=== PATIENT | male | born 1995 | race Caucasian/White ===

== ENCOUNTER 2018-02-04 01:46 | Inpatient (IN) | payer BC ==
[2018-02-04 03:18] LABS: BASO # 0.1 10^3/uL (0.0-0.2); BASO % 0.5 % (0.0-1.0); EOS # 0.2 10^3/uL (0.0-0.50); EOS % 2.5 % (0.0-3.0); HEMATOCRIT 47.1 % (42.0-52.0); HEMOGLOBIN 16.3 g/dl (13.5-17.5); IMMATURE GRANULOCYTE % 0.3 % (0-3.0); LYMPH # 1.8 10^3/uL (1.5-6.5); LYMPH % 18.4 % (24.0-44.0); MEAN CORPUSCULAR HGB CONC 34.6 g/dl (32.0-36.5); MEAN CORPUSCULAR VOLUME 86.6 fl (80.0-96.0); MONO # 0.8 10^3/uL (0.0-0.8); MONO % 8.6 % (0.0-5.0); NEUTROPHILS # 6.6 10^3/uL (1.8-7.7); NEUTROPHILS % 69.7 % (36.0-66.0); PLATELET COUNT, AUTOMATED 188 10^3/uL (150-450); RED BLOOD COUNT 5.44 10^6/uL (4.30-6.10); RED CELL DISTRIBUTION WIDTH 12.4 % (11.5-14.5); WHITE BLOOD COUNT 9.5 10^3/uL (4.0-10.0)
[2018-02-04 03:39] LABS: ALBUMIN 4.9 GM/DL (3.2-5.2); ALBUMIN/GLOBULIN RATIO 1.58 (1.00-1.93); ALKALINE PHOSPHATASE 72 U/L (45-117); ALT/SGPT 45 U/L (12-78); ANION GAP 9 MEQ/L (8-16); AST/SGOT 26 U/L (7-37); BILIRUBIN,DIRECT 0.2 MG/DL (0.0-0.2); BILIRUBIN,TOTAL 0.7 MG/DL (0.2-1.0); BLOOD UREA NITROGEN 37 MG/DL (7-18); CALCIUM LEVEL 9.9 MG/DL (8.5-10.1); CARBON DIOXIDE LEVEL 29 MEQ/L (21-32); CHLORIDE LEVEL 103 MEQ/L (98-107); CREATININE FOR GFR 1.18 MG/DL (0.70-1.30); GLOMERULAR FILTRATION RATE > 60.0 (>60); GLUCOSE, FASTING 109 MG/DL (70-100); LIPASE 76 U/L (73-393); POTASSIUM SERUM 3.7 MEQ/L (3.5-5.1); SODIUM LEVEL 141 MEQ/L (136-145)
[2018-02-04] MEDS: NS 1,000 ML IV ×2 (04:27→08:03)
[2018-02-04] MEDS: GASTROGRAFIN SOLUTION 30ML PO ×2 (05:13→06:16)
[2018-02-04] MEDS ORDERED: ISOVUE-370 76% 100ML VIAL (Q9967) As Ordered (06:15)
[2018-02-04] MEDS: LR 1,000 ML IV ×3 (08:40→23:59)
[2018-02-04] MEDS: MORPHINE 4 MG/ML 1ML VIAL/SYRINGE (J2270) IV ×2 (08:43→10:53)
[2018-02-04] MEDS ORDERED: ONDANSETRON 4MG/2ML VIAL (J2405) IV (08:45)
[2018-02-04] MEDS ORDERED: ACETAMINOPHEN TAB 650MG DOSE (2X325MG) PO (08:45)
[2018-02-04] MEDS: KETOROLAC 30 MG/ML VIAL (J1885) IV (14:12)
[2018-02-04] MEDS: FLEET ENEMA PR (14:12)
== END 2018-02-05 01:16 | disposition left against medical advice (07) | DRG 247 ==
LOC: M ED 01:46 → M ED INP 08:31 → M MS5PR 13:00
DX: K56.600 Partial intestinal obstruction, unspecified as to cause (principal); K59.00 Constipation, unspecified; Z88.8 Allergy status to other drugs, medicaments and biological substances; Z88.5 Allergy status to narcotic agent

== ENCOUNTER → 2018-09-17 | Outpatient (CLI) | payer BC ==
[~2018-09-17] MED LIST: ACET500T2 OR; CONC18TA OR; SERAQUEL; Seroquel; no home meds
== END ==
LOC: M OUTALCOH 09:21
PROVIDERS: ATTEND Psychiatry & Neurology Psychiatry
DX: Z13.89 Encounter for screening for other disorder (principal); F15.20 Other stimulant dependence, uncomplicated

== ENCOUNTER → 2018-10-03 | Outpatient (RCR) | payer BC | LOC: M OUTALCOH 09-25 08:33 | PROVIDERS: ATTEND Psychiatry & Neurology Psychiatry | DX: F15.20 Other stimulant dependence, uncomplicated (principal); F12.10 Cannabis abuse, uncomplicated; F17.200 Nicotine dependence, unspecified, uncomplicated ==

== ENCOUNTER 2018-10-29 08:49 | Outpatient (RCR) | payer BC | END 2018-11-03 | LOC: M OUTALCOH 08:49 | PROVIDERS: ATTEND Psychiatry & Neurology Psychiatry | DX: F15.20 Other stimulant dependence, uncomplicated (principal); F12.10 Cannabis abuse, uncomplicated; F17.200 Nicotine dependence, unspecified, uncomplicated ==

== ENCOUNTER 2019-01-02 10:00 | Outpatient (RCR) | payer BC | END 2019-01-03 | LOC: M OUTALCOH 10:00 | PROVIDERS: ATTEND Psychiatry & Neurology Psychiatry | DX: F15.20 Other stimulant dependence, uncomplicated (principal); F12.10 Cannabis abuse, uncomplicated; F17.200 Nicotine dependence, unspecified, uncomplicated ==

== ENCOUNTER 2019-01-31 08:45 | Outpatient (RCR) | payer BC | END 2019-02-02 | LOC: M OUTALCOH 08:45 | PROVIDERS: ATTEND Psychiatry & Neurology Psychiatry | DX: F15.20 Other stimulant dependence, uncomplicated (principal); F12.10 Cannabis abuse, uncomplicated; F17.200 Nicotine dependence, unspecified, uncomplicated ==

== ENCOUNTER 2019-02-21 08:45 | Outpatient (RCR) | payer BC | END 2019-03-05 | LOC: M OUTALCOH 08:45 | PROVIDERS: ATTEND Psychiatry & Neurology Psychiatry | DX: F15.20 Other stimulant dependence, uncomplicated (principal); F12.10 Cannabis abuse, uncomplicated; F17.200 Nicotine dependence, unspecified, uncomplicated ==

== ENCOUNTER → 2020-02-09 | Outpatient (CLI) | payer OTHER | LOC: M OUTALCOH 09:42 | PROVIDERS: ATTEND Psychiatry & Neurology Addiction Medicine | DX: F15.20 Other stimulant dependence, uncomplicated (principal) ==

== ENCOUNTER 2020-03-03 16:00 | Outpatient (RCR) | payer OTHER | END 2020-03-05 | LOC: M OUTALCOH 16:00 | PROVIDERS: ATTEND Psychiatry & Neurology Addiction Medicine | DX: F15.20 Other stimulant dependence, uncomplicated (principal); F17.200 Nicotine dependence, unspecified, uncomplicated ==

== ENCOUNTER 2020-03-31 15:53 | Outpatient (RCR) | payer OTHER | END 2020-04-05 | LOC: M OUTALCOH 15:53 | PROVIDERS: ATTEND Psychiatry & Neurology Addiction Medicine | DX: F15.20 Other stimulant dependence, uncomplicated (principal); F17.200 Nicotine dependence, unspecified, uncomplicated ==

== ENCOUNTER 2020-05-03 14:21 | Outpatient (RCR) | payer OTHER | END 2020-05-05 | LOC: M OUTALCOH 14:21 | PROVIDERS: ATTEND Psychiatry & Neurology Addiction Medicine | DX: F15.20 Other stimulant dependence, uncomplicated (principal); F17.200 Nicotine dependence, unspecified, uncomplicated ==

== ENCOUNTER 2020-06-01 13:00 | Outpatient (RCR) | payer OTHER | END 2020-06-05 | LOC: M OUTALCOH 13:00 | PROVIDERS: ATTEND Psychiatry & Neurology Addiction Medicine | DX: F15.20 Other stimulant dependence, uncomplicated (principal); F17.200 Nicotine dependence, unspecified, uncomplicated ==

== ENCOUNTER 2020-06-30 13:00 | Outpatient (RCR) | payer OTHER | END 2020-07-05 | LOC: M OUTALCOH 13:00 | PROVIDERS: ATTEND Psychiatry & Neurology Addiction Medicine | DX: F15.20 Other stimulant dependence, uncomplicated (principal); F17.200 Nicotine dependence, unspecified, uncomplicated ==

== ENCOUNTER 2020-08-03 14:54 | Outpatient (RCR) | payer OTHER | END 2020-08-05 | LOC: M OUTALCOH 14:54 | PROVIDERS: ATTEND Psychiatry & Neurology Addiction Medicine | DX: F15.20 Other stimulant dependence, uncomplicated (principal); F17.200 Nicotine dependence, unspecified, uncomplicated ==

== ENCOUNTER 2020-09-09 13:09 | Outpatient (RCR) | payer OTHER | END 2020-10-03 | LOC: M OUTALCOH 13:09 | PROVIDERS: ATTEND Psychiatry & Neurology Addiction Medicine | DX: F15.21 Other stimulant dependence, in remission (principal); F17.200 Nicotine dependence, unspecified, uncomplicated ==

== ENCOUNTER 2020-10-14 08:00 | Outpatient (RCR) | payer OTHER ==
[2020-10-30] MEDS ORDERED: QUET200T2 PO (16:57)
[2020-10-30] MEDS ORDERED: ACET-908 PO (16:57)
[2020-10-30] MEDS ORDERED: [UNRECOGNIZED DRUG - CODE] MT (16:57)
[2020-10-30] MEDS ORDERED: IBUP200T45 PO (16:57)
== END 2020-11-03 ==
LOC: M OUTALCOH 08:00
PROVIDERS: ATTEND Psychiatry & Neurology Psychiatry
DX: F15.20 Other stimulant dependence, uncomplicated (principal); F17.200 Nicotine dependence, unspecified, uncomplicated

== ENCOUNTER 2020-10-30 16:27 | Emergency (ER) | payer OTHER ==
[~2020-10-30] VITALS: Ht 172.7 cm; Wt 81.5 kg
[2020-10-30 16:27] VITALS: BP 134/70
[2020-10-30] MEDS ORDERED: QUET200T2 PO (16:57)
[2020-10-30] MEDS ORDERED: IBUP200T45 PO (16:57)
[2020-10-30] MEDS ORDERED: ACET-908 PO (16:57)
[2020-10-30] MEDS ORDERED: [UNRECOGNIZED DRUG - CODE] MT (16:57)
[2020-10-30] MEDS ORDERED: KETOROLAC 60MG 2ML VIAL IM ONE (17:35)
== END 2020-10-30 18:49 | disposition home or self-care (01) ==
LOC: M ED 16:27
DX: K02.9 Dental caries, unspecified (principal); F41.9 Anxiety disorder, unspecified; F32.9 Major depressive disorder, single episode, unspecified; F17.200 Nicotine dependence, unspecified, uncomplicated; Z88.5 Allergy status to narcotic agent; Z88.8 Allergy status to other drugs, medicaments and biological substances; Z88.6 Allergy status to analgesic agent
CPT/HCPCS: 96372; 99282; J1885

== ENCOUNTER 2020-11-25 10:19 | Outpatient (RCR) | payer OTHER ==
[~2020-11-25 10:19] MED LIST changes: +ACET-910 PO; +IBUP200T45 PO; +QUET200T2 PO; +[UNRECOGNIZED DRUG - CODE] MT
== END 2020-12-03 ==
LOC: M OUTALCOH 10:19
PROVIDERS: ATTEND Psychiatry & Neurology Psychiatry
DX: F15.20 Other stimulant dependence, uncomplicated (principal); F17.200 Nicotine dependence, unspecified, uncomplicated

== ENCOUNTER 2021-01-11 08:00 | Outpatient (RCR) | payer OTHER | END 2021-02-02 | LOC: M OUTALCOH 08:00 | PROVIDERS: ATTEND Psychiatry & Neurology Psychiatry | DX: F15.20 Other stimulant dependence, uncomplicated (principal); F17.200 Nicotine dependence, unspecified, uncomplicated ==

== ENCOUNTER 2021-02-22 08:00 | Outpatient (RCR) | payer OTHER | END 2021-03-05 | LOC: M OUTALCOH 08:00 | PROVIDERS: ATTEND Psychiatry & Neurology Psychiatry | DX: F15.20 Other stimulant dependence, uncomplicated (principal); F17.200 Nicotine dependence, unspecified, uncomplicated ==

== ENCOUNTER 2021-05-30 13:17 | Emergency (ER) | payer OTHER ==
[~2021-05-30] VITALS: Ht 177.8 cm; Wt 90.9 kg
[2021-05-30 13:17] VITALS: BP 132/72
[~2021-05-30 13:17] MED LIST changes: -IBUP200T45 PO; +IBUP200T46 PO
--- OUTSIDE RECORDS SUMMARY | 2021-05-30 13:25 | CCD ---
Author Organization Unknown Address [address] [place] [address] Phone [phone] Care Team Providers Care Sql Application Developer Name Role Phone WillMark Unavailable Unavailable Allergies Code Code System Name Reaction Severity Status Onset 72 RxNorm Naloxone Other Moderate Active NKDA Medications Name Status Start Date Stop Date buprenorphine HCl 8 mg sublingual tablet One once daily. 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 Completed 11/29/2020 quetiapine 100 mg tablet TAKE ONE TABLET BY MOUTH EVERY DAY Active Not available quetiapine 200 mg tablet TAKE ONE TABLET BY MOUTH AT BEDTIME Completed 05/2021 sertraline 100 mg tablet TAKE ONE TABLET BY MOUTH EVERY DAY Active Not available Suboxone 8 mg-[address] 1 film every day by sublingual route. Active Not available Notes: Pt reports these are former meds, but has not taken them due to lack of PCP Problems Name Status Onset Date Source Opioid Dependence Active 11/22/2020 Anxiety Active 12/13/2020 Procedures Date Name Performed by 08/06/2013 Bowel Surgery Procedure Information not available Results Lab Results Date Name Specimen Result Interpretation Description Value Range Status Address 03/14/2021 Drug of Abuse Panel, Urine No observation recorded. [facility] (Lab): [address], [place] 02/14/2021 Drug of Abuse Panel, Urine No observation recorded. [facility] (Lab): [address], [place] 01/22/2021 Drug of Abuse Panel, Urine No observation recorded. [facility] (Lab): [address], [place] 01/05/2021 Drug Screen, Urine No observation recorde d. [facility] (Lab): [address], [place] 12/13/2020 Drug of Abuse Panel, Urine Urine No observation recorded. [facility] (Lab): [address], [place] 12/06/2020 Drug of Abuse Panel, Urine Urine No observation recorded. [facility] (Lab): [address], [place] 11/29/2020 Drug of Abuse Panel, Urine Urine No observation recorded. [facility] (Lab): [address], [facility] 11/22/2020 Drug of Abuse Panel, Urine Urine No observation recorded. [facility] (Lab): [address], [facility] Past Encounters 04/12/2021 Opioid Dependence Mark Will MD: [address] [place] [address], Ph. 03/14/2021 Anxiety; Opioid Dependence; Opioid Dependence in Remission Mark Will MD: [address] [place] [address], Ph. 02/14/2021 Opioid Dependence in Remission Mark Will MD: [address] [place] [address], Ph. 01/18/2021 Opioid Dependence in Remission Mark Will MD: [address] [place] [phone], Ph. 01/05/2021 Opioid Dependence Mark Will MD: [address] [place] [address], Ph. 12/20/2020 Opioid Dependence Mark Will MD: [address] [place] [address], Ph. 12/13/2020 Opioid Dependence; Anxiety Mark Will MD: [address] [place] [phone], Ph. 12/06/2020 Opioid Dependence; Allergy to Drug Mark Will MD: [address] [place] [address], Ph. 11/29/2020 Opioid Dependence Mark Will MD: [address] [place] [address], Ph. 11/22/2020 Opioid Dependence Mark Will MD: [address] [place] [phone], Ph. 10/20/2020 Mark Will MD: [address] [place] [address], Ph. Social History Tobacco Smoking Status Heavy Tobacco Smoker (1/2 pack per a day) Vaccine List None recorded. Plan of Care Reminders Provider Appointments None recorded. Lab None recorded. Referral None recorded. Procedures None recorded. Surgeries None recorded. Imaging None recorded. Vitals 04/12/2021 02:20PM MAT Height Weight BMI Blood Pressure 69 in 198 lbs 29.2 kg/m2 115/73 mm[Hg] 03/14/2021 02:00PM MAT Height Weight BMI Blood Pressure 69 in 191 lbs 8 oz 28.3 kg/m2 117/74 mm[Hg] 02/14/2021 02:40PM MAT Height Weight BMI Blood Pressure 69 in 184 lbs 4 oz 27.2 kg/m2 101/63 mm[Hg] 01/18/2021 04:20PM MAT Height Weight BMI Blood Pressure 69 in 184 lbs 27.2 kg/m2 115/69 mm[Hg] 01/05/2021 03:20PM MAT Height Weight BMI Blood Pressure 69 in 184 lbs 27.2 kg/m2 107/63 mm[Hg] 12/20/2020 03:40PM TELEHEALTH 20 Height 69 in 12/13/2020 09:00AM MAT Height Weight BMI Blood Pressure 69 in 184 lbs 27.2 kg/m2 125/79 mm[Hg] 12/06/2020 09:20AM MAT Height Weight BMI Blood Pressure 69 in 183 lbs 6 oz 27.1 kg/m2 129/81 mm[Hg] 11/29/2020 09:20AM MAT Height Weight BMI Blood Pressure 69 in 181 lbs 8 oz 26.8 kg/m2 133/83 mm[Hg] 11/22/2020 10:20AM MAT Height Weight BMI Blood Pressure 69 in 151 lbs 22.3 kg/m2 107/65 mm[Hg]
--- OUTSIDE RECORDS SUMMARY | 2021-05-30 13:25 | CCD ---
Author Organization Unknown Address [address] [place] [address] Phone [phone] Care Team Providers Care Clinical Manager Home Care Name Role Phone WillMark Unavailable Unavailable Allergies Code Code System Name Reaction Severity Status Onset 72 RxNorm Naloxone Other Moderate Active NKDA Medications Name Status Start Date Stop Date buprenorphine 8 mg-naloxone 2 mg subling ual film PLACE ONE FILM UNDER THE TONGUE EVERY DAY MAXIMUM DAILY DOSE 1 Active Not available buprenorphine HCl 8 mg sublingual tablet One once daily. 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 Completed 11/29/2020 ibuprofen 800 mg tablet TAKE ONE TABLET BY MOUTH THREE TIMES A DAY NEEDED Active Not available penicillin V potassium 500 mg tablet TAKE ONE TABLET BY MOUTH EVERY 8 HOURS Active Not available quetiapine 100 mg tablet TAKE ONE TABLET BY MOUTH EVERY DAY Active Not available quetiapine 200 mg tablet TAKE ONE TABLET BY MOUTH AT BEDTIME Completed 05/2021 sertraline 100 mg tablet TAKE ONE TABLET BY MOUTH EVERY DAY Active Not available Notes: Pt reports these are former meds, but has not taken them due to lack of PCP Problems Name Status Onset Date Source Opioid Dependence Active 11/22/2020 Anxiety Active 12/13/2020 Dental Abscess Active 04/14/2021 Procedures Date Name Performed by 08/06/2013 Bowel Surgery Procedure Information not available Results Lab Results Date Name Specimen Result Interpretation Description Value Range Status Address 03/14/2021 Drug of Abuse Panel, Urine No observation recorded. [facility] (Lab): [address], [place] 02/14/2021 Drug of Abuse Panel, Urine No observation recorded. [facility] (Lab): [address], [place] 01/22/2021 Drug of Abuse Panel, Urine No observation recorded. [facility] (Lab): [address], [place] 01/05/2021 Drug Screen, Urine No observation recorde d. [facility] (Lab): [address], [place] 12/13/2020 Drug of Abuse Panel, Urine Urine No observation recorded. [facility] (Lab): [address], [place] 12/06/2020 Drug of Abuse Panel, Urine Urine No observation recorded. [facility] (Lab): [address], [facility] 11/29/2020 Drug of Abuse Panel, Urine Urine No observation recorded. [facility] (Lab): [address], [place] 11/22/2020 Drug of Abuse Panel, Urine Urine No observation recorded. [facility] (Lab): [address], [place] Drug of Abuse Panel, Urine Urine No observation rec orded. [facility] (Lab): [address], [facility] Past Encounters 05/13/2021 Mark Will MD: [address] [place] [address], Ph. 04/12/2021 Opioid Dependence Mark Will MD: [address] [place] [phone], Ph. 03/14/2021 Anxiety; Opioid Dependence; Opioid Dependence in Remission Mark Will MD: [address] [place] [address], Ph. 02/14/2021 Opioid Dependence in Remission Mark Will MD: [address] [place] [address], Ph. 01/18/2021 Opioid Dependence in Remission Mark Will MD: [address] [place] [address], Ph. 01/05/2021 Opioid Dependence Mark Will MD: [address] [place] [address], Ph. 12/20/2020 Opioid Dependence Mark Will MD: [address] [place] [address], Ph. 12/13/2020 Opioid Dependence; Anxiety Mark Will MD: [address] [place] [phone], Ph. 12/06/2020 Opioid Dependence; Allergy to Drug Mark Will MD: [address] [place] [address], Ph. 11/29/2020 Opioid Dependence Mark Will MD: [address] [place] [address], Ph. 11/22/2020 Opioid Dependence Mark Will MD: [address] [place] [address], Ph. 10/20/2020 Mark Will MD: [address] [place] [address], Ph. Social History Tobacco Smoking Status Heavy [...]
--- OUTSIDE RECORDS SUMMARY | 2021-05-30 13:25 | CCD ---
Author Organization Unknown Address [address] [place] [address] Phone [phone] Care Team Providers Care Talent Partner Name Role Phone WillMark Unavailable Unavailable Allergies Code Code System Name Reaction Severity Status Onset 72 RxNorm Naloxone Other Moderate Active NKDA Medications Name Status Start Date Stop Date buprenorphine 8 mg-naloxone 2 mg subling ual film PLACE ONE FILM UNDER THE TONGUE EVERY DAY MAXIMUM DAILY DOSE 1 FILM Active Not available buprenorphine HCl 8 mg [...] Result Interpretation Description Value Range Status Address 02/14/2021 Drug of Abuse Panel, Urine No observation recorded. [facility] (Lab): [address], [place] 01/22/2021 Drug of Abuse Panel, Urine No observation recorded. [facility] (Lab): [address], [place] 01/05/2021 Drug Screen, Urine No observation recorde d. [facility] (Lab): [address], [place] 12/13/2020 Drug of Abuse Panel, Urine Urine No observation recorded. [facility] (Lab): [address], [place] 12/06/2020 Drug of Abuse Panel, Urine Urine No observation recorded. [facility] (Lab): [address], [place] 11/29/2020 Drug of Abuse Panel, Urine Urine No observation recorded. [facility] (Lab): [address], [facility] 11/22/2020 Drug of Abuse Panel, Urine Urine No observation recorded. [facility] (Lab): [address], [place] Past Encounters 03/14/2021 Anxiety; Opioid Dependence; Opioid Dependence in Remission Mark Will MD: [address] [place] [phone], Ph. 02/14/2021 Opioid Dependence in Remission Mark Will MD: [address] [place] [phone], Ph. 01/18/2021 Opioid Dependence in Remission Mark Will MD: [address] [place] [phone], Ph. 01/05/2021 Opioid Dependence Mark Will MD: [address] [place] [phone], Ph. 12/20/2020 Opioid Dependence Mark Will MD: [address] [place] [phone], Ph. 12/13/2020 Opioid Dependence; Anxiety Mark Will MD: [address] [place] [phone], Ph. 12/06/2020 Opioid Dependence; Allergy to Drug Mark Will MD: [address] [place] [phone], Ph. 11/29/2020 Opioid Dependence Mark Will MD: [address] [place] [phone], Ph. 11/22/2020 Opioid Dependence Mark Will MD: [address] [place] [phone], Ph. 10/20/2020 Mark Will MD: [address] [place] [phone], Ph. Social History Tobacco Smoking Status Heavy Tobacco Smoker (1/2 pack per a day) Vaccine List None recorded. Plan of Care Reminders Provider Appointments None recorded. Lab None recorded. Referral None recorded. Procedures None recorded. Surgeries None recorded. Imaging None recorded. Vitals 03/14/2021 02:00PM MAT Height Weight BMI Blood [...]
--- OUTSIDE RECORDS SUMMARY | 2021-05-30 13:26 | CCD ---
Author Author [facility] Organization [facility] Address Unknown Phone Unavailable Care Team Providers Care Legal Paraprofessional Name Role Phone Nicki Will MD Unavailable Unavailable Nicki Will MD Unavailable Unavailable Nicki Will MD Unavailable Unavailable Nicki Will MD Unavailable Unavailable Nicki Will MD Unavailable Unavailable Nicki Will MD Unavailable Unavailable Nicki Will MD Unavailable Unavailable Nicki Will MD Unavailable Unavailable Nicki Will MD Unavailable Unavailable Nicki Will MD Unavailable Unavailable Nicki Will MD Unavailable Unavailable Nicki Will MD Unavailable Unavailable Nicki Will MD Unavailable Unavailable Nicki Will MD Unavailable Unavailable Nicki Will MD Unavailable Unavailable Nicki Will MD Unavailable Unavailable Nicki Will MD Unavailable Unavailable Nicki Will MD Unavailable Unavailable Nicki Will MD Unavailable Unavailable Nicki Will MD Unavailable Unavailable Nicki Will MD Unavailable Unavailable Nicki Will MD Unavailable Unavailable Nicki Will MD Unavailable Unavailable Nicki Will MD Unavailable Unavailable Nicki Will MD Unavailable Unavailable Nicki Will MD Unavailable Unavailable Nicki Will MD Unavailable Unavailable Nicki Will MD Unavailable Unavailable Nicki Will MD Unavailable Unavailable Nicki Will MD Unavailable Unavailable Nicki Will MD Unavailable Unavailable Nicki Will MD Unavailable Unavailable Nicki Will MD Unavailable Unavailable Nicki Will MD Unavailable Unavailable Nicki Will MD Unavailable Unavailable Nicki Will MD Unavailable Unavailable Nicki Will MD Unavailable Unavailable Nicki Will MD Unavailable Unavailable Nicki Will MD Unavailable Unavailable Nicki Will MD Unavailable Unavailable Nicki Will MD Unavailable Unavailable Nicki Will MD Unavailable Unavailable Nicki Will MD Unavailable Unavailable Nicki Will MD Unavailable Unavailable Nicki Will MD Unavailable Unavailable Nicki Will MD Unavailable Unavailable Nicki Will MD Unavailable Unavailable Nicki Will MD Unavailable Unavailable Nicki Will MD Unavailable Unavailable Nicki Will MD Unavailable Unavailable Nicki Will MD Unavailable Unavailable Nicki Will MD Unavailable Unavailable Nicki Will MD Unavailable Unavailable Nicki Will MD Unavailable Unavailable Nicki Will MD Unavailable Unavailable Nicki Will MD Unavailable Unavailable Nicki Will MD Unavailable Unavailable Nicki Will MD Unavailable Unavailable Nicki Will MD Unavailable Unavailable Nicki Will MD Unavailable Unavailable Nicki Will MD Unavailable Unavailable Nicki Will MD Unavailable Unavailable Nicki Will MD Unavailable Unavailable Nicki Will MD Unavailable Unavailable Nicki Will MD Unavailable Unavailable Nicki Will MD Unavailable Unavailable Nicki Will MD Unavailable Unavailable Nicki Will MD Unavailable Unavailable Nicki Will MD Unavailable Unavailable Nicki Will MD Unavailable Unavailable Nicki Will MD Unavailable Unavailable Nicki Will MD Unavailable Unavailable Nicki Will MD Unavailable Unavailable Nicki Will MD Unavailable Unavailable Nicki Will MD Unavailable Unavailable Nicki Will MD Unavailable Unavailable Nicki Will MD Unavailable Unavailable Nicki Will MD Unavailable Unavailable Nicki Will MD Unavailable Unavailable Nicki Will MD Unavailable Unavailable Nicki Will MD Unavailable Unavailable Nicki Will MD Unavailable Unavailable Nicki Will MD Unavailable Unavailable Nicki Will MD Unavailable Unavailable Nicki Will MD Unavailable Unavailable Nicki Will MD Unavailable Unavailable Nicki Will MD Unavailable Unavailable Nicki Will MD Unavailable Unavailable Nicki Will MD Unavailable Unavailable Nicki Will MD Unavailable Unavailable Nicki Will MD Unavailable Unavailable Nicki Will MD Unavailable Unavailable Nicki Will MD Unavailable Unavailable NO, PCP Unavailable Unavailable Cristi Ashford MD Unavailable Unavailable Cristi Ashford MD Unavailable Unavailable Cristi Ashford MD Unavailable Unavailable Cristi Ashford MD Unavailable Unavailable Cristi Ashford MD Unavailable Unavailable Cristi Ashford MD Unavailable Unavailable Swatsworth, A Hadley PA Unavailable Unavailable Swatsworth, A Hadley PA Unavailable Unavailable Swatsworth, A Hadley PA Unavailable Unavailable Swatsworth, A Hadley PA Unavailable Unavailable Swatsworth, A Hadley PA Unavailable Unavailable Swatsworth, A Hadley PA Unavailable Unavailable Swatsworth, A Hadley PA Unavailable Unavailable Swatsworth, A Hadley PA Unavailable Unavailable Swatsworth, A Hadley PA Unavailable Unavailable Swatsworth, A Hadley PA Unavailable Unavailable Swatsworth, A Hadley PA Unavailable Unavailable Swatsworth, A Hadley PA Unavailable Unavailable Swatsworth, A Hadley PA Unavailable Unavailable Swatsworth, A Hadley PA Unavailable Unavailable Swatsworth, A Hadley PA Unavailable Unavailable Re-disclosure Warning The records that you are about to access may contain information from federally-assisted alcohol or drug abuse programs. If such information is present, then the following federally mandated warning applies: This information has been disclosed to you from records protected by federal confidentiality rules (42 CFR part 2). The federal rules prohibit you from making any further disclosure of this information unless further disclosure is expressly permitted by the written consent of the person to whom it pertains or as otherwise permitted by 42 CFR part 2. A general authorization for the release of medical or other information is NOT sufficient for this purpose. The Federal rules restrict any use of the information to criminally investigate or prosecute any alcohol or drug abuse patient.The records that you are about to access may contain highly sensitive health information, the redisclosure of which is protected by Article 27-F of the [facility] Public Health law. If you continue you may have access to information: Regarding HIV / AIDS; Provided by facilities licensed or operated by the [facility] Office of Mental Health; or Provided by the [facility] Office for People With Developmental Disabilities. If such information is present, then the following [facility] mandated warning applies: This information has been disclosed to you from confidential records which are protected by state law. State law prohibits you from making any further disclosure of this information without the specific written consent of the person to whom it pertains, or as otherwise permitted by law. Any unauthorized further disclosure in violation of state law may result in a fine or nursing home sentence or both. A general authorization for the release of medical or other information is NOT sufficient authorization for further disc losure. Allergies and Adverse Reactions Type Description Substance Reaction Status Data Source(s ) Propensity to adverse reactions BENADRYL BENADRYL [facility] Propensity to adverse reactions VICODIN VICODIN [facility] Allergy to substance Allergy to substance Allergy to substance TRAM ([facility]) Encounters Encounter Providers Location Date Indications Data Source(s ) Mark Will MD: [address] [place] [address], Ph. Attender: Mark Will MD [facility] Medical 05/13/2021 12:00:00 AM EDT TRAM ([facility]) Mark Will MD: [address] [place] [address], Ph. Attender: Mark Will MD [facility] Medical 04/12/2021 12:00:00 AM EDT TRAM ([facility]) Mark Will MD: [address] [place] [address]1 504, Ph. Attender: Mark Will MD [facility] Medical 04/12/2021 12:00:00 AM EDT TRAM ([facility]) Mark Will MD: [address] [place] [address]4 504, Ph. Attender: Mark Will MD [facility] Medical 03/14/2021 12:00:00 AM EDT TRAM ([facility]) Mark Will MD: [address] [place] [address]7 504, Ph. Attender: Mark Will MD [facility] Medical 03/14/2021 12:00:00 AM EDT TRAM ([facility]) Mark Will MD: [address] [place] [address]5 504, Ph. Attender: Mark Will MD [facility] Medical 03/14/2021 12:00:00 AM EDT TRAM ([facility]) Mark Will MD: [address] [place] [address]5 [address], Ph. Attender: Mark Will MD [facility] Medical 02/14/2021 12:00:00 AM EDT TRAM ([facility]) Mark Will MD: [address] [place] [address]5 504, Ph. Attender: Mark Will MD [facility] Medical 02/14/2021 12:00:00 AM EDT TRAM ([facility]) Mark Will MD: [address] [place] [address], Ph. Attender: Mark Will MD [facility] Medical 02/14/2021 12:00:00 AM EDT TRAM ([facility]) Mark Will MD: [address] [place] [address], Ph. Attender: Mark Will MD [facility] Medical 02/14/2021 12:00:00 AM EDT TRAM ([facility]) Mark Will MD: [address] [place] [address], Ph. Attender: Mark Will MD [facility] Medical 01/18/2021 12:00:00 AM EDT TRAM ([facility]) Mark Will MD: [address] [place] [address]4 [address], Ph. Attender: Mark Will MD [facility] Medical 01/18/2021 12:00:00 AM EDT TRAM ([facility]) Mark Will MD: [address] [place] [address], Ph. Attender: Mark Will MD [facility] Medical 01/18/2021 12:00:00 AM EDT TRAM ([facility]) Mark Will MD: [address] [place] [address]1 504, Ph. Attender: Mark Will MD [facility] Medical 01/18/2021 12:00:00 AM EDT TRAM ([facility]) Mark Will MD: [address] [place] [address], Ph. Attender: Mark Will MD [facility] Medical 01/18/2021 12:00:00 AM EDT TRAM ([facility]) Mark Will MD: [address] [place] [address], Ph. Attender: Mark Will MD [facility] Medical 01/05/2021 12:00:00 AM EDT TRAM ([facility]) Mark Will MD: [address] [place] [address]4 504, Ph. Attender: Mark Will MD [facility] Medical 01/05/2021 12:00:00 AM EDT TRAM ([facility]) Mark Will MD: [address] [place] [address], Ph. Attender: Mark Will MD [facility] Medical 01/05/2021 12:00:00 AM EDT TRAM ([facility]) Mark Will MD: [address] [place] [address], Ph. Attender: Mark Will MD [facility] Medical 01/05/2021 12:00:00 AM EDT TRAM ([facility]) Mark Will MD: [address] [place] [address]1 504, Ph. Attender: Mark Will MD [facility] Medical 01/05/2021 12:00:00 AM EDT TRAM ([facility]) Mark Will MD: [address] [place] [address], Ph. Attender: Mark Will MD [facility] Medical 01/05/2021 12:00:00 AM EDT TRAM ([facility]) Mark Will MD: [address] [place] [address] 504, Ph. Attender: Mark Will MD [facility] Medical 12/20/2020 12:00:00 AM EDT TRAM ([facility]) Mark Will MD: [address] [place] [address], Ph. Attender: Mark Will MD [facility] Medical 12/20/2020 12:00:00 AM EDT TRAM ([facility]) Mark Will MD: [address] [place] [address]3 504, Ph. Attender: Mark Will MD [facility] Medical 12/20/2020 12:00:00 AM EDT TRAM ([facility]) Mark Will MD: [address] [place] [address], Ph. Attender: Mark Will MD [facility] Medical 12/20/2020 12:00:00 AM EDT TRAM ([facility]) Mark Will MD: [address] [place] [address], Ph. Attender: Mark Will MD [facility] Medical 12/20/2020 12:00:00 AM EDT TRAM ([facility]) Mark Will MD: [address] [place] [address], Ph. Attender: Mark Will MD [facility] Medical 12/20/2020 12:00:00 AM EDT TRAM ([facility]) Mark Will MD: [address] [place] [address], Ph. Attender: Mark Will MD [facility] Medical 12/20/2020 12:00:00 AM EDT TRAM ([facility]) Mark Will MD: [address] [place] [address] 504, Ph. Attender: Mark Will MD [facility] Medical 12/13/2020 12:00:00 AM EDT TRAM ([facility]) Mark Will MD: [address] [place] [address], Ph. Attender: Mark Will MD [facility] Medical 12/13/2020 12:00:00 AM EDT TRAM ([facility]) Mark Will MD: [address] [place] [address], Ph. Attender: Mark Will MD [facility] Medical 12/13/2020 12:00:00 AM EDT TRAM ([facility]) Mark Will MD: [address] [place] [address], Ph. Attender: Mark Will MD [facility] Medical 12/13/2020 12:00:00 AM EDT TRAM ([facility]) Mark Will MD: [address] [place] [address], Ph. Attender: Mark Will MD [facility] Medical 12/13/2020 12:00:00 AM EDT TRAM ([facility]) Mark Will MD: [address] [place] [address], Ph. Attender: Mark Will MD [facility] Medical 12/13/2020 12:00:00 AM EDT TRAM ([facility]) Mark Will MD: [address] [place] [address], Ph. Attender: Mark Will MD [facility] Medical 12/13/2020 12:00:00 AM EDT TRAM ([facility]) Mark Will MD: [address] [place] [address], Ph. Attender: Mark Will MD [facility] Medical 12/13/2020 12:00:00 AM EDT TRAM ([facility]) Mark Will MD: [address] [place] [address], Ph. Attender: Mark Will MD [facility] Medical 12/06/2020 12:00:00 AM EDT TRAM ([facility]) Mark Will MD: [address] [place] [address], Ph. Attender: Mark Will MD [facility] Medical 12/06/2020 12:00:00 AM EDT TRAM ([facility]) Mark Will MD: [address] [place] [address]5 504, Ph. Attender: Mark Will MD [facility] Medical 12/06/2020 12:00:00 AM EDT TRAM ([facility]) Mark Will MD: [address] [place] [address], Ph. Attender: Makr Will MD [facility] Medical 12/06/2020 12:00:00 AM EDT TRAM ([facility]) Mark Will MD: [address] [place] [address], Ph. Attender: Mark Will MD [facility] Medical 12/06/2020 12:00:00 AM EDT TRAM ([facility]) Mark Will MD: [address] [place] [address], Ph. Attender: Mark Will MD [facility] Medical 12/06/2020 12:00:00 AM EDT TRAM ([facility]) Mark Will MD: [address] [place] [address] 504, Ph. Attender: Mark Will MD [facility] Medical 12/06/2020 12:00:00 AM EDT ADOL[facility]US ([facility]) Mark Will MD: [address] [place] [address] 504, Ph. Attender: Mark Will MD [facility] Medical 12/06/2020 12:00:00 AM EDT TRAM ([facility]) Mark Will MD: [address] [place] [address] 504, Ph. Attender: Mark Will MD [facility] Medical 12/06/2020 12:00:00 AM EDT ADOL[facility]US ([facility]) Emergency Attender: Cristi Ashford MDConsultant: PCP NO 11/30/2020 06:15:00 PM EDT - 11/30/2020 06:58:00 PM EDT [facility] Patient discharged. Mark Will MD: [address] [place] [address] 504, Ph. Attender: Mark Will MD [facility] Medical 11/29/2020 12:00:00 AM EDT TRAM ([facility]) Mark Will MD: [address] [place] [address] 504, Ph. Attender: Mark Will MD [facility] Medical 11/29/2020 12:00:00 AM EDT TRAM ([facility]) Mark Will MD: [address] [place] [address]1 504, Ph. Attender: Mark Will MD [facility] Medical 11/29/2020 12:00:00 AM EDT TRAM ([facility]) Mark Will MD: [address] [place] [address] 504, Ph. Attender: Mark Will MD [facility] Medical 11/29/2020 12:00:00 AM EDT TRAM ([facility]) Mark Will MD: [address] [place] [address]4 504, Ph. Attender: Mark Will MD [facility] Medical 11/29/2020 12:00:00 AM EDT TRAM ([facility]) Mark Will MD: [address] [place] [address]8 504, Ph. Attender: Mark Will MD [facility] Medical 11/29/2020 12:00:00 AM EDT TRAM ([facility]) Mark Will MD: [address] [place] [address] 504, Ph. Attender: Mark Will MD [facility] Medical 11/29/2020 12:00:00 AM EDT TRAM ([facility]) Mark Will MD: [address] [place] [address]1 504, Ph. Attender: Mark Will MD [facility] Medical 11/29/2020 12:00:00 AM EDT TRAM ([facility]) Mark Will MD: [address] [place] [address]5 504, Ph. Attender: Mark Will MD [facility] Medical 11/29/2020 12:00:00 AM EDT TRAM ([facility]) Mark Will MD: [address] [place] [address]3 504, Ph. Attender: Mark Will MD [facility] Medical 11/29/2020 12:00:00 AM EDT TRAM ([facility]) Mark Will MD: [address] [place] [address]3 504, Ph. Attender: Mark Will MD [facility] Medical 11/22/2020 12:00:00 AM EDT TRAM ([facility]) Mark Will MD: [address] [place] [address]2 504, Ph. Attender: Mark Will MD [facility] Medical 11/22/2020 12:00:00 AM EDT TRAM ([facility]) Mark Will MD: [address] [place] [address] 504, Ph. Attender: Mark Will MD [facility] Medical 11/22/2020 12:00:00 AM EDT TRAM ([facility]) Mark Will MD: [address] [place] [address]2 504, Ph. Attender: Mark Will MD [facility] Medical 11/22/2020 12:00:00 AM EDT TRAM ([facility]) Mark Will MD: [address] [place] [address]3 504, Ph. Attender: Mark Will MD [facility] Medical 11/22/2020 12:00:00 AM EDT TRAM ([facility]) Mark Will MD: [address] [place] [address] 504, Ph. Attender: Mark Will MD [facility] Medical 11/22/2020 12:00:00 AM EDT TRAM ([facility]) Mark Will MD: [address] [place] [address] 504, Ph. Attender: Mark Will MD [facility] Medical 11/22/2020 12:00:00 AM EDT TRAM ([facility]) Mark Will MD: [address] [place] [address]2 504, Ph. Attender: Mark Will MD [facility] Medical 11/22/2020 12:00:00 AM EDT TRAM ([facility]) Mark Will MD: [address] [place] [address]3 504, Ph. Attender: Mark Will MD [facility] Medical 11/22/2020 12:00:00 AM EDT TRAM ([facility]) Mark Will MD: [address] [place] [address]5 504, Ph. Attender: Mark Will MD [facility] Medical 11/22/2020 12:00:00 AM EDT TRAM ([facility]) Mark Will MD: [address] [place] [address]0 504, Ph. Attender: Mark Will MD [facility] Medical 11/22/2020 12:00:00 AM EDT TRAM ([facility]) Mark Will MD: [address] [place] [address]5 504, Ph. Attender: Mark Will MD [facility] Medical 10/20/2020 12:00:00 AM EDT TRAM ([facility]) Mark Will MD: [address] [place] [address]1 504, Ph. Attender: Mark Will MD [facility] Medical 10/20/2020 12:00:00 AM EDT TRAM ([facility]) Mark Will MD: [address] [place] [address]2 504, Ph. Attender: Mark Will MD [facility] Medical 10/20/2020 12:00:00 AM EDT TRAM ([facility]) Mark Will MD: [address] [place] [address]4 504, Ph. Attender: Mark Will MD [facility] Medical 10/20/2020 12:00:00 AM EDT TRAM ([facility]) Mark Will MD: [address] [place] [address] 504, Ph. Attender: Mark Will MD [facility] Medical 10/20/2020 12:00:00 AM EDT TRAM ([facility]) Mark Will MD: [address] [place] [address]5 504, Ph. Attender: Mark Will MD [facility] Medical 10/20/2020 12:00:00 AM EDT TRAM ([facility]) Mark Will MD: [address] [place] [address] 504, Ph. Attender: Mark Will MD [facility] Medical 10/20/2020 12:00:00 AM EDT TRAM ([facility]) Mark Will MD: [address] [place] [address]3 504, Ph. Attender: Mark Will MD [facility] Medical 10/20/2020 12:00:00 AM EDT TRAM ([facility]) Mark Will MD: [address] [place] [address] 504, Ph. Attender: Mark Will MD [facility] Medical 10/20/2020 12:00:00 AM EDT [facility] ([facility]) Mark Will MD: [address] [place] [address]-6 504, Ph. Attender: Mark Will MD [facility] Medical 10/20/2020 12:00:00 AM EDT [facility] ([facility]) Mark Will MD: [address] [place] [address]0 504, Ph. Attender: Mark Will MD [facility] Medical 10/20/2020 12:00:00 AM EDT [facility] ([facility]) Mark Will MD: [address] [place] [address]2 504, Ph. Attender: Mark Will MD [facility] Medical 10/20/2020 12:00:00 AM EDT [facility] ([facility]) Emergency Attender: Cristi Ashford MDConsultant: PCP NO 08/19/2020 05:11:00 PM EST - 08/19/2020 06:05:00 PM EST [facility] Patient discharged. Unknown [id number] [facility] [address] 08/09/2020 12:00:00 AM EST [email or web address] ([facility]) Emergency Attender: Hadley Hayward PAConsultant: PCP NO 04/06/2020 10:12:00 PM EDT - 04/06/2020 10:48:00 PM EDT [facility] Patient discharged. Medications Medication Brand Name Start Date Product Form Dose Route Admi nistrative Instructions Pharmacy Instructions Status Indications Reaction Description Data Source(s) 8-2 mg 05/18/2021 12:00:00 AM EDT film [address] ONE FILM UNDER THE TONGUE EVERY DAY MAXIMUM DAILY DOSE = 1 PLACE ONE FILM UNDER THE TONGUE EVERY DA Y MAXIMUM DAILY DOSE = 1 SOLD: 05/18/2021 [facility] 8-2 mg 04/19/2021 12:00:00 AM EDT film 30 PLACE ONE FILM UNDER THE TONGUE EVERY DAY MAXIMUM DAILY DOSE = 1 PLACE ONE FILM UNDER THE TONGUE EVERY DA Y MAXIMUM DAILY DOSE = 1 SOLD: 04/19/2021 [facility] 500 mg 04/14/2021 12:00:00 AM EDT tablet 42 TAKE ONE TABLET BY MOUTH EVERY 8 HOURS TAKE ONE TABLET BY MOUTH EVERY 8 HOURS SOLD: 04/18/2021 [facility] 800 mg 04/14/2021 12:00:00 AM EDT tablet 90 TAKE ONE TABLET BY MOUTH THREE TIMES A DAY NEEDED TAKE ONE TABLET BY MOUTH THREE TIMES A DAY NEEDED S OLD: 04/18/2021 [facility] 8-2 mg 03/20/2021 12:00:00 AM EDT film 30 PLACE ONE FILM UNDER THE TONGUE EVERY DAY MAXIMUM DAILY DOSE = 1 PLACE ONE FILM UNDER THE TONGUE EVERY DA Y MAXIMUM DAILY DOSE = 1 SOLD: 03/21/2021 [facility] quetiapine 100 MG Oral Tablet QUETIAPINE FUMARATE 03/15/2021 12: 00:00 AM EDT tablet 30 TAKE ONE TABLET BY MOUTH EVERY D AY TAKE ONE TABLET BY MOUTH EVERY DAY SOLD: 05/16/2021 [facility] quetiapine 100 MG Oral Tablet QUETIAPINE FUMARATE 03/15/2021 12: 00:00 AM EDT tablet 30 TAKE ONE TABLET BY MOUTH EVERY D AY TAKE ONE TABLET BY MOUTH EVERY DAY SOLD: 03/15/2021 [facility] 100 mg 03/15/2021 12:00:00 AM EDT tablet 30 TAKE ONE TABLET BY MOUTH EVERY DAY TAKE ONE TABLET BY MOUTH EVERY DAY SOLD: 05/16/2021 [facility] quetiapine 100 MG Oral Tablet QUETIAPINE FUMARATE 03/15/2021 12: 00:00 AM EDT tablet 30 TAKE ONE TABLET BY MOUTH EVERY D AY TAKE ONE TABLET BY MOUTH EVERY DAY SOLD: 04/18/2021 [facility] 100 mg 03/15/2021 12:00:00 AM EDT tablet 30 TAKE ONE TABLET BY MOUTH EVERY DAY TAKE ONE TABLET BY MOUTH EVERY DAY SOLD: 03/15/2021 [facility] 100 mg 03/15/2021 12:00:00 AM EDT tablet 30 TAKE ONE TABLET BY MOUTH EVERY DAY TAKE ONE TABLET BY MOUTH EVERY DAY SOLD: 04/18/2021 [facility] 8-2 mg 02/18/2021 12:00:00 AM EDT film 30 PLACE ONE FILM UNDER THE TONGUE EVERY DAY MAXIMUM DAILY DOSE = 1 PLACE ONE FILM UNDER THE TONGUE EVERY DA Y MAXIMUM DAILY DOSE = 1 SOLD: 02/19/2021 [facility] 100 mg 02/14/2021 12:00:00 AM EDT tablet 30 TAKE ONE TABLET BY MOUTH EVERY DAY TAKE ONE TABLET BY MOUTH EVERY DAY SOLD: 02/14/2021 [facility] quetiapine 100 MG Oral Tablet QUETIAPINE FUMARATE 02/14/2021 12: 00:00 AM EDT tablet 30 TAKE ONE TABLET BY MOUTH EVERY D AY TAKE ONE TABLET BY MOUTH EVERY DAY SOLD: 02/14/2021 [facility] 8-2 mg 01/20/2021 12:00:00 AM EDT film 30 PLACE ONE FILM UNDER THE TONGUE EVERY DAY MAXIMUM DAILY DOSE = 1 PLACE ONE FILM UNDER THE TONGUE EVERY DA Y MAXIMUM DAILY DOSE = 1 SOLD: 01/20/2021 [facility] 8-2 mg 11/29/2020 12:00:00 AM EDT film 8 DISSOLVE ONE FILM UNDER THE TONGUE EVERY DAY MAXIMUM DAILY DOSE = 1 FILM DISSOLVE ONE FILM UNDER THE TONGUE EVERY DAY MAXIMUM DAILY DOSE = 1 FILM SOLD: 11/29/2020 [facility] 8-2 mg 11/22/2020 12:00:00 AM EDT film 8 DISSOLVE 1 FILM STRIP UNDER THE TONGUE ONCE DAILY , MAXIMUM DAILY DOSE = 1 FILM STRIP DISSOLVE 1 FILM STRIP UNDER THE TONGUE ONCE DAILY , MAXIMUM DAILY DOSE = 1 FILM STRIP SOLD: 11/22/2020 [facility] quetiapine 200 MG Oral Tablet QUETIAPINE FUMARATE 09/02/2020 12: 00:00 AM EST tablet 30 TAKE ONE TABLET BY MOUTH AT BEDT RAJEEV TAKE ONE TABLET BY MOUTH AT BEDTIME SOLD: 09/02/2020 [facility] 100 mg 09/02/2020 12:00:00 AM EST tablet 30 TAKE ONE TABLET BY MOUTH EVERY DAY TAKE ONE TABLET BY MOUTH EVERY DAY SOLD: 09/02/2020 [facility] 500 mg 08/16/2020 12:00:00 AM EST capsule 21 TAKE ONE CAPSULE BY MOUTH EVERY 8 HOURS TAKE ONE CAPSULE BY MOUTH EVERY 8 HOURS SOLD: 08/16/2020 [facility] 2 % 04/07/2020 12:00:00 AM EDT solution 100 APPLY 1ML BY MOUTH 5 TIMES A DAY APPLY 1ML BY MOUTH 5 TIMES A DAY SOLD: 04/07/2020 [facility] 875-125 mg 04/07/2020 12:00:00 AM EDT tablet 20 TAKE ONE TABLET BY MOUTH TWICE A DAY DIRECTED TAKE ONE TABLET BY MOUTH TWICE A DAY DIRECTED SOLD: 04/07/2020 [facility] Buprenorphine 8 MG Sublingual Tablet bup renorphine HCl 8 mg sublingual tablet One once daily. 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 buprenorphine HCl 8 mg sublingual tablet One once daily. 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 completed buprenorphine 8 MG Sublin gual Tablet [facility] ([facility]) quetiapine 200 MG Oral Tablet quetiapine 200 mg tablet TAKE ONE TABLET BY MOUTH AT BEDTIME quetiapine 200 mg tablet TAKE ONE TABLET BY MOUTH AT BEDTIME completed quetiapine 200 MG Oral Ta blet TRAM ([facility]) Buprenorphine 8 MG Sublingual Tablet bup renorphine HCl 8 mg sublingual tablet One once daily. 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 buprenorphine HCl 8 mg sublingual tablet One once daily. 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 completed buprenorphine 8 MG Sublin gual Tablet [facility] ([facility]) Buprenorphine 8 MG Sublingual Tablet bup renorphine HCl 8 mg sublingual tablet One once daily. 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 buprenorphine HCl 8 mg sublingual tablet One once daily. 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 completed buprenorphine 8 MG Sublin gual Tablet [facility] ([facility]) quetiapine 200 MG Oral Tablet quetiapine 200 mg tablet TAKE ONE TABLET BY MOUTH AT BEDTIME quetiapine 200 mg tablet TAKE ONE TABLET BY MOUTH AT BEDTIME completed quetiapine 200 MG Oral Ta blet TRAM ([facility]) Buprenorphine 8 MG Sublingual Tablet bup renorphine HCl 8 mg sublingual tablet One once daily. 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 buprenorphine HCl 8 mg sublingual tablet One once daily. 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 completed buprenorphine 8 MG Sublin gual Tablet TRAM ([facility]) Buprenorphine 8 MG Sublingual Tablet bup renorphine HCl 8 mg sublingual tablet One once daily. 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 buprenorphine HCl 8 mg sublingual tablet One once daily. 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 completed buprenorphine 8 MG Sublin gual Tablet TRAM ([facility]) Buprenorphine 8 MG Sublingual Tablet bup renorphine HCl 8 mg sublingual tablet One once daily. 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 buprenorphine HCl 8 mg sublingual tablet One once daily. 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 completed buprenorphine 8 MG Sublin gual Tablet TRAM ([facility]) quetiapine 200 MG Oral Tablet quetiapine 200 mg tablet TAKE ONE TABLET BY MOUTH AT BEDTIME quetiapine 200 mg tablet TAKE ONE TABLET BY MOUTH AT BEDTIME completed quetiapine 200 MG Oral Ta blet TRAM ([facility]) Buprenorphine 8 MG Sublingual Tablet bup renorphine HCl 8 mg sublingual tablet One once daily. 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 buprenorphine HCl 8 mg sublingual tablet One once daily. 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 completed buprenorphine 8 MG Sublin gual Tablet [facility] ([facility]) quetiapine 200 MG Oral Tablet quetiapine 200 mg tablet TAKE ONE TABLET BY MOUTH AT BEDTIME quetiapine 200 mg tablet TAKE ONE TABLET BY MOUTH AT BEDTIME completed quetiapine 200 MG Oral Ta blet TRAM ([facility]) quetiapine 200 MG Oral Tablet quetiapine 200 mg tablet TAKE ONE TABLET BY MOUTH AT BEDTIME quetiapine 200 mg tablet TAKE ONE TABLET BY MOUTH AT BEDTIME completed quetiapine 200 MG Oral Ta blet TRAM ([facility]) Buprenorphine 8 MG Sublingual Tablet bup renorphine HCl 8 mg sublingual tablet One once daily. 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 buprenorphine HCl 8 mg sublingual tablet One once daily. 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 completed buprenorphine 8 MG Sublin gual Tablet TRAM ([facility]) quetiapine 200 MG Oral Tablet quetiapine 200 mg tablet TAKE ONE TABLET BY MOUTH AT BEDTIME quetiapine 200 mg tablet TAKE ONE TABLET BY MOUTH AT BEDTIME completed quetiapine 200 MG Oral Ta blet TRAM ([facility]) quetiapine 200 MG Oral Tablet quetiapine 200 mg tablet TAKE ONE TABLET BY MOUTH AT BEDTIME quetiapine 200 mg tablet TAKE ONE TABLET BY MOUTH AT BEDTIME completed quetiapine 200 MG Oral Ta blet TRAM ([facility]) Buprenorphine 8 MG Sublingual Tablet bup renorphine HCl 8 mg sublingual tablet One once daily. 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 buprenorphine HCl 8 mg sublingual tablet One once daily. 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 completed buprenorphine 8 MG Sublin gual Tablet TRAM ([facility]) Buprenorphine 8 MG Sublingual Tablet bup renorphine HCl 8 mg sublingual tablet One once daily. 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 buprenorphine HCl 8 mg sublingual tablet One once daily. 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 completed buprenorphine 8 MG Sublin gual Tablet [facility] ([facility]) quetiapine 200 MG Oral Tablet quetiapine 200 mg tablet TAKE ONE TABLET BY MOUTH AT BEDTIME quetiapine 200 mg tablet TAKE ONE TABLET BY MOUTH AT BEDTIME completed quetiapine 200 MG Oral Ta blet TRAM ([facility]) Insurance Providers Payer name Policy type / Coverage type Policy ID Covered green party ID Covered green party's relationship to wilson Policy Wilson Plan Information BCBS [facility] 302/307 [id number] MEDICAID M [id number] Self [id number] BLUE CROSS BLUE SHIELD -O/P [id number] 19 [id number] BCBS [facility] 301/801 [id number] SP [id number] BLUE CROSS BLUE SHIELD -O/P [id number] 19 [id number] BLUE CROSS BLUE SHIELD -O/P [id number] 19 [id number] SELF-PAY UNAVAILABLE S UNAVAILA BLE ANSI-Not a Secondary Insurance [id number] BLUE CROSS BLUE SHIELD -O/P [id number] 19 [id number] J LUIS [id number] SP [id number] [facility] 301/801 [id number] SP [id number] [facility] 301/801 [id number] MO2 [id number] EXCELLUS BCBS B [id number] S [id number] BLUE CROSS BLUE SHIELD -CLINIC [id number] 9 [id number] BLUE CROSS BLUE SHIELD -I/P [id number] 19 [id number] BLUE CROSS BLUE SHIELD -O/P [id number] 19 [id number] [facility]BS [facility] 301/801 [id number] MO2 [id number] SELF PAY UNAVAILABLE UNAVAILA BLE EXCELLUS BCBS B [id number] S Y [id number] [facility] [id number] 18 [id number] Problems, Conditions, and Diagnoses Code Display Name Description Problem Type Effective Dates Data Source(s) Z5320 Procedure and treatment not carried out because of patient's decision for unspecified reasons Procedure and treatment not carried out because of patient's decision for unspecified reasons Diagnosis 11/30/2020 06:15:00 PM EDT [facility] [id number] Nicotine dependence, cigarettes, uncompl icated Nicotine dependence, cigarettes, uncomplicated Diagnosis 11/30/2020 06:15:00 PM EDT [facility] R519 Headache, unspecified Headache, unspecified Diagnosis [facility] Procedure and treatment not carried out due to patient leaving prior to being seen by health care provider Procedure and treatment not carried out due to patient leaving prior to being seen by health care provider Diagnosis 08/19/2020 05:11:00 PM [facility] K029 Dental caries, unspecified Dental caries, unspecified Diagnosis 04/06/2020 10:12:00 PM EDT [facility] K0889 Other specified disorders of teeth and s upporting structures Other specified disorders of teeth and supporting structures Diagnosis 04/06/2020 10:12:00 PM EDT [facility] [id number] Dental abscess Dental Abscess Problem 04/14/2021 12:00: 00 AM EDT TRAM ([facility]) [id number] Anxiety Anxiety Problem 12/13/2020 12:00:00 AM ED T [facility] ([facility]) [id number] Anxiety Anxiety Problem 12/13/2020 12:00:00 AM ED T [facility] ([facility]) [id number] Anxiety Anxiety Problem 12/13/2020 12:00:00 AM ED T [facility] ([facility]) [id number] Anxiety Anxiety Problem 12/13/2020 12:00:00 AM ED T [facility] ([facility]) [id number] Anxiety Anxiety Problem 12/13/2020 12:00:00 AM ED T [facility] ([facility]) 18348788 Anxiety Anxiety Problem 12/13/2020 12:00:00 AM ED T [facility] ([facility]) 38154369 Anxiety Anxiety Problem 12/13/2020 12:00:00 AM ED T [facility] ([facility]) 17411492 Anxiety Anxiety Problem 12/13/2020 12:00:00 AM ED T [facility] ([facility]) 45260941 Opioid dependence Opioid Dependence Problem 11/22/2020 12:00:00 AM EDT [facility] ([facility]) 13398216 Opioid dependence Opioid Dependence Problem 11/22/2020 12:00:00 AM EDT [facility] ([facility]) 43172571 Opioid dependence Opioid Dependence Problem 11/22/2020 12:00:00 AM EDT [facility] ([facility]) 87583792 Opioid dependence Opioid Dependence Problem 11/22/2020 12:00:00 AM EDT [facility] ([facility]) 74883969 Opioid dependence Opioid Dependence Problem 11/22/2020 12:00:00 AM EDT [facility] ([facility]) 46383760 Opioid dependence Opioid Dependence Problem 11/22/2020 12:00:00 AM EDT [facility] ([facility]) 93897975 Opioid dependence Opioid Dependence Problem 11/22/2020 12:[facility] [id number] Opioid dependence Opioid Dependence Problem 11/22/2020 12:00:00 AM EDT [facility] ([facility]) 30434149 Opioid dependence Opioid Dependence Problem 11/22/2020 12:00:00 AM EDT [facility] ([facility]) 75096766 Opioid dependence Opioid Dependence Problem 11/22/2020 12:00:00 AM EDT [facility] ([facility]) 68286289 Opioid dependence Opioid Dependence Problem 11/22/2020 12:00:00 AM EDT [facility]) Surgeries/Procedures No Information Results ID Date Data Source [id number] 03/14/2021 12:00:00 AM EDT [facility]) Name Value Range Interpretation Code Description Data Opal rce(s) Supporting Document(s) ID Date Data Source [id number] 03/14/2021 12:00:00 AM EDT [facility]) Name Value Range Interpretation Code Description Data Opal rce(s) Supporting Document(s) ID Date Data Source [id number] 02/14/2021 12:00:00 AM EDT [facility]) Name Value Range Interpretation Code Description Data Opal rce(s) Supporting Document(s) ID Date Data Source [id number] 02/14/2021 12:00:00 AM EDT [facility]) Name Value Range Interpretation Code Description Data Opal rce(s) Supporting Document(s) ID Date Data Source [id number] 02/14/2021 12:00:00 AM EDT [facility]) Name Value Range Interpretation Code Description Data Opal rce(s) Supporting Document(s) ID Date Data Source [id number] 01/22/2021 12:00:00 AM EDT [facility]) Name Value Range Interpretation Code Description Data Opal rce(s) Supporting Document(s) ID Date Data Source [id number] 01/22/2021 12:00:00 AM EDT [facility]) Name Value Range Interpretation Code Description Data Opal rce(s) Supporting Document(s) ID Date Data Source [id number] 01/22/2021 12:00:00 AM [facility] Name Value Range Interpretation Code Description Data Opal rce(s) Supporting Document(s) ID Date Data Source [id number] 01/22/2021 12:00:00 AM EDT [facility]) Name Value Range Interpretation Code Description Data Opal rce(s) Supporting Document(s) ID Date Data Source [id number] 01/05/2021 12:00:00 AM EDT [facility]) Name Value Range Interpretation Code Description Data Opal rce(s) Supporting Document(s) ID Date Data Source [id number] 01/05/2021 12:00:00 AM EDT [facility]) Name Value Range Interpretation Code Description Data Opal rce(s) Supporting Document(s) ID Date Data Source [id number] 01/05/2021 12:00:00 AM EDT [facility]) Name Value Range Interpretation Code Description Data Opal rce(s) Supporting Document(s) ID Date Data Source [id number] 01/05/2021 12:00:00 AM EDT [facility]) Name Value Range Interpretation Code Description Data Opal rce(s) Supporting Document(s) ID Date Data Source [id number] 01/05/2021 12:00:00 AM [facility] Name Value Range Interpretation Code Description Data Opal rce(s) Supporting Document(s) ID Date Data Source [id number] 12/22/2020 12:00:00 AM EDT [facility] Name Value Range Interpretation Code Description Data Opal rce(s) Supporting Document(s) SARS-CoV2 Rapid Antigen Negative [facility] This lab was ordered by [facility] and reported by Nathanael Estrada MD. ID Date Data Source [id number] 12/16/2020 12:00:00 AM EDT [facility] Name Value Range Interpretation Code Description Data Opal rce(s) Supporting Document(s) SARS-CoV2 Rapid Antigen Negative [facility] This lab was ordered by [facility] and reported by Nathanael Estrada MD. ID Date Data Source [id number] 12/13/2020 12:00:00 AM [facility] Name Value Range Interpretation Code Description Data Opal rce(s) Supporting Document(s) ID Date Data Source [id number] 12/13/2020 12:00:00 AM EDT [facility] Name Value Range Interpretation Code Description Data Opal rce(s) Supporting Document(s) ID Date Data Source [id number] 12/13/2020 12:00:00 AM [facility]T [facility] Name Value Range Interpretation Code Description Data Opal rce(s) Supporting Document(s) ID Date Data Source [id number] 12/13/2020 12:00:00 AM EDT [facility] Name Value Range Interpretation Code Description Data Opal rce(s) Supporting Document(s) ID Date Data Source [id number] 12/13/2020 12:00:00 AM EDT [facility]) Name Value Range Interpretation Code Description Data Opal rce(s) Supporting Document(s) ID Date Data Source [id number] 12/13/2020 12:00:00 AM EDT [facility]) Name Value Range Interpretation Code Description Data Opal rce(s) Supporting Document(s) ID Date Data Source [id number] 12/13/2020 12:00:00 AM EDT [facility]) Name Value Range Interpretation Code Description Data Opal rce(s) Supporting Document(s) ID Date Data Source [id number] 12/06/2020 12:00:00 AM EDT [facility]) Name Value Range Interpretation Code Description Data Opal rce(s) Supporting Document(s) ID Date Data Source [id number] 12/06/2020 12:00:00 AM EDT [facility]) Name Value Range Interpretation Code Description Data Opal rce(s) Supporting Document(s) ID Date Data Source [id number] 12/06/2020 12:00:00 AM EDT [facility]) Name Value Range Interpretation Code Description Data Opal rce(s) Supporting Document(s) ID Date Data Source [id number] 12/06/2020 12:00:00 AM EDT [facility]) Name Value Range Interpretation Code Description Data Opal rce(s) Supporting Document(s) ID Date Data Source [id number] 12/06/2020 12:00:00 AM EDT TRAM ([facility]) Name Value Range Interpretation Code Description Data Opal rce(s) Supporting Document(s) ID Date Data Source [id number] 12/06/2020 12:00:00 AM EDT [facility]) Name Value Range Interpretation Code Description Data Opal rce(s) Supporting Document(s) ID Date Data Source [id number] 12/06/2020 12:00:00 AM [facility] Name Value Range Interpretation Code Description Data Opal rce(s) Supporting Document(s) ID Date Data Source [id number] 12/06/2020 12:00:00 AM EDT [facility] Name Value Range Interpretation Code Description Data Opal rce(s) Supporting Document(s) ID Date Data Source [id number] 11/30/2020 06:15:00 PM EDT [facility] 1 OrderSheet [facility] Department [address] [place] [address] Phone #: ext- [phone] 11/30/2020 18:01 Patient: STEVEN MACEDO Sex: M : 1995 Age: 25yWEIGHT:81.6 kg (S) HEIGHT:68 inches (S) BMI:27.4ALLERGIES: No Known Drug AllergyCHIEF COMPLAINT: headacheDIAGNOSIS: HeadacheLAB ORDERSOrder Description Priority Entered Acknowledged InitialedCBC w Diff STAT 18:32 11/30/2020 18:33 Deyvi NETTLES; Sammie RNCMP STAT 18:32 11/30/2020 18:33 Deyvi NETTLES; Sammie ZHENGUrinalysis (Clean STAT 18:32 11/30/2020 Cancelled: Patient Refusal 19:00 TerryCatch) Javon NETTLES; Sammie ZHENGUrine Drug Screen STAT 18:32 11/30/2020 Cancelled: Patient Refusal 19:00 Deyvi NETTLES; Sammie ZHENGDIAGNOSTIC STUDY ORDERSOrder Description Priority Entered Acknowledged InitialedChest Portable 1 STAT 18:32 11/30/2020 Initialed: 18:33 Deyvi Cochran RNView Javon NETTLES; Cancelled: Other 19:50 Javon Knowles(Oxygen?(No)) THO Reason for Study: headache, dizzinessCT Head W/O Cont STAT 18:32 11/30/2020 Initialed: 18:33 Deyvi Cochran RN(Oxygen?(No)) Javon NETTLES; Cancelled: Other 19:50 Javon NETTLES Reason for Study: headache, dizzinessMEDICATION/IV/DRIP/FLUID ORDERSOrder Description Priority Entered Acknowledged InitialedAcetaminophen 1 g 18:33 11/30/2020 Cancelled: Patient Refusal 19:00 TerryPO X1 dose: 1000 Javon Cochran RNmg (NOW x1)Phenergan IVP 18:33 11/30/2020 Cancelled: Patient Refusal 19:00 Terry12.5mg X1 dose: Javon Cochran RN12.5 mg (NOW x1,HIGH ALERTMEDICATION)NS IV : Bolus 1000 18:33 11/30/2020 Cancelled: Patient Refusal 19:00 Deyvi 2 OrderSheet [facility] [address] [place] [address] Phone #: ext- [phone] 11/30/2020 18:01 Patient: STEVEN MACEDO Sex: M : 1995 Age: 25ymL, then 75 mL/hr Javon NETTLES; Sammie RN(NOW x1)GENERAL ORDERSOrder Description Priority Entered Acknowledged InitialedCardiac Monitor 18:32 11/30/2020 18:33 Deyvi(continuous) Javon NETTLES; Sammie RNBlood Pressure 18:32 11/30/2020 18:33 AnkityMonitor Javon NETTLES; Sammie RNEKG 18:32 11/30/2020 18:33 Deyvi NETTLES; Sammie RNPulse Oximetry 18:32 11/30/2020 18:33 AnkityContinuous Javon NETTLES; Sammie RN[Electronically signed by Deyvi Cochran RN (19:00 11/30/2020)][Electronically signed by Javon Knowles (19:53 11/30/2020) ][Electronically locked by Deyvi Cochran RN (19:00 11/30/2020)] Name Value Range Interpretation Code Description Data Opal rce(s) Supporting Document(s) ID Date Data Source [id number] 11/30/2020 06:15:00 PM EDT [place] [address] Medication Reconciliation Report [facility] [address] [place] [address] Phone #: ext- [phone] 11/30/2020 18:01 Patient: STEVEN MACEDO Sex: M : 1995 Age: 25yWeight: 81.6 kgHeight/Length: 68 in.BMI: 27.4ALLERGIES: No Known Drug AllergyThe patient's Home Medications are listed below:THE FOLLOWING MEDICATIONS NEED TO BE RECONCILED: Suboxone Sublingual (8-2 mg), dailyThe source(s) of the original Home Medication information:Not obtained.The following Medications were given to the patient in the Emergency Department:None.The following Medications were prescribed to the patient:None. Name Value Range Interpretation Code Description Data Opal rce(s) Supporting Document(s) ID Date Data Source [id number] 11/30/2020 06:15:00 PM EDT [facility] 1 Medication Administration Record [facility] [address] [place] [address] Phone #: ext- [phone] 18:01 Patient: STEVEN MACEDO Sex: M : 1995 Age: 25yWeight: 81.6 kgHeight/Length: 68 inBMI: 27.4ALLERGIES: No Known Drug AllergyDate/Time Medication Administered Medication Ordered Name Value Range Interpretation Code Description Data Opal rce(s) Supporting Document(s) ID Date Data Source [id number] 11/30/2020 06:15:00 PM EDT [facility] 1 General Instructions [facility] [address] [place] [address] Phone #: ext- [phone] 11/30/2020 18:01 Patient: STEVEN MACEDO Sex: M : 1995 Age: 25yHeadache (acute, non specific).INSTRUCTIONSNo strenuous activity until better. Do not work for one day.Do not smoke. No alcohol.Warnings: Further evaluation is necessary. It is very important to follow up with a healthcare provider.GENERAL WARNINGS: Return or contact your ph ysician immediately if your condition worsens orchanges unexpectedly, if not improving as expected, or if other problems arise. SPECIFICALLY, return ifyou develop fever, vomiting, numbness, weakness, difficulty thinking, visual disturbances, fainting orextreme fatigue.Follow-up:Follow up with your healthcare provider in one day even if well. Call for the next available appointment.Reason for referral: evaluation. Summary of care provided to patient via paper.AMA warnings: Time of assessment: 18:40 11/30/2020. Oriented to person, place, and time. Givesappropriate answers and rational explanation of r efusal of care. No indication for involuntary commitmentis present, signs of psychosis, auditory hallucinations, delusional thinking or suicidal ideations. No slurredspeech, tangential thinking, visual hallucinations or homicidal ideations. Speaks coherently. Abstractthinking intact.Clinical Impression: the patient has the capacity to make decisions regarding the medical care offered.Relevant issues reviewed and discussed with the patient. Aware of suspected diagnosis suggested byscreening exam (headache, dizziness, unclear etiology). The suspected diagnosis, based upon theinitiated medical screening exam, is as above and has been discussed with the patient. Acknowledgesunderstanding of the reasons for recommendations regarding medical treatment and medical tests. Therecommended medical care being refused is CT head, lab work, meds for symptoms and has beendiscussed with the patient. The risks of refusing recommended care that were disclosed are ; therisks of refusing recommended care include quadriplegia, paraplegia, permanent mental impairment, lossof limb, loss of sexual function and loss of current lifestyle. Discharge instructions were provided to thepatient.REFUSAL OF CARE STATEMENT (patient to review and sign in discharge instructions):I have read this paragraph. I understand that a doctor at this hospital wants to give me certain medicalcare. The doctor explained that care to me, and I understand what that care is. The doctor also explainedto me what could happen to me if I leave here without having that care, and I understand what he said. Iknow that I am welcome to return to this hospital at any time to receive the recommended care or any othercare that I may need at any time, regardless of my ability to pay for such care. 2 General Instructions [facility] Emergency Department [address] [place] [address] Phone #: ext- [phone] 11/30/2020 18:01 Patient: DAVINA MACEDORoxy Gupta Sex: M : 1995 Age: 25yNo strenuous activity until better. Do not work for one day.(Electronically signed by THO Be 11/30/2020 19:53) Name Value Range Interpretation Code Description Data Opal rce(s) Supporting Document(s) ID Date Data Source [id number] 11/30/2020 06:15:00 PM EDT [facility] 1 Clinical Report - Nurses [facility] Emergency Department [address] [place] [address] Phone #: ext- [phone] 11/30/2020 18:01 Patient: STEVEN MACEDO Sex: M : 1995 Age: 25yTRIAGEArrived by private vehicle. Historian: patient.Acuity: LEVEL 3.Chief Complaint: HEADACHE and DIZZINESS.This started yesterday. ( Pt states he began taking suboxone last week and stopped because he felt hewas having an allergic, he started taking it again today so he wouldn't have withdrawals and now he voicesa headache along with dizziness,).SEPSIS SCREEN: SIRS SCREEN NEGATIVE. SEPSIS SCREEN NEGATIVE. No suspected or confirmedsigns of infection present.GABBI COMA SCORE: 15- eyes open- spontaneous (4); best verbal response- oriented (5); bestmotor response- obeys commands (6). --18:09 11/30/20 Per Reid RN18:02 11/30/20. BP: 128/72. MAP: 90. HR: 74. RR: 16. O2 saturation: 96%. Temp: 98.9 F (oral). Painlevel now: 01/13. --18:09 11/30/20 Per Reid RN.Weight: 81.6 kg stated. Height/Length: 68 inches Per Patient. BMI: 27.4. --18:02 11/30/20 Per Reid RN.MedicationsSuboxone Sublingual (Film 8-2 mg), daily. --18:05 11/30/20 Per Reid RN.AllergiesNo Known Drug Allergy. --18:05 11/30/20 Per Reid RN.PROBLEMS:Narcotic Dependence. --18:06 11/30/20 Per Reid RN.ADDITIONAL SURGERIES:Bowel obstruction. --18:06 11/30/20 Per Reid RN.HistoryPAST MEDICAL HX: Immunizations: up-to-date.SOCIAL HX: Light tobacco smoker (cigarette)- less than 1/2 a pack per day. Drug use. (quit 2.5 monthsago). No alcohol use. No recent travel. No known contact with a sick individual. He was offered HIVtesting but declined and hepatitis C testing but declined. He has not traveled outside the [place]Infectious disease exposure: No infectious disease exposure. The patient was not exposed to Coronavirus. 2 Clinical Report - Nurses [facility] Emergency Department [address] [place] [address] Phone #: ext- [phone] 11/30/2020 18:01 Patient: STEVEN MACEDO Sex: M : 1995 Age: 25y SELF HARM ASSESSMENT: Self harm assessment was performed. The patient answered "no" to the question(s) "Have you recently felt down, depressed, or hopeless?", "Do you have thoughts of harming or killing yourself?", "Do you have a plan for harming or killing yourself?", "Have you recently had thoughts about harming or killing others?", "Do you have any dangerous items in your possession?", "Have you noticed less interest or pleasure in doing things?", "Are you here because you tried to hurt yourself?" and "Have you ever tried to hurt yourself before today?". ABUSE ASSESSMENT: No report of abuse. NUTRITIONAL RISK ASSESSMENT: The nutritional risk assessment revealed no deficiencies. FUNCTIONAL ASSESSMENT: Functional assessment: no impairments noted. LEARNING NEEDS ASSESSMENT: The learning needs assessment revealed no barriers. FALL RISK ASSESSMENT: Fall risk assessment completed. No risk factors identified. SKIN INTEGRITY ASSESSMENT: Skin integrity risk assessment completed. No skin integrity risk identified. --18:09 11/30/20 Per Reid RN. Interventions To treatment room. --18:09 11/30/20 Per Reid RN.PHYSICAL BIODTBNDAX53:18 11/30/20. Ambulatory to room.GENERAL / NEURO / PSYCH: Alert. Oriented X 4. Appears anxious. Speech within normal limits.HEENT: No facial asymmetry noted. Pupils equal, round and reactive to light.RESPIRATORY: Respirations not labored. Breath sounds within normal limits.CVS: Capillary refill less than 2 seconds.GI / : Abdomen soft and nontender.SKIN: Skin is warm and dry. ( neck and arms red from itching). --18:18 11/30/20 Deyvi Cochran RN.NURSING PROGRESS NOTESPatient gowned. Head of bed elevated. Reassurance given. Call light placed in reach. Bed placed inlowest position. Brakes of bed on. Patient ready for evaluation- ED physician and PA notified. --18:164 Per Reid RN.DISPOSITION / DISCHARGE ( 1830 pt refusing all testing and wants to leave P A Dimitry notified and P A in to see pt). --18:40 11/30/20 Deyvi Cochran RN 18:35 11/30/20. BP: 139/80. MAP: 99. HR: 96. RR: 16. O2 saturation: 99% on room air. Temp: 97.5 F (oral). Pain level now: 0/10. --18:40 11/30/20 Deyvi Cochran, NORM 3 Clinical Report - Nurses [facility] Emergency Department [address] [place] [address] Phone #: ext- [phone] 11/30/2020 18:01 Patient: STEVEN MACEDO Sex: M : 1995 Age: 25y 18:58 11/30/20. Departure time: 18:58 11/30/2020. The patient left the Emergency Department without completion of treatment. The patient appears to be alert, oriented x4, coherent and in no acute distress. He stated is leaving (did not want any testing done). Notified the physician of patient departure. Prior to leaving, he was advised to stay for completion of treatment and return if needed. He was informed of the risks of leaving and verbalized understanding of these risks. Patient signed form prior to leaving. He left the Emergency Department ambulatory and via private vehicle. --18:58 11/30/20 Deyvi Cochran RN.Locked/Released at 11/30/2020 19:00 by Deyvi Cochran RN Name Value Range Interpretation Code Description Data Opal rce(s) Supporting Document(s) ID Date Data Source [id number] 11/30/2020 06:15:00 PM EDT [facility] 1 Clinical Report - Physicians/Mid Levels [facility] Emergency Department [address] [place] [address] Phone #: ext- [phone] 11/30/2020 18:01 Patient: STEVEN MACEDO Sex: M : 1995 Age: 25y Time Seen: 18:11 11/30/2020. Arrived- By private vehicle. Historian- patient. Disposition decision: 18:38 11/30/2020.HISTORY OF PRESENT ILLNESS Chief Complaint: HEADACHE. dizziness. This started today. It is described as throbbing and sharp. Located in the region of the left eye and left temporal region. At its maximum, severity described as 7 / 10. When seen in the E.D., severity described as 7 / 10. Modifying factors: worsened by bright light; relieved by nothing. No preceding symptoms, blurred vision, photophobia, associated nausea or numbness. No weakness or vomiting. (Pt sates he developed headache and dizziness today after taking his prescription suboxone (quit [id number] ago), Headache described as L sided and behind L eye, increases with bright light. States he wants to make sure its not an allergic reaction, denies fever, weakness, chest pain, SOB, NV.). Similar symptoms previously. Patient has had similar symptoms once (similar episode 2 mos ago). Recent medical care: The patient was seen recently by a health care provider (sees PCM for suboxone).REVIEW OF SYSTEMSNo fever, muscle aches, sinus pressure, ear pain or sore throat. No carbon monoxide exposure, tick bite,head injury, chest pain or difficulty breathing. No cough, abdominal pain, diarrhea, pain with urination orskin rash. No enlarged lymph nodes or back pain.PAST HISTORYSee nurses notes. Problems: Narcotic Dependence. Additional Surgeries: Bowel obstruction. Medicat ions: Suboxone Sublingual (Film 8-2 mg), daily. Allergies: No Known Drug Allergy.SOCIAL HISTORYSmoker- current status unknown. Drug use: quit 2 mos ago: heroin. No alcohol use. 2 Clinical Report - Physicians/Mid Levels [facility] Emergency Department [address] [place] [address] Phone #: ext- [phone] 11/30/2020 18:01 Patient: STEVEN MACEDO Sex: M : 1995 Age: 25yADDITIONAL NOTESThe nursing notes have been reviewed with agreement regarding the chief complaint, HPI, ROS, PMH andpatient medications and allergies.PHYSICAL EXAMVital Signs: 11/30/2020 18:02 BP: 128/72. MAP: 90. HR: 74. RR: 16. O2 saturation: 96%. Temp: 98.9 F.Pain level now: 6/10. Have been reviewed as normal and appear to be correct. Blood pressure normal.Mean arterial pressure- normal. Heart rate normal. Respiratory rate normal. Temperature normal.Oxygen saturation normal.Appearance: Alert. No acute distress.Eyes: Pupils equal, round and reactive to light. Eyes normal inspection.ENT: Ears normal. Nose normal. Pharynx normal.Neck: Normal inspection. Neck supple.CVS: Normal heart rate and rhythm. Heart sounds normal. Pulses normal.Respiratory: No respiratory distress. Painless inspiration. Breath sounds normal.Abdomen: Soft and nontender. No organomegaly.Back: Normal inspection.Skin: Skin warm and dry. Normal skin color. No rash. Normal skin turgor.Extremities: Extremities exhibit normal ROM. No lower extremity edema.Neuro: Oriented X 3. Alert. Mood/affect normal. Speech no rmal. Cranial nerves normal (as tested).No cerebellar findings. No motor deficit. No sensory deficit. Reflexes normal.PROGRESS AND PROCEDURESCourse of Care: 18:38 Nov 30 2020. Pt has elected to leave the ED AMA. Pt states he "just wanted to seeif headache and dizziness was an allergic reaction to suboxone" and refuses to have further w/u donebased on symptoms (ie- CT head, labs, tx of headache), discussed at length with pt risks of leaving AMAand pt was encouraged to return to ED at earliest convenience to complete w/u and acknowledges risk ofpermanent disability/.CLINICAL IMPRESSION Headache (acute, non specific).INSTRUCTIONS No strenuous activity until better. Do not work for one day. Do not smoke. No alcohol. Warnings: Further evaluation is necessary. It is very important to follow up with a healthcare provider. GENERAL WARNINGS: Return or contact your physician immediately if your condition worsens or changes unexpectedly, if not improving as expected, or if other problems arise. SPECIFICALLY, return if you develop fever, vomiting, numbness, weakness, difficulty thinking, visual disturbances, fainting or 3 Clinical Report - Physicians/Mid Levels [facility] Emergency Department [address] [place] [address] Phone #: ext- [phone] 11/30/2020 18:01 [id number] Sex: [facility] : 1995 Age: 25y extreme fatigue. Follow-up: Follow up with your healthcare provider in one day even if well. Call for the next available appointment. Reason for referral: evaluation. Summary of care provided to patient via paper. AMA warnings: Time of assessment: 18:40 11/30/2020. Oriented to person, place, and time. Gives appropriate answers and rational explanation of refusal of care. No indication for involuntary commitment is present, signs of psychosis, auditory hallucinations, delusional thinking or suicidal ideations. No slurred s peech, tangential thinking, visual hallucinations or homicidal ideations. Speaks coherently. Abstract thinking intact. Clinical Impression: the patient has the capacity to make decisions regarding the medical care offered. Relevant issues reviewed and discussed with the patient. Aware of suspected diagnosis suggested by screening exam (headache, dizziness, unclear etiology). The suspected diagnosis, based upon the initiated medical screening exam, is as above and has been discussed with the patient. Acknowledges understanding of the reasons for recommendations regarding medical treatment and medical tests. The recommended medical care being refused is CT head, lab work, meds for symptoms and has been discussed with the patient. The risks of refusing recommended care that were disclosed are ; the risks of refusing recommended care include quadriplegia, paraplegia, permanent mental impairment, loss of limb, loss of sexual function and loss of current lifestyle. Discharge instructions were provi ded to the patient. REFUSAL OF CARE STATEMENT (patient to review and sign in discharge instructions): I have read this paragraph. I understand that a doctor at this hospital wants to give me certain medical care. The doctor explained that care to me, and I understand what that care is. The doctor also explained to me what could happen to me if I leave here without having that care, and I understand what he said. I know that I am welcome to return to this hospital at any time to receive the recommended care or any other care that I may need at any time, regardless of my ability to pay for such care.(Electronically signed by THO Be 11/30/2020 19:53) Name Value Range Interpretation Code Description Data Opal rce(s) Supporting Document(s) ID Date Data Source [id number] 11/29/2020 12:00:00 AM EDT [facility]) Name Value Range Interpretation Code Description Data Opal rce(s) Supporting Document(s) ID Date Data Source [id number] 11/29/2020 12:00:00 AM EDT [facility]) Name Value Range Interpretation Code Description Data Opal rce(s) Supporting Document(s) ID Date Data Source [id number] 11/29/2020 12:00:00 AM EDT [facility] Name Value Range Interpretation Code Description Data Opal rce(s) Supporting Document(s) ID Date Data Source [id number] 11/29/2020 12:00:00 AM EDT [facility]) Name Value Range Interpretation Code Description Data Opal rce(s) Supporting Document(s) ID Date Data Source [id number] 11/29/2020 12:00:00 AM EDT [facility] Name Value Range Interpretation Code Description Data Opal rce(s) Supporting Document(s) ID Date Data Source [id number] 11/29/2020 12:00:00 AM EDT [facility]) Name Value Range Interpretation Code Description Data Opal rce(s) Supporting Document(s) ID Date Data Source [id number] 11/29/2020 12:00:00 AM EDT [facility]) Name Value Range Interpretation Code Description Data Poal rce(s) Supporting Document(s) ID Date Data Source [id number] 11/29/2020 12:00:00 AM EDT [facility]) Name Value Range Interpretation Code Description Data Opal rce(s) Supporting Document(s) ID Date Data Source [id number] 11/29/2020 12:00:00 AM EDT [facility]) Name Value Range Interpretation Code Description Data Opal rce(s) Supporting Document(s) ID Date Data Source [id number] 11/22/2020 12:00:00 AM EDT [facility]) Name Value Range Interpretation Code Description Data Opal rce(s) Supporting Document(s) ID Date Data Source [id number] 11/22/2020 12:00:00 AM EDT [facility]) Name Value Range Interpretation Code Description Data Opal rce(s) Supporting Document(s) ID Date Data Source [id number] 11/22/2020 12:00:00 AM EDT [facility]) Name Value Range Interpretation Code Description Data Opal rce(s) Supporting Document(s) ID Date Data Source [id number] 11/22/2020 12:00:00 AM EDT [facility]) Name Value Range Interpretation Code Description Data Opal rce(s) Supporting Document(s) ID Date Data Source [id number] 11/22/2020 12:00:00 AM EDT [facility]) Name Value Range Interpretation Code Description Data Opal rce(s) Supporting Document(s) ID Date Data Source [id number] 11/22/2020 12:00:00 AM EDT [facility]) Name Value Range Interpretation Code Description Data Opal rce(s) Supporting Document(s) ID Date Data Source [id number] 11/22/2020 12:00:00 AM EDT [facility]) Name Value Range Interpretation Code Description Data Opal rce(s) Supporting Document(s) ID Date Data Source [id number] 11/22/2020 12:00:00 AM EDT [facility]) Name Value Range Interpretation Code Description Data Opal rce(s) Supporting Document(s) ID Date Data Source [id number] 11/22/2020 12:00:00 AM EDT [facility]) Name Value Range Interpretation Code Description Data Opal rce(s) Supporting Document(s) ID Date Data Source [id number] 11/22/2020 12:00:00 AM EDT [facility]) Name Value Range Interpretation Code Description Data Opal rce(s) Supporting Document(s) ID Date Data Source [id number] 08/19/2020 05:11:00 PM EST [facility] 1 Medication Reconciliation Report [facility] Emergency Department [address] [place] [address] Phone #: ext- [phone] 08/19/2020 16:48 Patient: STEVEN MACEDO Sex: M : 1995 Age: 25yWeight: 86.1 kgHeight/Length: 68 in.BMI: 28.9ALLERGIES: No Known Drug AllergyThe patient's Home Medications are listed below:THE FOLLOWING MEDICATIONS NEED TO BE RECONCILED: SEROquel Oral (100 mg), daily Zoloft Oral (100 mg), dailyThe source(s) of the original Home Medication information:Not obtained.The following Medications were given to the patient in the Emergency Department:None.The following Medications were prescribed to the patient:None. Name Value Range Interpretation Code Description Data [facility](s) Supporting Document(s) ID Date Data Source [id number] 08/19/2020 05:11:00 PM [place] [address] Medication Administration Record [facility] Emergency Department [address] [place] [address] Phone #: ext [phone] 16:48 Patient: STEVEN MACEDO Sex: M : 1995 Age: 25yWeight: 86.1 kgHeight/Length: 68 inBMI: 28.9ALLERGIES: No Known Drug AllergyDate/Time Medication Administered Medication Ordered Name Value Range Interpretation Code Description Data [facility](s) Supporting Document(s) ID Date Data Source [id number] 08/19/2020 05:11:00 PM [facility] 1 Clinical Report - Nurses [facility] Emergency Department [address] [place] [address] Phone #: ext [phone] 08/19/2020 16:48 Patient: STEVEN MACEDO Sex: M : 1995 Age: 25yTRIAGEArrived by private vehicle. Historian: patient. Accompanied by family.Acuity: LEVEL 4.Chief Complaint: LEFT LOWER TOOTHACHE.Alert. No acute distress.Onset. (2 months). ( Pt is scheduled for a tooth extraction to the L lower molar on 08/25. The pain hasbecome unbearable and he says he cant wait until then.). 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 SEPSIS SCREEN NEGATIVE. No suspected or confirmedsigns of infection present.GABBI COMA SCORE: 15- eyes open- spontaneous (4); best verbal response- oriented (5); bestmotor response- obeys commands (6). --17:05 08/19/20 Amena Alvarado R.N.16:58 08/19/20. BP: 111/64. MAP: 79. HR: 78. RR: 18. O2 saturation: 99%. Temp: 98.6 F. Pain level now:04/15. --17:05 08/19/20 Amena Alvarado R.N.Weight: 86.1 kg stated. Height/Length: 68 inches Per Patient. BMI: 28.9. --17:05 08/19/20 Amena Alvarado R.N.MedicationsZoloft Oral (Tablet 100 mg), daily. --17:08/19/20 Amena Alvarado R.N. SEROquel Oral (Tablet 100 mg), daily. --17:01 08/19/20 Amena Alvarado R.N.AllergiesNo Known Drug Allergy. --17:01 08/19/20 Amena Alvarado R.N.PROBLEMS:Bowel Obstruction.Anxiety Reaction.Depression. --18:00 08/19/20 Sherly Be following entry was modified by THO Howard, 18:00 08/19/20Anxiety Reaction. --17:01 08/19/20 Amena Alvarado R.N. 2 Clinical Report - Nurses [facility] Emergency Department [address] [place] [address] Phone #: ext- [phone] 08/19/2020 16:48 [id number] Sex[facility] : 1995 Age: 25y The following entry was modified by THO Be, 18:00 08/19/20 Depression. --17:01 08/19/20 Amena Alvarado R.N. The following entry was modified by THO Be, 18:00 08/19/20 Bowel Obstruction. --17:01 08/19/20 Amena Alvarado R.N.. ADDITIONAL SURGERIES: Bowel Surgery. Chest tube. --17:02 08/19/20 Amena Alvarado R.N. History PAST MEDICAL HX: Immunizations: up-to-date. SOCIAL HX: Light tobacco smoker- less than 1/2 a pack per day. No alcohol use or drug use. The patient was offered HIV testing but declined and hepatitis C testing but declined. The patient has not traveled outside the [place] Infectious disease exposure: No infectious disease exposure. The patient was not exposed to C-diff, MRSA, VRE, CRE or Coronavirus. SELF HARM ASSESSMENT: Self harm assessment was performed. The patient answered "no" to the question(s) "Have you recently felt down, depressed, or hopeless?", "Do you have thoughts of harming or killing yourself?", "Do you have a plan for harming or killing yourself?", "Have you recently had thoughts about harming or killing others?", "Do you have any dangerous items in your possession?", "Have you noticed less interest or pleasure in doing things?", "Are you here because you tried to hurt yourself?" and "Have you ever tried to hurt yourself before today?". ABUSE ASSESSMENT: No report of abuse. NUTRITIONAL RISK ASSESSMENT: The nutritional risk assessment revealed no deficiencies. FUNCTIONAL ASSESSMENT: Functional assessment: no impairments noted. LEARNING NEEDS ASSESSMENT: The learning needs assessment revealed no barriers. FALL RISK ASSESSMENT: Fall risk assessment completed. No risk factors identified. SKIN INTEGRITY ASSESSMENT: Skin integrity risk assessment completed. No skin integrity risk identified. --17:05 08/19/20 Amena Alvarado R.N. Interventions To waiting room. --17:05 08/19/20 Amena Alvarado R.N.PHYSICAL ASSESSMENTAmbulatory to room.GENERAL / NEURO / PSYCH: Alert. Oriented X 4. Appears in no acute distress.HEENT: Pupils equal, round and reactive to light. Pharynx within normal limits. Voice within normal 3 Clinical Report - Nurses [facility] Emergency Department [address] [place] [address] Phone #: ext- [phone] 08/19/2020 16:48 Patient: STEVEN MACEDO Sex: M : 1995 Age: 25y limits. Left lower second and third molar(s). Mucous membranes are pink. RESPIRATORY: Respirations not labored. CVS: Capillary refill less than 2 seconds. SKIN: Skin is warm and dry. Normal skin turgor. --17:30 08/19/20 Amena Alvarado R.N.NURSING PROGRESS NOTES17:59 08/19/20. BP: 116/78. MAP: 90. HR: 75. RR: 18. O2 saturation: 98%. --18:00 08/19/20 [place] [id number].DISPOSITION / DISCHARGE Departure time: 18:05 08/19/2020. --18:05 08/19/20 Danni Renner, NORM The patient left the Emergency Department without being seen by a physician and completion of treatment; patient was unaccompanied. The patient appears to be alert, oriented x4, coherent and in no acute distress. Unable to locate patient. Notified the ED physician of patient departure. The patient left the Emergency Department ambulatory. The patient eloped. --18:07 08/19/20 Danni Renner RN.Locked/Released at 08/19/2020 18:07 by Danni Renner, NORM Name Value Range Interpretation Code Description Data Opal rce(s) Supporting Document(s) ID Date Data Source [id number] 04/06/2020 10:12:00 PM EDT [facility] 1 OrderSheet [facility] Emergency Department [address] [place] [address] Phone #: ext- [phone] 04/06/2020 22:09 Patient: STEVEN MACEDO Sex: M : 1995 Age: 25yWEIGHT:86.6 kg (S) HEIGHT:68 inches (S) BMI:29.0ALLERGIES: BENADRYL: HIVESCHIEF COMPLAINT: dental painDIAGNOSIS: Dental cariesLAB ORDERSOrder Description Priority Entered Acknowledged InitialedDIAGNOSTIC STUDY ORDERSOrder Description Priority Entered Acknowledged InitialedMEDICATION/IV/DRIP/FLUID ORDERSOrder Description Priority Entered Acknowledged InitialedAugmentin PO 875 22:22 04/06/2020 22:29 mg Hadley Pollack R.N.;Toradol IM 30 mg 22:22 04/06/2020 22:29 Hadley Pollack R.N.;Lidocaine Viscous 22:31 04/06/2020 22:34 KEITH Pollack 10 mL Hadley NETTLES;GENERAL ORDERSOrder Description Priority Entered Acknowledged Initialed[Electronically signed by Brennan Pollack R.N. (22:48 04/06/2020)][Electronically signed by Hadley Hayward (06:59 04/07/2020)][ Electronically locked by Brennan Pollack R.N. (22:48 04/06/2020)] Name Value Range Interpretation Code Description Data Opal rce(s) Supporting Document(s) ID Date Data Source [id number] 04/06/2020 10:12:00 PM EDT [facility] 1 Medication Reconciliation Report [facility] Emergency Department [address] [place] [address] Phone #: ext- [phone] 04/06/2020 22:09 Patient: STEVEN MACEDO Sex: M : 1995 Age: 25yWeight: 86.6 kgHeight/Length: 68 in.BMI: 29.0ALLERGIES: BENADRYL: HIVESThe patient's Home Medications are listed below:CONTINUE TAKING THE FOLLOWING MEDICATIONS: SEROquel Oral Zoloft OralThe source(s) of the original Home Medication information:Not obtained.The following Medications were given to the patient in the Emergency Department:Toradol [IM] IM 30 mg, administered: 04/06/2020 10:29:00 PMAugmentin [PO] PO 875 mg, administered: 04/06/2020 10:29:00 PMLidocaine Viscous [PO] PO 15 mL, administered: 04/06/2020 10:34:00 PMThe following Medications were prescribed to the patient:Augmentin 875 mg-125 mg tablet Take 1 tablet twice a day as directed for 10 days -- Dispense 20tablet. Refills: 0. Substitution permitted.[employer] [facility] - [facility] [place] [phone]. .Lidocaine Viscous 2 % mucosal solution Apply 1 ml five times a day -- Dispense 100 ml. Refills: 0.Substitution permitted.[facility] [address] [place] [phone]. . -- THO Coy Name Value Range Interpretation Code Description Data Opal rce(s) Supporting Document(s) ID Date Data Source [id number] 04/06/2020 10:12:00 PM EDT [facility] 1 Medication Administration Record [facility] Emergency Department [address] [place] [address] Phone #: ext- [phone] 04/06/2020 22:09 Patient: STEVEN MACEDO Sex: M : 1995 Age: 25yWeight: 86.6 kgHeight/Length: 68 inBMI: 29ALLERGIES: BENADRYL: HIVES Date/Time Medication Administered Medication OrderedGiven AUGMENTIN [PO] (AMOXICILLIN-POT Augmentin PO 875 mg22:29 04/06/2020 CLAVULANATE)Brennan Pollack R.N. Dose: 875 mg Tablets POGiven TORADOL [IM] (KETOROLAC Toradol IM 30 mg22:04/06/2020 TROMETHAMINE)Brennan Pollack R.N. Dose: 30 mg IMGiven LIDOCAINE VISCOUS [PO] Lidocaine Viscous PO 10 mL22:34 04/06/2020 Dose: 15 mL Oral Suspension Brennan Kendrick R.N. Name Value Range Interpretation Code Description Data Opal rce(s) Supporting Document(s) ID Date Data Source [id number] 04/06/2020 10:12:00 PM EDT [facility] 1 General Instructions [facility] Emergency Department [address] [place] [address] Phone #: ext- [phone] 04/06/2020 22:09 Patient: STEVEN MACEDO Sex: M : 1995 Age: 25yDental caries (localized)INSTRUCTIONSYour Current Medications: Your current home medications have been reviewed.CONTINUE TAKING THE FOLLOWING MEDICATIONS:SEROquel Oral.Zoloft Oral.Prescription Medications:Augmentin 875 mg-125 mg tablet Take 1 tablet twice a day as directed for 10 days -- Dispense 20tablet. Refills: 0. Substitution permitted.Pharmacy - [facility] [address] [place], [place] [phone]. .Lidocaine Viscous 2 % mucosal solution Apply 1 ml five times a day -- Dispense 100 ml. Refills: 0.Substitution permitted.Pharmacy - [facility] - [address] [facility] ; [place], [place] [phone]. .Follow-up:Follow up with a specialist Dentist. Call for an appointment. Reason for referral: evaluation and treatment.Summary of care provided to patient.Understanding of the discharge instructions verbalized by patient. ADDITIONAL INFORMATIONDental Cavity 2 General Instructions [facility] Emergency Departm ent [address] [facility], [place] [address] Phone #: ext- [phone] 04/06/2020 22:09 Patient: STEVEN MACEDO Sex: Candy : 1995 Age: 25yA dental cavity is a pit or crater in the surface of a tooth. This exposes the sensitive inner layer of thetooth and causes pain. If the cavity isn't treated, it will get bigger. It may enter the pulp and cause aninfection or abscess in the bone at the root end (apex) of the tooth. An infection in the tooth is a muchmore serious problem than a cavity. If the tooth gets infected, you will need a root canal or the entiretooth taken out (extraction).The pain in your tooth may be made worse by eating sweets or drinking hot or cold beverages. It mayspread from the tooth to your ear or the area of your jaw on the same side.Home careFollow these tips when caring for yourself at home: Don't have sweets and hot and cold foods and drinks. Your tooth may be sensitive to changes in temperature. If your tooth is chipped or cracked, or if there is a large open cavity, put oil of cloves directly on the tooth to relieve pain. You can buy oil of cloves at drugstores. Some pharmacies carry an wtfx-dwp-oajzrlb "toothache kit." This contains a paste that you can put on the exposed tooth to make it less sensitive. 3 General Instructions [facility] Emergency Department [address] [place] [address] Phone #: ext- [phone] 04/06/2020 22:09 Patient: STEVEN MACEDO Sex: M : 1995 Age: 25y Put a cold pack on your jaw over the sore area to help reduce pain. You may use jale-xgj-urdaymq medicine to ease pain, unless another medicine was prescribed. If you have chronic liver or kidney disease, talk with your healthcare provider before using acetaminophen or ibuprofen. Also talk with your provider if you've had a stomach ulcer or GI bleeding. If you have signs of an infection, you will be given an antibiotic. Take it as directed.Follow-up careFollow up with your dentist, or as advised. Your pain may go away with the treatment given today. Butonly a dentist can fully look at and treat this problem to prevent further tooth damage.Call [phone] if any of these occur: Difficulty swallowing or breathing Weakness or fainting Unusual drowsiness Headache or stiff neckWhen to seek medical adviceCall your healthcare provider right away if any of these occur: Redness or swelling of the face Pain gets worse or spreads to your neck Fever of 100.4 F (38C) or higher, or as directed by your healthcare provider Pus drains from the tooth or gum [id number] [employer]. [address] [place] [address], [place] [address]. All rights reserved. This information is not intended as asubstitute for professional medical care. Always follow your healthcare professional's instructions.Dental AbscessA dental abscess is an infection of the tooth socket. It often starts with a crack or cavity in the tooth. Apocket of pus forms between the tooth and the bone. The infection causes pain and swelling of thegum, cheek, or jaw. The pain is often made worse by drinking hot or cold fluids, or biting on hardfoods. Pain may be felt in the facial sinus or in the ear. A severe infection can cause problems with 4 General Instructions [facility] Emergency Department [address] [place] [address] Phone #: ext- [phone] 04/06/2020 22:09 Patient: STEVEN MACEDO Sex: M : 1995 Age: 25yswallowing and breathing.Causes Cavities Trauma Previous dental workSymptoms Pain Swelling around the tooth or face and cheek Redness Bad breath Bad taste in the mouth FeverYou will be started on an antibiotic. But, final treatment requires draining the pus. This can be done byremoving the tooth or getting a root canal. An oral surgeon typically removes diseased teeth. Anendodontist does a root canal. This involves drilling an opening in the tooth to get to access thecanals in the root. Once these are reached, the pus can be drained. Then the canals are cleaned andshaped before filling them with a special material called malik percha. After the infection has healed, acrown is placed over the tooth.Home careThe following guidelines will help you care for your abscess at home: Don't have hot or cold foods and liquids. Your tooth may be sensitive to temperature changes. If your tooth is chipped or cracked, or if there is a large open cavity, apply oil of cloves directly to the tooth to reduce pain. Oil of cloves is sold ngmg-ose-nnlyvyw in pharmacies. Some pharmacies carry an aejj-aqv-myelopi "toothache kit." This contains oil of cloves and a paste, which can be applied over the exposed tooth to decrease sensitivity. Apply an ice pack (ice cubes in a plastic bag, wrapped in a towel) over the injured area for 10 to 20 minutes every 1 to 2 hours the first day for pain relief. Continue this 3 to 4 times a day until the pain and swelling goes away. To make an ice pack, put ice cubes in a plastic bag that seals at the top. Wrap the bag in a clean, thin towel or cloth. Never put ice or an ice pack directly on the skin. 5 General Instructions [facility] Emergency Department [address] [place] [address] Phone #: ext- [phone] 04/06/2020 22:09 Patient: STEVEN MACEDO Sex: M : 1995 Age: 25y You can take acetaminophen or ibuprofen for pain, unless you were given a different pain medicine to use. If you have chronic liver or kidney disease, have ever had a stomach ulcer or gastrointestinal bleeding, or are taking blood-thinning medicines, talk with your healthcare provider before using these medicines. An antibiotic will be prescribed. Take it as directed until completed, even if you are feeling better sooner.Follow-up careFollow up as advised with an teacher counselor, or oral surgeon. Even though your pain may improve withthe treatment given today, only a dentist, teacher counselor, or oral surgeon can provide full treatment forthis problem. If a culture was done, you will be told if the treatment needs to be changed. You can call in as directed for the results. If X-rays were taken, they will be reviewed by a specialist. You will be given the results, especially if they affect treatment.Call [phone] if any of these occur: Trouble breathing or swallowing, or wheezing Hoarse voice or trouble speaking Confusion Extreme drowsiness or trouble awakening Fainting or loss of consciousness Rapid heart rateWhen to seek medical adviceCall your healthcare provider right away if any of these occur: Swollen or red face or eyelid Pain gets worse or spreads to the neck You have a fever of 100.4F (38C) or higher, or as directed by your healthcare provider Unusual drowsiness, a headache or stiff neck, or weakness 6 General Instructions [facility] Emergency Department [address] [place] [address] Phone #: [phone]- [phone] 04/06/2020 22:09 Patient: STEVEN MACEDO Sex: M : 1995 Age: 25y Pus drains from the gum or tooth You can't open your mouth wide 1999- 2017 [employer]. [address] [place] [address], [place] [address]. All rights reserved. This information is not intended as asubstitute for professional medical care. Always follow your healthcare professional's instructions.Dental PainA crack or cavity in a tooth can cause tooth pain. This is because the crack or cavity exposes thesensitive inner area of the tooth. An infection in the gum or the root of the tooth can cause pain andswelling. The pain is often made worse when you drink hot or cold beverages. It can also be worsewhen you bite on hard foods. Pain may spread from the tooth to your ear or the area of the jaw on thesame side.Home careFollow these tips when caring for yourself at home: Don't have hot and cold foods and drinks. Your tooth may be sensitive to changes in 7 General Instructions [facility] Emergency Department [address] [place] [address] Phone #: ext- [phone] 04/06/2020 22:09 Patient: STEVEN MACEDO Sex: M : 1995 Age: 25y temperature. Use toothpaste made for sensitive teeth. [place] gently up and down instead of sideways. Brushing sideways can wear away root surfaces if they are exposed. If your tooth is chipped or cracked, or if there is a large open cavity, put oil of cloves directly on the tooth to relieve pain. You can buy oil of cloves at drugstores. Some pharmacies carry an lyfj-hdn-vpmubvc "toothache kit." This contains a paste that you can put on the exposed tooth to make it less sensitive. Put a cold pack on your jaw over the sore area to help reduce pain. You may use qrgi-cmj-fpjuaap medicine to ease pain, unless your doctor prescribed another medicine. If you have chronic liver or kidney disease, talk with your healthcare provider before u sing acetaminophen or ibuprofen. Also talk with your provider if you've had a stomach ulcer or GI bleeding. If you have signs of an infection, you will be given an antibiotic. Take it as directed.Follow-up careFollow up with your dentist, or as advised. Your pain may go away with the treatment given today. Butonly a dentist can fully look at and treat the cause of your pain. This will keep the pain from comingback.Call [phone] if any of these occur: Unusual drowsiness Headache or stiff neck Weakness or fainting Difficulty swallowing or breathingWhen to seek medical adviceCall your health care provider right away if any of these occur: Your face becomes swollen or red Pain gets worse or spreads to your neck Fever of 100.4 F (38.0 C) or higher, or as directed by your healthcare provider Pus drains from the tooth 8 General Instructions [facility] Emergency Department [address] [place] [address] Phone #: [phone] ext- [phone] 04/06/2020 22:09 Patient: STEVEN MACEDO Sex: M : 1995 Age: 25y [phone] [employer]. [address] [place] [address], [place] [address]. All rights reserved. This information is not intended as asubstitute for professional medical care. Always follow your healthcare professional's instructions. You have been given the following additional information: Dental Cavity Tooth Abscess Dental Pain(Electronically signed by THO Coy 04/07/2020 06:59) Name Value Range Interpretation Code Description Data Opal rce(s) Supporting Document(s) ID Date Data Source [id number] 04/06/2020 10:12:00 PM EDT [facility] 1 Clinical Report - Nurses [facility] Emergency Department [address] [place] [address] Phone #: [phone]- [phone] 04/06/2020 22:09 Patient: STEVEN MACEDO Sex: M : 1995 Age: 25yTRIAGEArrived by private vehicle. Historian: patient.Acuity: LEVEL 5.Chief Complaint: RIGHT UPPER TOOTHACHE.Alert. 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 (ORAJEL W/O RELIEF).SEPSIS SCREEN: SIRS Screen negative. Sepsis Screen negative. No suspected or confirmed signs ofinfection present. --22:16 04/06/20 Brennan Pollack R.N.22:10 04/06/20. BP: 140/89. MAP: 106. HR: 59. RR: 18. O2 saturation: 97%. Temp: 98.9 F. Pain levelnow: 04/15. --22:16 04/06/20 Brennan Pollack R.N.Weight: 86.6 kg stated. Height/Length: 68 inches Per Patient. BMI: 29. --22:12 04/06/20 Brennan Pollack R.N.MedicationsZoloft Oral. --22:13 04/06/20 Brennan Pollack R.N. SEROquel Oral. --22:13 04/06/20 Brennan Pollack R.N.AllergiesBENADRYL: HIVES. --22:13 04/06/20 Brennan Pollack R.N.PROBLEMS:Bowel Obstruction.Animal Bite.Anxiety Reaction.Dental Pain.GI Disease.Depression. --22:14 04/06/20 Brennan Pollack R.N.ADDITIONAL SURGERIES:Abdominal surgery.Bowel Surgery.Collapsed lung. --22:14 04/06/20 Brennan Pollack R.N.History 2 Clinical Report - Nurses [facility] Emergency Department [address] [place] [address] Phone #: [phone] ext- [phone] 04/06/2020 22:09 Patient: STEVEN MACEDO Sex: M : 1995 Age: 25y PAST MEDICAL HX: Immunizations: up-to-date. SOCIAL HX: Light tobacco smoker (cigarette)- less than 1/2 a pack per day. Alcohol use; consumes beer occasionally. He was offered HIV testing but declined. Patient education was provided. He was offered hepatitis C testing but declined. Patient education was provided. He has not traveled outside the [place] Infectious disease exposure: The patient was not exposed to chicken pox, measles, mumps, meningitis, staph, strep, mono, C-diff, MRSA, VRE, CRE, influenza, Alexi flu, H1N1 flu, Hepatitis A, B and C, Coronavirus, MERS, SARS, tuberculosis, Ebola, HIV, Typhoid or Zika. SELF HARM ASSESSMENT: Self harm assessment was performed. The patient answered "no" to the question(s) "Have you recently felt down, depressed, or hopeless?", "Do you have thoughts of harming or killing yourself?", "Do you have a plan for harming or killing yourself?", "Have you recently had thoughts about harming or killing others?", "Do you have any dangerous items in your possession?", "Have you noticed less interest or pleasure in doing things?", "Are you here because you tried to hurt yourself?" and "Have you ever tried to hurt yourself before today?". ABUSE ASSESSMENT: Abuse assessment. Abuse denied. No suspicion of abuse. NUTRITIONAL RISK ASSESSMENT: The nutritional risk assessment revealed no deficiencies. FUNCTIONAL ASSESSMENT: Functional assessment: no impairments noted. LEARNING NEEDS ASSESSMENT: The learning needs assessment revealed no barriers. FALL RISK ASSESSMENT: Fall risk assessment completed. No risk factors identified. SKIN INTEGRITY ASSESSMENT: Skin integrity risk assessment completed. No skin integrity risk identified. --22:16 04/06/20 Brennan Pollack R.N. Assessment The patient states feels the same. --22:04/06/20 Brennan Pollack R.N. Interventions Identification and allergy band on patient. Advanced care plan. Patient does not have advanced directive. --22:04/06/20 Brennan Pollack R.N.PHYSICAL ASSESSMENTAmbulatory to room.GENERAL / NEURO / PSYCH: Alert. Oriented X 4. Appears in no acute distress. Appears in pain.HEENT: Pupils equal, round and reactive to light. Pharynx within normal limits. Voice within normallimits. Dental tenderness. Extensive dental decay (right upper molar area, right upper canine area).Mucous membranes are pink.RESPIRATORY: Respirations not labored.CVS: Capillary refill less than 2 seconds.SKIN: Skin is warm and dry. Normal skin turgor. --22:19 04/06/20 Brennan Pollack R.N. 3 Clinical Report - Nurses [facility] Emergency Department [address] [place] [address] Phone #: [phone] 04/06/2020 22:09 Patient: STEVEN MACEDO Sex: M : 1995 Age: 25yNURSING PROGRESS NOTES22:29 04/06/2020 Toradol (Ketorolac Tromethamine) IM 30 mg given. Given in the left deltoid. Allergiesverified and confirmed 5 rights. Information reviewed with patient including reason for taking thismedication, signs of allergic reaction and precautions. Verbalizes understanding. --22:29 04/06/20 Brennan Pollack R.N. 22:29 04/06/2020 Augmentin (Amoxicillin-Pot Clavulanate) PO Tablets 875 mg given. Allergies verified and confirmed 5 rights. Information reviewed with patient including reason for taking this medication, signs of allergic reaction and precautions. Verbalizes understanding. --22:29 04/06/20 Brennan Pollack R.N. 22:34 04/06/2020 Lidocaine Viscous PO Oral Suspension 15 mL given. Allergies verified and confirmed 5 rights. Information reviewed with patient including reason for taking this medication, signs of allergic reaction and precautions. Verbalizes understanding. --22:34 04/06/20 Brennan Pollack R.N. Reassessment acuity: LEVEL 5. The patient reports no complaints, he is calm, resting quietly and sleeping and he has had no adverse reaction. Overall patient status is improved- he states feels better. GENERAL / NEURO / PSYCH: Alert. Oriented X 4. RESPIRATORY: No respiratory distress. Breath sounds normal. CVS: Capillary refill less than 2 seconds. SKIN: Skin is warm and dry. Two patient identifiers checked. Call light placed in reach. Side rails up x 2. Bed placed in lowest position. Brakes of bed on. --22:34 04/06/20 Brennan Pollack R.N.DISPOSITION / DISCHARGE Condition at departure: improved. No learning barriers present. Discharge instructions provided and reviewed with the patient. Reviewed warnings. Reviewed medicati on(s). Treatments reviewed. Reviewed referrals. Patient verbalized understanding. Written instructions provided in Ivorian. The patient was discharged by the physician personal banking assistant. He was discharged home. He left ambulatory and via private vehicle. Patient driving. Patient has no belongings. --22:36 04/06/20 Brennan Pollack R.N. 22:34 04/06/20. BP: 140/89. MAP: 106. HR: 62. RR: 16. O2 saturation: 97%. Temp: 98.9 F. Pain level now: 03/15. --22:36 04/06/20 Brennan Pollack R.N. Departure time: 22:48 04/06/2020. --22:48 04/06/20 Brennan Pollack R.N.Locked/Released at 04/06/2020 22:48 by Pollack, Brennan, R.N. Name Value Range Interpretation Code Description Data [facility] Supporting Document(s) ID Date Data Source [id number] 04/06/2020 10:12:00 PM EDT [facility] 1 Clinical Report - Physicians/Mid Levels [facility] Emergency Department [address] [place] [address] Phone #: ext- [phone] 04/06/2020 22:09 Patient: STEVEN MACEDO Sex: M : 1995 Age: 25y Time Seen: 22:30 04/06/2020. Arrived- By private vehicle.HISTORY OF PRESENT ILLNESS Chief Complaint: DENTAL PAIN. This started yesterday and is still present. It was abrupt in onset and has been constant. Pain described as moderate. No sore throat, mouth sores, nasal discharge or congestion or ear pain. No swollen jaw or face, jaw pain or facial pain. He has had toothache. Similar symptoms previously. Recent medical care: Not recently seen/asse ssed.REVIEW OF SYSTEMSNo fever, eye discomfort, cough, difficulty breathing or chest pain. No nausea, diarrhea, abdominal pain,difficulty with urination or headache. No fainting episodes, joint pain, skin rash, enlarged lymph nodes orvomiting.PAST HISTORYProblems:Bowel Obstruction.Animal Bite.Anxiety Reaction.Dental Pain.GI Disease.Depression. Additional Surgeries: Abdominal surgery. Bowel Surgery. Collapsed lung. Medications: SEROquel Oral. Zoloft Oral. Allergies: BENADRYL: HIVES.SOCIAL HISTORYLight tobacco smoker (cigarette)- less than 1/2 a pack per day. Alcohol use; consumes beer occasionally. 2 Clinical Report - Physicians/Mid Levels [facility] Emergency Department [address] [place] [address] Phone #: ext- [phone] 04/06/2020 22:09 [id number] Sex[facility] M : 1995 Age: 25y No drug use.PHYSICAL EXAMVital Signs: 04/06/2020 22:10 BP: 140/89. MAP: 106. HR: 59. RR: 18. O2 saturation: 97%. Temp: 98.9 F.Pain level now: 04/15. Have been reviewed. Oxygen saturation normal.Appearance: Alert. No acute distress.Head: Normal external inspection.Eyes: Pupils not equal, round and reactive to light. Conjunctivae and eyelids normal.ENT: Moderate dental decay (upper right lateral incisor, upper right canine). Dental tenderness. Earsnormal . Nose normal. Pharynx normal. Lips normal. Gums normal. No trismus present. Uvulamidline.Neck: Normal inspection. Trachea midline. No adenopathy. Thyroid normal. Neck supple.CVS: Normal heart rate.Respiratory: No respiratory distress.Abdomen: Soft.Skin: Normal skin color. No rash. Normal skin turgor.Extremities: Extremities nontender.Neuro: Oriented X 3.PROGRESS AND PROCEDURESCourse of Care: 22:34 Apr 06 2020. Evaluation after observation. ([id number] risks, benefits, optionsand pt is agreeable with dx and tx plan.). Patient counseled in person regarding the patient's stable condition, diagnosis and need for follow-up. Patient agrees with plan of care. 22:35 Apr 06 2020. Disposition: Discharged home in good and improved condition (22:35 Apr 06 2020).CLINICAL IMPRESSION Dental caries (localized)INSTRUCTIONS Your Current Medications: Your current home medications have been reviewed. CONTINUE TAKING THE FOLLOWING MEDICATIONS: SEROquel Oral. Zoloft Oral. Prescription Medications: Augmentin 875 mg-125 mg tablet Take 1 tablet twice a day as directed for 10 days -- Dispense 20 tablet. Refills: 0. Substitution permitted. 3 Clinical Report - Physicians/Mid Levels [facility] Department [address] [place] [address] Phone #: [phone] 04/06/2020 22:09 Patient: STEVEN MACEDO Sex: Cadny : 1995 Age: 25y [facility] #[id number] [facility] ; [place], [place] [id number]. . Lidocaine Viscous 2 % mucosal solution Apply 1 ml five times a day -- Dispense 100 ml. Refills: 0. Substitution permitted. [facility] #[phone] [facility] ; [place], [place] [phone]. . Follow-up: Follow up with a specialist Dentist. Call for an appointment. Reason for referral: evaluation and treatment. Summary of care provided to patient. Understanding of the discharge instructions verbalized by patient.(Electronically signed by THO Coy 04/07/2020 06:59) Name Value Range Interpretation Code Description Data Opal rce(s) Supporting Document(s) Procedure Social History No Information Vital Signs ID Date Data Source UNK Name Value Range Interpretation Code Description Data Source(s) Diastolic blood pressure 73 mm[Hg] 73 mm[Hg] ADOLPHUS ([facility]) Body height 69 [in_i] 69 [in_i] ADOLPHUS ([facility]) Body mass index (BMI) [Ratio] 29.2 kg/m2 29.2 k g/m2 TRAM ([facility]) Systolic blood pressure 115 mm[Hg] 115 mm[Hg] A THENA ([facility]) Body weight 3168 [oz_av] 3168 [oz_av] TRAM ([facility]) Body weight 3168 [oz_av] 3168 [oz_av] TRAM ([facility]) Diastolic blood pressure 73 mm[Hg] 73 mm[Hg] ADOLPHUS ([facility]) Body height 69 [in_i] 69 [in_i] ADOLPHUS ([facility]) Body mass index (BMI) [Ratio] 29.2 kg/m2 29.2 k g/m2 TRAM ([facility]) Systolic blood pressure 115 mm[Hg] 115 mm[Hg] [facility] Diastolic blood pressure 74 mm[Hg] 74 mm[Hg] TRAM ([facility]) Body height 69 [in_i] 69 [in_i] TRAM ([facility]) Body mass index (BMI) [Ratio] 28.3 kg/m2 28.3 k g/m2 TRAM ([facility]) Systolic blood pressure 117 mm[Hg] 117 mm[Hg] A THENA ([facility]) Body weight 3064 [oz_av] 3064 [oz_av] TRAM ([facility]) Diastolic blood pressure 74 mm[Hg] 74 mm[Hg] TRAM ([facility]) Body height 69 [in_i] 69 [in_i] TRAM ([facility]) Body mass index (BMI) [Ratio] 28.3 kg/m2 28.3 k g/m2 TRAM ([facility]) Systolic blood pressure 117 mm[Hg] 117 mm[Hg] A THENA ([facility]) Body weight 3064 [oz_av] 3064 [oz_av] TRAM ([facility]) Diastolic blood pressure 74 mm[Hg] 74 mm[Hg] TRAM ([facility]) Body height 69 [in_i] 69 [in_i] TRAM ([facility]) Body mass index (BMI) [Ratio] 28.3 kg/m2 28.3 k g/m2 TRAM ([facility]) Systolic blood pressure 117 mm[Hg] 117 mm[Hg] A THENA ([facility]) Body weight 3064 [oz_av] 3064 [oz_av] TRAM ([facility]) Diastolic blood pressure 63 mm[Hg] 63 mm[Hg] TRAM ([facility]) Body height 69 [in_i] 69 [in_i] TRAM ([facility]) Body mass index (BMI) [Ratio] 27.2 kg/m2 27.2 k g/m2 TRAM ([facility]) Systolic blood pressure 101 mm[Hg] 101 mm[Hg] A THENA ([facility]) Body weight 2948 [oz_av] 2948 [oz_av] TRAM ([facility]) Diastolic blood pressure 63 mm[Hg] 63 mm[Hg] TRAM ([facility]) Body height 69 [in_i] 69 [in_i] TRAM ([facility]) Body mass index (BMI) [Ratio] 27.2 kg/m2 27.2 k g/m2 TRAM ([facility]) Systolic blood pressure 101 mm[Hg] 101 mm[Hg] A THENA ([facility]) Body weight 2948 [oz_av] 2948 [oz_av] TRAM ([facility]) Diastolic blood pressure 63 mm[Hg] 63 mm[Hg] TRAM ([facility]) Body height 69 [in_i] 69 [in_i] TRAM ([facility]) Body mass index (BMI) [Ratio] 27.2 kg/m2 27.2 k g/m2 TRAM ([facility]) Systolic blood pressure 101 mm[Hg] 101 mm[Hg] A THENA ([facility]) Body weight 2948 [oz_av] 2948 [oz_av] TRAM ([facility]) Diastolic blood pressure 63 mm[Hg] 63 mm[Hg] TRAM ([facility]) Body height 69 [in_i] 69 [in_i] TRAM ([facility]) Body mass index (BMI) [Ratio] 27.2 kg/m2 27.2 k g/m2 TRAM ([facility]) Systolic blood pressure 101 mm[Hg] 101 mm[Hg] A THENA ([facility]) Body weight 2948 [oz_av] 2948 [oz_av] TRAM ([facility]) Diastolic blood pressure 69 mm[Hg] 69 mm[Hg] TRAM ([facility]) Body height 69 [in_i] 69 [in_i] TRAM ([facility]) Body mass index (BMI) [Ratio] 27.2 kg/m2 27.2 k g/m2 TRAM ([facility]) Systolic blood pressure 115 mm[Hg] 115 mm[Hg] A THENA ([facility]) Body weight 2944 [oz_av] 2944 [oz_av] TRAM ([facility]) Diastolic blood pressure 69 mm[Hg] 69 mm[Hg] TRAM ([facility]) Body height 69 [in_i] 69 [in_i] TRAM ([facility]) Body mass index (BMI) [Ratio] 27.2 kg/m2 27.2 k g/m2 TRAM ([facility]) Systolic blood pressure 115 mm[Hg] 115 mm[Hg] A THENA ([facility]) Body weight 2944 [oz_av] 2944 [oz_av] TRAM ([facility]) Diastolic blood pressure 69 mm[Hg] 69 mm[Hg] TRAM ([facility]) Body height 69 [in_i] 69 [in_i] TRAM ([facility]) Body mass index (BMI) [Ratio] 27.2 kg/m2 27.2 k g/m2 TRAM ([facility]) Systolic blood pressure 115 mm[Hg] 115 mm[Hg] A THENA ([facility]) Body weight 2944 [oz_av] 2944 [oz_av] TRAM ([facility]) Diastolic blood pressure 69 mm[Hg] 69 mm[Hg] TRAM ([facility]) Body height 69 [in_i] 69 [in_i] TRAM ([facility]) Body mass index (BMI) [Ratio] 27.2 kg/m2 27.2 k g/m2 TRAM ([facility]) Systolic blood pressure 115 mm[Hg] 115 mm[Hg] A THENA ([facility]) Body weight 2944 [oz_av] 2944 [oz_av] TRAM ([facility]) Diastolic blood pressure 69 mm[Hg] 69 mm[Hg] TRAM ([facility]) Body height 69 [in_i] 69 [in_i] TRAM ([facility]) Body mass index (BMI) [Ratio] 27.2 kg/m2 27.2 k g/m2 TRAM ([facility]) Systolic blood pressure 115 mm[Hg] 115 mm[Hg] A THENA ([facility]) Body weight 2944 [oz_av] 2944 [oz_av] TRAM ([facility]) Diastolic blood pressure 63 mm[Hg] 63 mm[Hg] RTAM ([facility]) Body height 69 [in_i] 69 [in_i] TRAM ([facility]) Body mass index (BMI) [Ratio] 27.2 kg/m2 27.2 k g/m2 TRAM ([facility]) Systolic blood pressure 107 mm[Hg] 107 mm[Hg] A THENA ([facility]) Body weight 2944 [oz_av] 2944 [oz_av] TRAM ([facility]) Diastolic blood pressure 63 mm[Hg] 63 mm[Hg] TRAM ([facility]) Body height 69 [in_i] 69 [in_i] TRAM ([facility]) Body mass index (BMI) [Ratio] 27.2 kg/m2 27.2 k g/m2 TRAM ([facility]) Systolic blood pressure 107 mm[Hg] 107 mm[Hg] A THENA ([facility]) Body weight 2944 [oz_av] 2944 [oz_av] TRAM ([facility]) Diastolic blood pressure 63 mm[Hg] 63 mm[Hg] TRAM ([facility]) Body height 69 [in_i] 69 [in_i] TRAM ([facility]) Body mass index (BMI) [Ratio] 27.2 kg/m2 27.2 k g/m2 TRAM ([facility]) Systolic blood pressure 107 mm[Hg] 107 mm[Hg] A THENA ([facility]) Body weight 2944 [oz_av] 2944 [oz_av] TRAM ([facility]) Diastolic blood pressure 63 mm[Hg] 63 mm[Hg] TRAM ([facility]) Body height 69 [in_i] 69 [in_i] TRAM ([facility]) Body mass index (BMI) [Ratio] 27.2 kg/m2 27.2 k g/m2 TRAM ([facility]) Systolic blood pressure 107 mm[Hg] 107 mm[Hg] A THENA ([facility]) Body weight 2944 [oz_av] 2944 [oz_av] TRAM ([facility]) Diastolic blood pressure 63 mm[Hg] 63 mm[Hg] TRAM ([facility]) Body height 69 [in_i] 69 [in_i] TRAM ([facility]) Body mass index (BMI) [Ratio] 27.2 kg/m2 27.2 k g/m2 TRAM ([facility]) Systolic blood pressure 107 mm[Hg] 107 mm[Hg] A THENA ([facility]) Body weight 2944 [oz_av] 2944 [oz_av] TRAM ([facility]) Diastolic blood pressure 63 mm[Hg] 63 mm[Hg] TRAM ([facility]) Body height 69 [in_i] 69 [in_i] TRAM ([facility]) Body mass index (BMI) [Ratio] 27.2 kg/m2 27.2 k g/m2 TRAM ([facility]) Systolic blood pressure 107 mm[Hg] 107 mm[Hg] A THENA ([facility]) Body weight 2944 [oz_av] 2944 [oz_av] TRAM ([facility]) Body height 69 [in_i] 69 [in_i] TRAM ([facility]) Body height 69 [in_i] 69 [in_i] TRAM ([facility]) Body height 69 [in_i] 69 [in_i] TRAM ([facility]) Body height 69 [in_i] 69 [in_i] TRAM ([facility]) Body height 69 [in_i] 69 [in_i] TRAM ([facility]) Body height 69 [in_i] 69 [in_i] TRAM ([facility]) Body height 69 [in_i] 69 [in_i] TRAM ([facility]) Diastolic blood pressure 79 mm[Hg] 79 mm[Hg] TRAM ([facility]) Body height 69 [in_i] 69 [in_i] TRAM ([facility]) Body mass index (BMI) [Ratio] 27.2 kg/m2 27.2 k g/m2 TRAM ([facility]) Systolic blood pressure 125 mm[Hg] 125 mm[Hg] A THENA ([facility]) Body weight 2944 [oz_av] 2944 [oz_av] TRAM ([facility]) Diastolic blood pressure 79 mm[Hg] 79 mm[Hg] TRAM ([facility]) Body height 69 [in_i] 69 [in_i] TRAM ([facility]) Body mass index (BMI) [Ratio] 27.2 kg/m2 27.2 k g/m2 TRAM ([facility]) Systolic blood pressure 125 mm[Hg] 125 mm[Hg] [facility] Body weight 2944 [oz_av] 2944 [oz_av] TRAM ([facility]) Diastolic blood pressure 79 mm[Hg] 79 mm[Hg] TRAM ([facility]) Body height 69 [in_i] 69 [in_i] TRAM ([facility]) Body mass index (BMI) [Ratio] 27.2 kg/m2 27.2 k g/m2 TRAM ([facility]) Systolic blood pressure 125 mm[Hg] 125 mm[Hg] A THENA ([facility]) Body weight 2944 [oz_av] 2944 [oz_av] TRAM ([facility]) Diastolic blood pressure 79 mm[Hg] 79 mm[Hg] TRAM ([facility]) Body height 69 [in_i] 69 [in_i] TRAM ([facility]) Body mass index (BMI) [Ratio] 27.2 kg/m2 27.2 k g/m2 TRAM ([facility]) Systolic blood pressure 125 mm[Hg] 125 mm[Hg] A THENA ([facility]) Body weight 2944 [oz_av] 2944 [oz_av] TRAM ([facility]) Diastolic blood pressure 79 mm[Hg] 79 mm[Hg] TRAM ([facility]) Body height 69 [in_i] 69 [in_i] TRAM ([facility]) Body mass index (BMI) [Ratio] 27.2 kg/m2 27.2 k g/m2 TRAM ([facility]) Systolic blood pressure 125 mm[Hg] 125 mm[Hg] A THENA ([facility]) Body weight 2944 [oz_av] 2944 [oz_av] TRAM ([facility]) Diastolic blood pressure 79 mm[Hg] 79 mm[Hg] TRAM ([facility]) Body height 69 [in_i] 69 [in_i] TRAM ([facility]) Body mass index (BMI) [Ratio] 27.2 kg/m2 27.2 k g/m2 TRAM ([facility]) Systolic blood pressure 125 mm[Hg] 125 mm[Hg] [facility] Body weight 2944 [oz_av] 2944 [oz_av] TRAM ([facility]) Diastolic blood pressure 79 mm[Hg] 79 mm[Hg] TRAM ([facility]) Body height 69 [in_i] 69 [in_i] TRAM ([facility]) Body mass index (BMI) [Ratio] 27.2 kg/m2 27.2 k g/m2 TRAM ([facility]) Systolic blood pressure 125 mm[Hg] 125 mm[Hg] A THENA ([facility]) Body weight 2944 [oz_av] 2944 [oz_av] TRAM ([facility]) Diastolic blood pressure 79 mm[Hg] 79 mm[Hg] TRAM ([facility]) Body height 69 [in_i] 69 [in_i] TRAM ([facility]) Body mass index (BMI) [Ratio] 27.2 kg/m2 27.2 k g/m2 TRAM ([facility]) Systolic blood pressure 125 mm[Hg] 125 mm[Hg] A THENA ([facility]) Body weight 2944 [oz_av] 2944 [oz_av] TRAM ([facility]) Diastolic blood pressure 81 mm[Hg] 81 mm[Hg] TRAM ([facility]) Body height 69 [in_i] 69 [in_i] TRAM ([facility]) Body mass index (BMI) [Ratio] 27.1 kg/m2 27.1 k g/m2 TRAM ([facility]) Systolic blood pressure 129 mm[Hg] 129 mm[Hg] A THENA ([facility]) Body weight 2934 [oz_av] 2934 [oz_av] TRAM ([facility]) Diastolic blood pressure 81 mm[Hg] 81 mm[Hg] TRAM ([facility]) Body height 69 [in_i] 69 [in_i] TRAM ([facility]) Body mass index (BMI) [Ratio] 27.1 kg/m2 27.1 k g/m2 TRAM ([facility]) Systolic blood pressure 129 mm[Hg] 129 mm[Hg] [facility] Body weight 2934 [oz_av] 2934 [oz_av] TRAM ([facility]) Body height 69 [in_i] 69 [in_i] TRAM ([facility]) Body mass index (BMI) [Ratio] 27.1 kg/m2 27.1 k g/m2 TRAM ([facility]) Systolic blood pressure 129 mm[Hg] 129 mm[Hg] A THENA ([facility]) Body weight 2934 [oz_av] 2934 [oz_av] TRAM ([facility]) Diastolic blood pressure 81 mm[Hg] 81 mm[Hg] TRAM ([facility]) Diastolic blood pressure 81 mm[Hg] 81 mm[Hg] TRAM ([facility]) Body height 69 [in_i] 69 [in_i] TRAM ([facility]) Body mass index (BMI) [Ratio] 27.1 kg/m2 27.1 k g/m2 TRAM ([facility]) Systolic blood pressure 129 mm[Hg] 129 mm[Hg] A THENA ([facility]) Body weight 2934 [oz_av] 2934 [oz_av] TRAM ([facility]) Diastolic blood pressure 81 mm[Hg] 81 mm[Hg] TRAM ([facility]) Body height 69 [in_i] 69 [in_i] TRAM ([facility]) Body mass index (BMI) [Ratio] 27.1 kg/m2 27.1 k g/m2 TARM ([facility]) Systolic blood pressure 129 mm[Hg] 129 mm[Hg] A THENA ([facility]) Body weight 2934 [oz_av] 2934 [oz_av] TRAM ([facility]) Diastolic blood pressure 81 mm[Hg] 81 mm[Hg] TRAM ([facility]) Body height 69 [in_i] 69 [in_i] TRAM ([facility]) Body mass index (BMI) [Ratio] 27.1 kg/m2 27.1 k g/m2 TRAM ([facility]) Systolic blood pressure 129 mm[Hg] 129 mm[Hg] [facility] Body weight 2934 [oz_av] 2934 [oz_av] TRAM ([facility]) Diastolic blood pressure 81 mm[Hg] 81 mm[Hg] TRAM ([facility]) Body height 69 [in_i] 69 [in_i] TRAM ([facility]) Body mass index (BMI) [Ratio] 27.1 kg/m2 27.1 k g/m2 TRAM ([facility]) Systolic blood pressure 129 mm[Hg] 129 mm[Hg] A THENA ([facility]) Body weight 2934 [oz_av] 2934 [oz_av] TRAM ([facility]) Diastolic blood pressure 81 mm[Hg] 81 mm[Hg] TRAM ([facility]) Body height 69 [in_i] 69 [in_i] TRAM ([facility]) Body mass index (BMI) [Ratio] 27.1 kg/m2 27.1 k g/m2 TRAM ([facility]) Systolic blood pressure 129 mm[Hg] 129 mm[Hg] A THENA ([facility]) Body weight 2934 [oz_av] 2934 [oz_av] TRAM ([facility]) Diastolic blood pressure 81 mm[Hg] 81 mm[Hg] TRAM ([facility]) Body height 69 [in_i] 69 [in_i] TRAM ([facility]) Body mass index (BMI) [Ratio] 27.1 kg/m2 27.1 k g/m2 TRAM ([facility]) Systolic blood pressure 129 mm[Hg] 129 mm[Hg] [facility] Body weight 2934 [oz_av] 2934 [oz_av] TRAM ([facility]) Diastolic blood pressure 83 mm[Hg] 83 mm[Hg] TRAM ([facility]) Diastolic blood pressure 83 mm[Hg] 83 mm[Hg] TRAM ([facility]) Body height 69 [in_i] 69 [in_i] TRAM ([facility]) Body mass index (BMI) [Ratio] 26.8 kg/m2 26.8 k g/m2 TRAM ([facility]) Systolic blood pressure 133 mm[Hg] 133 mm[Hg] [facility] Body weight 2904 [oz_av] 2904 [oz_av] TRAM ([facility]) Body height 69 [in_i] 69 [in_i] TRAM ([facility]) Body mass index (BMI) [Ratio] 26.8 kg/m2 26.8 k g/m2 TRAM ([facility]) Systolic blood pressure 133 mm[Hg] 133 mm[Hg] [facility] Body weight 2904 [oz_av] 2904 [oz_av] TRAM ([facility]) Diastolic blood pressure 83 mm[Hg] 83 mm[Hg] TRAM ([facility]) Body height 69 [in_i] 69 [in_i] TRAM ([facility]) Body mass index (BMI) [Ratio] 26.8 kg/m2 26.8 k g/m2 TRAM ([facility]) Systolic blood pressure 133 mm[Hg] 133 mm[Hg] [facility] Body weight 2904 [oz_av] 2904 [oz_av] TRAM ([facility]) Body weight 2904 [oz_av] 2904 [oz_av] TRAM ([facility]) Diastolic blood pressure 83 mm[Hg] 83 mm[Hg] TRAM ([facility]) Body height 69 [in_i] 69 [in_i] TRAM ([facility]) Body mass index (BMI) [Ratio] 26.8 kg/m2 26.8 k g/m2 TRAM ([facility]) Systolic blood pressure 133 mm[Hg] 133 mm[Hg] [facility] Diastolic blood pressure 83 mm[Hg] 83 mm[Hg] TRAM ([facility]) Body height 69 [in_i] 69 [in_i] TRAM ([facility]) Body mass index (BMI) [Ratio] 26.8 kg/m2 26.8 k g/m2 TRAM ([facility]) Systolic blood pressure 133 mm[Hg] 133 mm[Hg] [facility] Body weight 2904 [oz_av] 2904 [oz_av] TRAM ([facility]) Diastolic blood pressure 83 mm[Hg] 83 mm[Hg] TRAM ([facility]) Body height 69 [in_i] 69 [in_i] TRAM ([facility]) Body mass index (BMI) [Ratio] 26.8 kg/m2 26.8 k g/m2 TRAM ([facility]) Systolic blood pressure 133 mm[Hg] 133 mm[Hg] A THENA ([facility]) Body weight 2904 [oz_av] 2904 [oz_av] TRAM ([facility]) Diastolic blood pressure 83 mm[Hg] 83 mm[Hg] TRAM ([facility]) Body height 69 [in_i] 69 [in_i] TRAM ([facility]) Body mass index (BMI) [Ratio] 26.8 kg/m2 26.8 k g/m2 TRAM ([facility]) Systolic blood pressure 133 mm[Hg] 133 mm[Hg] A THENA ([facility]) Body weight 2904 [oz_av] 2904 [oz_av] TRAM ([facility]) Diastolic blood pressure 83 mm[Hg] 83 mm[Hg] TRAM ([facility]) Body height 69 [in_i] 69 [in_i] TRAM ([facility]) Body mass index (BMI) [Ratio] 26.8 kg/m2 26.8 k g/m2 TRAM ([facility]) Systolic blood pressure 133 mm[Hg] 133 mm[Hg] A THENA ([facility]) Body weight 2904 [oz_av] 2904 [oz_av] TRAM ([facility]) Diastolic blood pressure 83 mm[Hg] 83 mm[Hg] TRAM ([facility]) Body height 69 [in_i] 69 [in_i] TRAM ([facility]) Body mass index (BMI) [Ratio] 26.8 kg/m2 26.8 k g/m2 TRAM ([facility]) Systolic blood pressure 133 mm[Hg] 133 mm[Hg] A THENA ([facility]) Body weight 2904 [oz_av] 2904 [oz_av] TRAM ([facility]) Diastolic blood pressure 83 mm[Hg] 83 mm[Hg] TRAM ([facility]) Body height 69 [in_i] 69 [in_i] TRAM ([facility]) Body mass index (BMI) [Ratio] 26.8 kg/m2 26.8 k g/m2 TRAM ([facility]) Systolic blood pressure 133 mm[Hg] 133 mm[Hg] A THENA ([facility]) Body weight 2904 [oz_av] 2904 [oz_av] TRAM ([facility]) Diastolic blood pressure 65 mm[Hg] 65 mm[Hg] TRAM ([facility]) Body height 69 [in_i] 69 [in_i] TRAM ([facility]) Body mass index (BMI) [Ratio] 22.3 kg/m2 22.3 k g/m2 TRAM ([facility]) Systolic blood pressure 107 mm[Hg] 107 mm[Hg] A THENA ([facility]) Body weight 2416 [oz_av] 2416 [oz_av] TARM ([facility]) Diastolic blood pressure 65 mm[Hg] 65 mm[Hg] TRAM ([facility]) Body height 69 [in_i] 69 [in_i] TRAM ([facility]) Body mass index (BMI) [Ratio] 22.3 kg/m2 22.3 k g/m2 TRAM ([facility]) Systolic blood pressure 107 mm[Hg] 107 mm[Hg] [facility] Body weight 2416 [oz_av] 2416 [oz_av] TRAM ([facility]) Systolic blood pressure 107 mm[Hg] 107 mm[Hg] A THENA ([facility]) Diastolic blood pressure 65 mm[Hg] 65 mm[Hg] TRAM ([facility]) Body height 69 [in_i] 69 [in_i] TRAM ([facility]) Body mass index (BMI) [Ratio] 22.3 kg/m2 22.3 k g/m2 TRAM ([facility]) Body weight 2416 [oz_av] 2416 [oz_av] [facility] [facility] Diastolic blood pressure 65 mm[Hg] 65 mm[Hg] TRAM ([facility]) Body height 69 [in_i] 69 [in_i] TRAM ([facility]) Body mass index (BMI) [Ratio] 22.3 kg/m2 22.3 k g/m2 TRAM ([facility]) Systolic blood pressure 107 mm[Hg] 107 mm[Hg] A THENA ([facility]) Body weight 2416 [oz_av] 2416 [oz_av] TRAM ([facility]) Diastolic blood pressure 65 mm[Hg] 65 mm[Hg] TRAM ([facility]) Body height 69 [in_i] 69 [in_i] TRAM ([facility]) Body mass index (BMI) [Ratio] 22.3 kg/m2 22.3 k g/m2 TRAM ([facility]) Systolic blood pressure 107 mm[Hg] 107 mm[Hg] A THENA ([facility]) Body weight 2416 [oz_av] 2416 [oz_av] TRAM ([facility]) Body height 69 [in_i] 69 [in_i] TRAM ([facility]) Diastolic blood pressure 65 mm[Hg] 65 mm[Hg] TRAM ([facility]) Body mass index (BMI) [Ratio] 22.3 kg/m2 22.3 k g/m2 TRAM ([facility]) Systolic blood pressure 107 mm[Hg] 107 mm[Hg] A THENA ([facility]) Body weight 2416 [oz_av] 2416 [oz_av] TRAM ([facility]) Diastolic blood pressure 65 mm[Hg] 65 mm[Hg] TRAM ([facility]) Body height 69 [in_i] 69 [in_i] TRAM ([facility]) Body mass index (BMI) [Ratio] 22.3 kg/m2 22.3 k g/m2 TRAM ([facility]) Systolic blood pressure 107 mm[Hg] 107 mm[Hg] A THENA ([facility]) Body weight 2416 [oz_av] 2416 [oz_av] TRAM ([facility]) Diastolic blood pressure 65 mm[Hg] 65 mm[Hg] TRAM ([facility]) Body height 69 [in_i] 69 [in_i] TRAM ([facility]) Body mass index (BMI) [Ratio] 22.3 kg/m2 22.3 k g/m2 TRAM ([facility]) Systolic blood pressure 107 mm[Hg] 107 mm[Hg] A THENA ([facility]) Body weight 2416 [oz_av] 2416 [oz_av] TRAM ([facility]) Body weight 2416 [oz_av] 2416 [oz_av] TRAM ([facility]) Diastolic blood pressure 65 mm[Hg] 65 mm[Hg] TRAM ([facility]) Body height 69 [in_i] 69 [in_i] TRAM ([facility]) Body mass index (BMI) [Ratio] 22.3 kg/m2 22.3 k g/m2 TRAM ([facility]) Systolic blood pressure 107 mm[Hg] 107 mm[Hg] A THENA ([facility]) Diastolic blood pressure 65 mm[Hg] 65 mm[Hg] TRAM ([facility]) Body height 69 [in_i] 69 [in_i] TRAM ([facility]) Body mass index (BMI) [Ratio] 22.3 kg/m2 22.3 k g/m2 TRAM ([facility]) Systolic blood pressure 107 mm[Hg] 107 mm[Hg] A THENA ([facility]) Body weight 2416 [oz_av] 2416 [oz_av] TRAM ([facility]) Diastolic blood pressure 65 mm[Hg] 65 mm[Hg] TRAM ([facility]) Body height 69 [in_i] 69 [in_i] TRAM ([facility]) Body mass index (BMI) [Ratio] 22.3 kg/m2 22.3 k g/m2 TRAM ([facility]) Systolic blood pressure 107 mm[Hg] 107 mm[Hg] A THENA ([facility]) Body weight 2416 [oz_av] 2416 [oz_av] TRAM ([facility]) Patient Treatment Plan of Care Planned Activity Planned Date Details Description Data Source (s) quetiapine 200 MG Oral Tablet TRAM ([facility]) Buprenorphine 8 MG Sublingual Tablet TRAM ([facility]) quetiapine 200 MG Oral Tablet TRAM ([facility]) Buprenorphine 8 MG Sublingual Tablet TRAM ([facility]) quetiapine 200 MG Oral Tablet TRAM ([facility]) Buprenorphine 8 MG Sublingual Tablet TRAM ([facility]) quetiapine 200 MG Oral Tablet TRAM ([facility]) Buprenorphine 8 MG Sublingual Tablet TRAM ([facility]) quetiapine 200 MG Oral Tablet TRAM ([facility]) Buprenorphine 8 MG Sublingual Tablet TRAM ([facility]) quetiapine 200 MG Oral Tablet TRAM ([facility]) Buprenorphine 8 MG Sublingual Tablet TRAM ([facility]) quetiapine 200 MG Oral Tablet TRAM ([facility]) Buprenorphine 8 MG Sublingual Tablet TRAM ([facility]) quetiapine 200 MG Oral Tablet TRAM ([facility]) Buprenorphine 8 MG Sublingual Tablet TRAM ([facility]) Buprenorphine 8 MG Sublingual Tablet TRAM ([facility]) Buprenorphine 8 MG Sublingual Tablet TRAM ([facility])
[2021-05-30] MEDS ORDERED: IBUP80TA PO (13:37)
[2021-05-30] MEDS ORDERED: ZOLO100T (13:37)
[2021-05-30] MEDS ORDERED: SUBO8MIS (13:37)
--- OUTSIDE RECORDS SUMMARY | 2021-05-30 16:08 | CCD ---
Author Author [facility] Organization [facility] Address Unknown Phone Unavailable Care Team Providers Care Production Control Expert Name Role Phone Nicki Will MD Unavailable Unavailable Nicki Will MD Unavailable Unavailable Nciki Will MD Unavailable Unavailable Nicki Will MD [...] Unavailable Unavailable Nicki Will MD Unavailable Unavailable Nikci Will MD Unavailable Unavailable Nicki Will MD [...] is protected by Article 27-F of the [facility] Public Health law. If you continue you may have access to information: Regarding HIV / AIDS; Provided by facilities licensed or operated by the [facility] Office of Mental Health; or Provided by the [facility] Office for People With Developmental Disabilities. If such information is present, then the following [facility] mandated warning applies: This information has been [...] law may result in a fine or alf sentence or both. A general authorization for the release of medical or other information is NOT sufficient authorization for further disc losure. Allergies and Adverse Reactions Type Description Substance Reaction Status Data Source(s ) Propensity to adverse reactions BENADRYL BENADRYL [facility] Propensity to adverse reactions VICODIN VICODIN [facility] Allergy to substance Allergy to substance Allergy to substance TRAM ([facility]) Encounters Encounter Providers Location Date Indications Data Source(s ) Mark Will MD: [address] [place] [address], Ph. Attender: Mark Will MD [facility] Medical 05/13/2021 12:00:00 AM EDT TRAM ([facility]) Mark Will MD: [address] [place] [address], Ph. Attender: Mark Will MD [facility] Medical 04/12/2021 12:00:00 AM EDT TRAM ([facility]) Mark Will MD: [address] [place] [address], Ph. Attender: Mark Will MD [facility] Medical 04/12/2021 12:00:00 AM EDT TRAM ([facility]) Mark Will MD: [address] [place] [address] 504, Ph. Attender: Mark Will MD [facility] Medical 03/14/2021 12:00:00 AM EDT TRAM ([facility]) Mark Will MD: [address] [place] [address]2 504, Ph. Attender: Mark Will MD [facility] Medical 03/14/2021 12:00:00 AM EDT TRAM ([facility]) Mark Will MD: [address] [place] [address]1 504, Ph. Attender: Mark Will MD [facility] Medical 03/14/2021 12:00:00 AM EDT TRAM ([facility]) Mark Will MD: [address] [place] [address], Ph. Attender: Mark Will MD [facility] Medical 02/14/2021 12:00:00 AM EDT TRAM ([facility]) Mark Will MD: [address] [place] [address], Ph. Attender: Mark Will MD [facility] Medical 02/14/2021 12:00:00 AM EDT TRAM ([facility]) Mark Will MD: [address] [place] [address], Ph. Attender: Mark Will MD [facility] Medical 02/14/2021 12:00:00 AM EDT TRAM ([facility]) Mark Will MD: [address] [place] [address], Ph. Attender: Mark Will MD [facility] Medical 02/14/2021 12:00:00 AM EDT TRAM ([facility]) Mark Will MD: [address] [place] [address], Ph. Attender: Mark Will MD [facility] Medical 01/18/2021 12:00:00 AM EDT TRAM ([facility]) Mark Will MD: [address] [place] [address], Ph. Attender: Mark Will MD [facility] Medical 01/18/2021 12:00:00 AM EDT TRAM ([facility]) Mark Will MD: [address] [place] [address], Ph. Attender: Mark Will MD [facility] Medical 01/18/2021 12:00:00 AM EDT TRAM ([facility]) Mark Will MD: [address] [place] [address], Ph. Attender: Mark Will MD [facility] Medical 01/18/2021 12:00:00 AM EDT TRAM ([facility]) Mark Will MD: [address] [place] [address], Ph. Attender: Mark Will MD [facility] Medical 01/18/2021 12:00:00 AM EDT TRAM ([facility]) Mark Will MD: [address] [place] [address], Ph. Attender: Mark Will MD [facility] Medical 01/05/2021 12:00:00 AM EDT TRAM ([facility]) Mark Will MD: [address] [place] [address], Ph. Attender: Mark Will MD [facility] Medical 01/05/2021 12:00:00 AM EDT TRAM ([facility]) Mark Will MD: [address] [place] [address], Ph. Attender: Mark Will MD [facility] Medical 01/05/2021 12:00:00 AM EDT TRAM ([facility]) Mark Will MD: [address] [place] [address], Ph. Attender: Mark Will MD [facility] Medical 01/05/2021 12:00:00 AM EDT TRAM ([facility]) Mark Will MD: [address] [place] [address], Ph. Attender: Mark Will MD [facility] Medical 01/05/2021 12:00:00 AM EDT TRAM ([facility]) Mark Will MD: [address] [place] [address], Ph. Attender: Mark Will MD [facility] Medical 01/05/2021 12:00:00 AM EDT TRAM ([facility]) Mark Will MD: [address] [place] [address], Ph. Attender: Mark Will MD [facility] Medical 12/20/2020 12:00:00 AM EDT TRAM ([facility]) Mark Will MD: [address] [place] [address], Ph. Attender: Mark Will MD [facility] Medical 12/20/2020 12:00:00 AM EDT TRAM ([facility]) Mark Will MD: [address] [place] [address], Ph. Attender: Mark Will MD [facility] Medical 12/20/2020 12:00:00 AM EDT TRAM ([facility]) Mark Will MD: [address] [place] [address], Ph. Attender: Mark Will MD [facility] Medical 12/20/2020 12:00:00 AM EDT TRAM ([facility]) Mark Will MD: [address] [place] [address], Ph. Attender: Mark Will MD [facility] Medical 12/20/2020 12:00:00 AM EDT TRAM ([facility]) Mark Will MD: [address] [place] [address], Ph. Attender: Mark Will MD [facility] Medical 12/20/2020 12:00:00 AM EDT TRAM ([facility]) Mark Will MD: [address] [place] [address], Ph. Attender: Mark Will MD [facility] Medical 12/20/2020 12:00:00 AM EDT TRAM ([facility]) Mark Will MD: [address] [place] [address], Ph. Attender: Mark Will MD [facility] Medical 12/13/2020 12:00:00 AM EDT TRAM ([facility]) Mark Will MD: [address] [place] [address], Ph. Attender: Mark Will MD [facility] Medical 12/13/2020 12:00:00 AM EDT TRAM ([facility]) Mark Will MD: [address] [place] [address], Ph. Attender: Mark Will MD [facility] Medical 12/13/2020 12:00:00 AM EDT TRAM ([facility]) Mark Will MD: [address] [place] [address], Ph. Attender: Mark Will MD [facility] Medical 12/13/2020 12:00:00 AM EDT TRAM ([facility]) Mark Will MD: [address] [place] [address], Ph. Attender: Mark Will MD [facility] Medical 12/13/2020 12:00:00 AM EDT TRAM ([facility]) Mark Will MD: [address] [place] [address], Ph. Attender: Mark Will MD [facility] Medical 12/13/2020 12:00:00 AM EDT TRAM ([facility]) Mark Will MD: [address] [place] [address], Ph. Attender: Mark Will MD [facility] Medical 12/13/2020 12:00:00 AM EDT TRAM ([facility]) Mark Will MD: [address] [place] [address], Ph. Attender: Mark Will MD [facility] Medical 12/13/2020 12:00:00 AM EDT TRAM ([facility]) Mark Will MD: [address] [place] [address], Ph. Attender: Mark Will MD [facility] Medical 12/06/2020 12:00:00 AM EDT TRAM ([facility]) Mark Will MD: [address] [place] [address], Ph. Attender: Mark Will MD [facility] Medical 12/06/2020 12:00:00 AM EDT TRAM ([facility]) Mark Will MD: [address] [place] [address], Ph. Attender: Mark Will MD [facility] Medical 12/06/2020 12:00:00 AM EDT TRAM ([facility]) Mark Will MD: [address] [place] [address], Ph. Attender: Mark Will MD [facility] Medical 12/06/2020 12:00:00 AM EDT TRAM ([facility]) Mark Will MD: [address] [place] [address], Ph. Attender: Mark Will MD [facility] Medical 12/06/2020 12:00:00 AM EDT TRAM ([facility]) Mark Will MD: [address] [place] [address], Ph. Attender: Mark Will MD [facility] Medical 12/06/2020 12:00:00 AM EDT TRAM ([facility]) Mark Will MD: [address] [place] [address], Ph. Attender: Mark Will MD [facility] Medical 12/06/2020 12:00:00 AM EDT LAIE ([facility]) Mark Will MD: [address] [place] [address], Ph. Attender: Mark Will MD [facility] Medical 12/06/2020 12:00:00 AM EDT TRAM ([facility]) Mark Will MD: [address] [place] [address], Ph. Attender: Mark Will MD [facility] Medical 12/06/2020 12:00:00 AM EDT LAIE ([facility]) Emergency Attender: Cristi Ashford MDConsultant: PCP NO 11/30/2020 06:15:00 PM EDT - 11/30/2020 06:58:00 PM EDT [facility] Patient discharged. Mark Will MD: [address] [place] [address], Ph. Attender: Mark Will MD [facility] Medical 11/29/2020 12:00:00 AM EDT TRAM ([facility]) Mark Will MD: [address] [place] [address], Ph. Attender: Mark Will MD [facility] Medical 11/29/2020 12:00:00 AM EDT TRAM ([facility]) Mark Will MD: [address] [place] [address], Ph. Attender: Mark Will MD [facility] Medical 11/29/2020 12:00:00 AM EDT TRAM ([facility]) Mark Will MD: [address] [place] [address], Ph. Attender: Mark Will MD [facility] Medical 11/29/2020 12:00:00 AM EDT TRAM ([facility]) Mark Will MD: [address] [place] [address], Ph. Attender: Mark Will MD [facility] Medical 11/29/2020 12:00:00 AM EDT TRAM ([facility]) Mark Will MD: [address] [place] [address], Ph. Attender: Mark Will MD [facility] Medical 11/29/2020 12:00:00 AM EDT TRAM ([facility]) Mark Will MD: [address] [place] [address], Ph. Attender: Mark Will MD [facility] Medical 11/29/2020 12:00:00 AM EDT TRAM ([facility]) Mark Will MD: [address] [place] [address], Ph. Attender: Mark Will MD [facility] Medical 11/29/2020 12:00:00 AM EDT TRAM ([facility]) Mark Will MD: [address] [place] [address], Ph. Attender: Mark Will MD [facility] Medical 11/29/2020 12:00:00 AM EDT TRAM ([facility]) Mark Will MD: [address] [place] [address], Ph. Attender: Mark Will MD [facility] Medical 11/29/2020 12:00:00 AM EDT TRAM ([facility]) Mark Will MD: [address] [place] [address], Ph. Attender: Mark Will MD [facility] Medical 11/22/2020 12:00:00 AM EDT TRAM ([facility]) Mark Will MD: [address] [place] [address], Ph. Attender: Mark Will MD [facility] Medical 11/22/2020 12:00:00 AM EDT TRAM ([facility]) Mark Will MD: [address] [place] [address], Ph. Attender: Mark Will MD [facility] Medical 11/22/2020 12:00:00 AM EDT TRAM ([facility]) Mark Will MD: [address] [place] [address], Ph. Attender: Mark Will MD [facility] Medical 11/22/2020 12:00:00 AM EDT TRAM ([facility]) Mark Will MD: [address] [place] [address], Ph. Attender: Mark Will MD [facility] Medical 11/22/2020 12:00:00 AM EDT TRAM ([facility]) Mark Will MD: [address] [place] [address], Ph. Attender: Mark Will MD [facility] Medical 11/22/2020 12:00:00 AM EDT TRAM ([facility]) Mark Will MD: [address] [place] [address], Ph. Attender: Mark Will MD [facility] Medical 11/22/2020 12:00:00 AM EDT TRAM ([facility]) Mark Will MD: [address] [place] [address] 504, Ph. Attender: Mark Will MD [facility] Medical 11/22/2020 12:00:00 AM EDT TRAM ([facility]) Mark Will MD: [address] [place] [address] 504, Ph. Attender: Mark Will MD [facility] Medical 11/22/2020 12:00:00 AM EDT TRAM ([facility]) Mark Will MD: [address] [place] [address], Ph. Attender: Mark Will MD [facility] Medical 11/22/2020 12:00:00 AM EDT TRAM ([facility]) Mark Will MD: [address] [place] [address], Ph. Attender: Mark Will MD [facility] Medical 11/22/2020 12:00:00 AM EDT TRAM ([facility]) Mark Will MD: [address] [place] [address] 504, Ph. Attender: Mark Will MD [facility] Medical 10/20/2020 12:00:00 AM EDT TRAM ([facility]) Mark Will MD: [address] [place] [address], Ph. Attender: Mark Will MD [facility] Medical 10/20/2020 12:00:00 AM EDT TRAM ([facility]) Mark Will MD: [address] [place] [address], Ph. Attender: Mark Will MD [facility] Medical 10/20/2020 12:00:00 AM EDT TRAM ([facility]) Mark Will MD: [address] [place] [address], Ph. Attender: Mark Will MD [facility] Medical 10/20/2020 12:00:00 AM EDT TRAM ([facility]) Mark Will MD: [address] [place] [address], Ph. Attender: Mark Will MD [facility] Medical 10/20/2020 12:00:00 AM EDT TRAM ([facility]) Mark Will MD: [address] [place] [address], Ph. Attender: Mark Will MD [facility] Medical 10/20/2020 12:00:00 AM EDT TRAM ([facility]) Mark Will MD: [address] [place] [address], Ph. Attender: Mark Will MD [facility] Medical 10/20/2020 12:00:00 AM EDT TRAM ([facility]) Mark Will MD: [address] [place] [address], Ph. Attender: Mark Will MD [facility] Medical 10/20/2020 12:00:00 AM EDT TRAM ([facility]) Mark Will MD: [address] [place] [address] 504, Ph. Attender: Mark Will MD [facility] Medical 10/20/2020 12:00:00 AM EDT LAIE ([facility]) Mark Will MD: [address] [place] [address] 504, Ph. Attender: Mark Will MD [facility] Medical 10/20/2020 12:00:00 AM EDT LAIE ([facility]) Mark Will MD: [address] [place] [address] 504, Ph. Attender: Mark Will MD [facility] Medical 10/20/2020 12:00:00 AM EDT LAIE ([facility]) Mark Will MD: [address] [place] [address] 504, Ph. Attender: Mark Will MD [facility] Medical 10/20/2020 12:00:00 AM EDT LAIE ([facility]) Emergency Attender: Cristi Ashford MDConsultant: PCP NO 08/19/2020 05:11:00 PM EST - 08/19/2020 06:05:00 PM EST [facility] Patient discharged. Unknown [address] [facility] [address] 08/09/2020 12:00:00 AM EST eCW1 ([facility]) Emergency Attender: Hadley Hayward PAConsultant: PCP NO 04/06/2020 10:12:00 PM EDT - 04/06/2020 10:48:00 PM EDT [facility] Patient discharged. Medications Medication Brand Name [...] BY MOUTH EVERY 8 HOURS SOLD: 08/16/2020 [facility] 2 % 04/07/2020 12:00:00 AM EDT solution 100 APPLY 1ML BY MOUTH 5 TIMES A DAY APPLY 1ML BY MOUTH 5 TIMES A DAY SOLD: 04/07/2020 [facility] 875-125 mg 04/07/2020 12:00:00 AM EDT tablet 20 TAKE ONE TABLET BY MOUTH TWICE A DAY DIRECTED TAKE ONE TABLET BY MOUTH TWICE A DAY DIRECTED SOLD: 04/07/2020 [facility] Buprenorphine 8 MG Sublingual Tablet bup renorphine HCl 8 mg sublingual tablet One once daily. 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 buprenorphine HCl 8 mg sublingual tablet One once daily. 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 completed buprenorphine 8 MG Sublin gual Tablet LAIE ([facility]) quetiapine 200 MG Oral Tablet quetiapine 200 mg tablet TAKE ONE TABLET BY MOUTH AT BEDTIME quetiapine 200 mg tablet TAKE ONE TABLET BY MOUTH AT BEDTIME completed quetiapine 200 MG Oral Ta blet TRAM ([facility]) Buprenorphine 8 MG Sublingual Tablet bup renorphine HCl 8 mg sublingual tablet One once daily. 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 buprenorphine HCl 8 mg sublingual tablet One once daily. 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 completed buprenorphine 8 MG Sublin gual Tablet LAIE ([facility]) Buprenorphine 8 MG Sublingual Tablet bup renorphine HCl 8 mg sublingual tablet One once daily. 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 buprenorphine HCl 8 mg sublingual tablet One once daily. 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 completed buprenorphine 8 MG Sublin gual Tablet LAIE ([facility]) quetiapine 200 MG Oral Tablet quetiapine 200 mg tablet TAKE ONE TABLET BY MOUTH AT BEDTIME quetiapine 200 mg tablet TAKE ONE TABLET BY MOUTH AT BEDTIME completed quetiapine 200 MG Oral Ta blet TRAM ([facility]) Buprenorphine 8 MG Sublingual Tablet bup renorphine HCl 8 mg sublingual tablet One once daily. 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 buprenorphine HCl 8 mg sublingual tablet One once daily. 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 completed buprenorphine 8 MG Sublin gual Tablet TRAM ([facility]) Buprenorphine 8 MG Sublingual Tablet bup renorphine HCl 8 mg sublingual tablet One once daily. 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 buprenorphine HCl 8 mg sublingual tablet One once daily. 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 completed buprenorphine 8 MG Sublin gual Tablet TRAM ([facility]) Buprenorphine 8 MG Sublingual Tablet bup renorphine HCl 8 mg sublingual tablet One once daily. 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 buprenorphine HCl 8 mg sublingual tablet One once daily. 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 completed buprenorphine 8 MG Sublin gual Tablet TRAM ([facility]) quetiapine 200 MG Oral Tablet quetiapine 200 mg tablet TAKE ONE TABLET BY MOUTH AT BEDTIME quetiapine 200 mg tablet TAKE ONE TABLET BY MOUTH AT BEDTIME completed quetiapine 200 MG Oral Ta blet TRAM ([facility]) Buprenorphine 8 MG Sublingual Tablet bup renorphine HCl 8 mg sublingual tablet One once daily. 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 buprenorphine HCl 8 mg sublingual tablet One once daily. 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 completed buprenorphine 8 MG Sublin gual Tablet LAIE ([facility]) quetiapine 200 MG Oral Tablet quetiapine 200 mg tablet TAKE ONE TABLET BY MOUTH AT BEDTIME quetiapine 200 mg tablet TAKE ONE TABLET BY MOUTH AT BEDTIME completed quetiapine 200 MG Oral Ta blet TRAM ([facility]) quetiapine 200 MG Oral Tablet quetiapine 200 mg tablet TAKE ONE TABLET BY MOUTH AT BEDTIME quetiapine 200 mg tablet TAKE ONE TABLET BY MOUTH AT BEDTIME completed quetiapine 200 MG Oral Ta blet TRAM ([facility]) Buprenorphine 8 MG Sublingual Tablet bup renorphine HCl 8 mg sublingual tablet One once daily. 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 buprenorphine HCl 8 mg sublingual tablet One once daily. 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 completed buprenorphine 8 MG Sublin gual Tablet TRAM ([facility]) quetiapine 200 MG Oral Tablet quetiapine 200 mg tablet TAKE ONE TABLET BY MOUTH AT BEDTIME quetiapine 200 mg tablet TAKE ONE TABLET BY MOUTH AT BEDTIME completed quetiapine 200 MG Oral Ta blet TRAM ([facility]) quetiapine 200 MG Oral Tablet quetiapine 200 mg tablet TAKE ONE TABLET BY MOUTH AT BEDTIME quetiapine 200 mg tablet TAKE ONE TABLET BY MOUTH AT BEDTIME completed quetiapine 200 MG Oral Ta blet TRAM ([facility]) Buprenorphine 8 MG Sublingual Tablet bup renorphine HCl 8 mg sublingual tablet One once daily. 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 buprenorphine HCl 8 mg sublingual tablet One once daily. 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 completed buprenorphine 8 MG Sublin gual Tablet TRAM ([facility]) Buprenorphine 8 MG Sublingual Tablet bup renorphine HCl 8 mg sublingual tablet One once daily. 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 buprenorphine HCl 8 mg sublingual tablet One once daily. 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 completed buprenorphine 8 MG Sublin gual Tablet LAIE ([facility]) quetiapine 200 MG Oral Tablet quetiapine 200 mg tablet TAKE ONE TABLET BY MOUTH AT BEDTIME quetiapine 200 mg tablet TAKE ONE TABLET BY MOUTH AT BEDTIME completed quetiapine 200 MG Oral Ta blet TRAM ([facility]) Insurance Providers Payer name Policy type / Coverage type Policy ID Covered republican ID Covered republican's relationship to wilson Policy Wilson Plan Information BCBS ISIDRA ALBERTO [facility] 302/307 [id number] MO2 [id number] MEDICAID M [id number] Self [id number] BLUE CROSS BLUE SHIELD -O/P [id number] 19 [id number] BCBS [facility] 301/801 [id number] SP [id number] BLUE CROSS BLUE SHIELD -O/P [id number] 19 [id number] BLUE CROSS BLUE SHIELD -O/P [id number] 19 [id number] SELF-PAY UNAVAILABLE S UNAVAILA BLE ANSI-Not a Secondary Insurance [id number] BLUE CROSS BLUE SHIELD -O/P [id number] 19 [id number] J LUIS [id number] SP [id number] BCBS OF [facility] 301/801 [id number] SP [id number] BCBS OF [facility] 301/801 [id number] MO2 [id number] [employer]CE[employer] BCBS B [id number] S [id number] BLUE CROSS BLUE SHIELD -CLINIC [id number] BLUE CROSS BLUE SHIELD -I/P [id number] 19 [id number] BLUE CROSS BLUE SHIELD -O/P [id number] 19 [id number] BCBS OF [facility] 301/801 [id number] MO2 [id number] SELF PAY UNAVAILABLE UNAVAILA BLE EXCELLUS BCBS B [id number] S Y [id number] [facility] [id number] 18 [id number] Problems, Conditions, and Diagnoses Code Display Name Description Problem Type Effective Dates Data Source(s) Z5320 Procedure and treatment not carried out because of patient's decision for unspecified reasons Procedure and treatment not carried out because of patient's decision for unspecified reasons Diagnosis 11/30/2020 06:15:00 PM EDT [facility] D72255 Nicotine dependence, cigarettes, uncompl icated Nicotine dependence, cigarettes, uncomplicated Diagnosis 11/30/2020 06:15:00 PM EDT [facility] R519 Headache, unspecified Headache, unspecified Diagnosis [facility] Procedure and treatment not carried out due to patient leaving prior to being seen by health care provider Procedure and treatment not carried out due to patient leaving prior to being seen by health care provider Diagnosis 08/19/2020 05:11:00 PM [facility] K029 Dental caries, unspecified Dental caries, unspecified Diagnosis 04/06/2020 10:12:00 PM EDT [facility] K0889 Other specified disorders of teeth and s upporting structures Other specified disorders of teeth and supporting structures Diagnosis 04/06/2020 10:12:00 PM EDT [facility] [id number] Dental abscess Dental Abscess Problem 04/14/2021 12:00: 00 AM EDT TRAM ([facility]) [id number] Anxiety Anxiety Problem 12/13/2020 12:00:00 AM ED T TRAM ([facility]) [id number] Anxiety Anxiety Problem 12/13/2020 12:00:00 AM ED T TRAM ([facility]) [id number] Anxiety Anxiety Problem 12/13/2020 12:00:00 AM ED T TRAM ([facility]) [id number] Anxiety Anxiety Problem 12/13/2020 12:00:00 AM ED T TRAM ([facility]) [id number] Anxiety Anxiety Problem 12/13/2020 12:00:00 AM ED T TRAM ([facility]) [id number] Anxiety Anxiety Problem 12/13/2020 12:00:00 AM ED T TRAM ([facility]) [id number] Anxiety Anxiety Problem 12/13/2020 12:00:00 AM ED T TRAM ([facility]) [id number] Anxiety Anxiety Problem 12/13/2020 12:00:00 AM ED T TRAM ([facility]) [id number] Opioid dependence Opioid Dependence Problem 11/22/2020 12:00:00 AM EDT TRAM ([facility]) [id number] Opioid dependence Opioid Dependence Problem 11/22/2020 12:00:00 AM EDT TRAM ([facility]) [id number] Opioid dependence Opioid Dependence Problem 11/22/2020 12:00:00 AM EDT TRAM ([facility]) [id number] Opioid dependence Opioid Dependence Problem 11/22/2020 12:00:00 AM EDT TRAM ([facility]) [id number] Opioid dependence Opioid Dependence Problem 11/22/2020 12:00:00 AM EDT TRAM ([facility]) [id number] Opioid dependence Opioid Dependence Problem 11/22/2020 12:00:00 AM EDT TRAM ([facility]) [id number] Opioid dependence Opioid Dependence Problem [facility]/22[facility] [id number] Opioid dependence Opioid Dependence Problem 11/22/2020 12:00:00 AM EDT LAIE ([facility]) [id number] Opioid dependence Opioid Dependence Problem 11/22/2020 12:00:00 AM EDT LAIE ([facility]) [id number] Opioid dependence Opioid Dependence Problem 11/22/2020 12:00:00 AM EDT LAIE ([facility]) 86189786 Opioid dependence Opioid Dependence Problem 11/22/2020 12:00:00 AM EDT [facility]) Surgeries/Procedures No Information Results ID Date Data Source [id number] 03/14/2021 12:00:00 AM EDT [facility]) Name Value Range Interpretation Code Description Data Opal rce(s) Supporting Document(s) ID Date Data Source [id number] 03/14/2021 12:00:00 AM EDT [facility]) Name Value Range Interpretation Code Description Data Opal rce(s) Supporting Document(s) ID Date Data Source [id number] 02/14/2021 12:00:00 AM EDT [facility]) Name Value Range Interpretation Code Description Data Opal rce(s) Supporting Document(s) ID Date Data Source [id number] 02/14/2021 12:00:00 AM EDT [facility]) Name Value Range Interpretation Code Description Data Opal rce(s) Supporting Document(s) ID Date Data Source [id number] 02/14/2021 12:00:00 AM EDT [facility]) Name Value Range Interpretation Code Description Data Opal rce(s) Supporting Document(s) ID Date Data Source [id number] 01/22/2021 12:00:00 AM EDT [facility]) Name Value Range Interpretation Code Description Data Opal rce(s) Supporting Document(s) ID Date Data Source [id number] 01/22/2021 12:00:00 AM EDT [facility]) Name Value Range Interpretation Code Description Data Opal rce(s) Supporting Document(s) ID Date Data Source [id number] 01/22/2021 [facility] Name Value Range Interpretation Code Description Data Opal rce(s) Supporting Document(s) ID Date Data Source [id number] 01/22/2021 12:00:00 AM EDT [facility]) Name Value Range Interpretation Code Description Data Opal rce(s) Supporting Document(s) ID Date Data Source [id number] 01/05/2021 12:00:00 AM EDT [facility]) Name Value Range Interpretation Code Description Data Opal rce(s) Supporting Document(s) ID Date Data Source [id number] 01/05/2021 12:00:00 AM EDT [facility]) Name Value Range Interpretation Code Description Data Opal rce(s) Supporting Document(s) ID Date Data Source [id number] 01/05/2021 12:00:00 AM EDT [facility]) Name Value Range Interpretation Code Description Data Opal rce(s) Supporting Document(s) ID Date Data Source [id number] 01/05/2021 12:00:00 AM EDT [facility]) Name Value Range Interpretation Code Description Data Opal rce(s) Supporting Document(s) ID Date Data Source [id number] 01/05/2021 [facility] Name Value Range Interpretation Code Description Data Opal rce(s) Supporting Document(s) ID Date Data Source [id number] 12/22/2020 12:00:00 AM EDT [facility] Name Value Range Interpretation Code Description Data Opal rce(s) Supporting Document(s) SARS-CoV2 Rapid Antigen Negative [facility] This lab was ordered by [facility] and reported by Nathanael Estrada MD. ID Date Data Source [id number] 12/16/2020 12:00:00 AM EDT [facility] Name Value Range Interpretation Code Description Data Opal rce(s) Supporting Document(s) SARS-CoV2 Rapid Antigen Negative [facility] This lab was ordered by [facility] and reported by Nathanael Estrada MD. ID Date Data Source [id number] 12/13/2020 12:00:[facility] Name Value Range Interpretation Code Description Data Opal rce(s) Supporting Document(s) ID Date Data Source [id number] 12/13/2020 12:00:[facility] Name Value Range Interpretation Code Description Data Opal rce(s) Supporting Document(s) ID Date Data Source [id number] 12/13/2020 12:00:[facility] Name Value Range Interpretation Code Description Data Opal rce(s) Supporting Document(s) ID Date Data Source [id number] 12/13/2020 12:00:[facility] Name Value Range Interpretation Code Description Data Opal rce(s) Supporting Document(s) ID Date Data Source [id number] 12/13/2020 12:00:00 AM EDT [facility]) Name Value Range Interpretation Code Description Data Opal rce(s) Supporting Document(s) ID Date Data Source [id number] 12/13/2020 12:00:00 AM EDT [facility]) Name Value Range Interpretation Code Description Data Opal rce(s) Supporting Document(s) ID Date Data Source [id number] 12/13/2020 12:00:00 AM EDT [facility]) Name Value Range Interpretation Code Description Data Opal rce(s) Supporting Document(s) ID Date Data Source [id number] 12/06/2020 12:00:00 AM EDT [facility]) Name Value Range Interpretation Code Description Data Opal rce(s) Supporting Document(s) ID Date Data Source [id number] 12/06/2020 12:00:00 AM EDT [facility]) Name Value Range Interpretation Code Description Data Opal rce(s) Supporting Document(s) ID Date Data Source [id number] 12/06/2020 12:00:00 AM EDT [facility]) Name Value Range Interpretation Code Description Data Opal rce(s) Supporting Document(s) ID Date Data Source [id number] 12/06/2020 12:00:00 AM EDT [facility]) Name Value Range Interpretation Code Description Data Opal rce(s) Supporting Document(s) ID Date Data Source [id number] 12/06/2020 12:00:00 AM EDT TRAM ([facility]) Name Value Range Interpretation Code Description Data Opal rce(s) Supporting Document(s) ID Date Data Source [id number] 12/06/2020 12:00:00 AM EDT [facility]) Name Value Range Interpretation Code Description Data Opal rce(s) Supporting Document(s) ID Date Data Source [id number] 12/06/2020 [facility] Name Value Range Interpretation Code Description Data Opal rce(s) Supporting Document(s) ID Date Data Source [id number] 12/06/2020 12:00[facility] Name Value Range Interpretation Code Description Data Opal rce(s) Supporting Document(s) ID Date Data Source [id number] 11/30/2020 06:15:00 PM EDT [facility] 1 OrderSheet [facility] [address] [place] [address] Phone #: ext- [phone] 11/30/2020 18:01 Patient: [...] Cancelled: Patient Refusal 19:00 Deyvi 2 OrderSheet [facility] [address] [place] [address] Phone #: ext- [phone] 11/30/2020 18:01 Patient: STEVEN MACEDO Sex: M [...] rce(s) Supporting Document(s) ID Date Data Source [id number] 11/30/2020 06:15:00 PM EDT [place] [address] Medication Reconciliation Report [facility] [address] [place] [address] Phone #: ext- [phone] 11/30/2020 18:01 Patient: [...] rce(s) Supporting Document(s) ID Date Data Source [id number] 11/30/2020 06:15:00 PM EDT [facility] 1 Medication Administration Record [facility] [address] [place] [address] Phone #: ext- [phone] 18:01 Patient: STEVEN MACEDO Sex: M : 1995 Age: 25yWeight: 81.6 kgHeight/Length: 68 inBMI: 27.4ALLERGIES: No Known Drug AllergyDate/Time Medication Administered Medication Ordered Name Value Range Interpretation Code Description Data Opal rce(s) Supporting Document(s) ID Date Data Source [id number] 11/30/2020 06:15:00 PM EDT [facility] 1 General Instructions [facility] [address] [place] [address] Phone #: ext- [phone] 11/30/2020 18:01 Patient: STEVEN MACEDO Sex: M [...] pay for such care. 2 General Instructions [facility] [address] [place] [address] Phone #: ext- [phone] 11/30/2020 18:01 Patient: DAVINA MACEDORoxy Gupta Sex: M : 1995 Age: 25yNo strenuous activity until better. Do not work for one day.(Electronically signed by THO Be 11/30/2020 19:53) Name Value Range Interpretation Code Description Data Opal rce(s) Supporting Document(s) ID Date Data Source [id number] 11/30/2020 06:15:00 PM EDT [facility] 1 Clinical Report - Nurses [facility] [address] [place] [address] Phone #: ext- [phone] 11/30/2020 18:01 Patient: [...] to Coronavirus. 2 Clinical Report - Nurses [facility] [address] [place] [address] Phone #: ext- [phone] 11/30/2020 18:01 Patient: [...] treatment room. --18:09 11/30/20 Per Reid RN.PHYSICAL [id number] 11/30/20. Ambulatory to room.GENERAL / NEURO / [...] Cochran, NORM 3 Clinical Report - Nurses [facility] [address] [place] [address] Phone #: ext- [phone] 11/30/2020 18:01 Patient: [...] rce(s) Supporting Document(s) ID Date Data Source [id number] 11/30/2020 06:15:00 PM EDT [facility] 1 Clinical Report - Physicians/Mid Levels [facility] [address] [place] [address] Phone #: ext- [phone] 11/30/2020 18:01 Patient: [...] today after taking his prescription suboxone (quit [id number] ago), Headache described as L sided and [...] use. 2 Clinical Report - Physicians/Mid Levels [facility] [address] [place] [address] Phone #: ext- [phone] 11/30/2020 18:01 Patient: [...] or 3 Clinical Report - Physicians/Mid Levels [facility] [address] [place] [address] Phone #: ext- [phone] 11/30/2020 18:01 [facility]: [id number] Sex: M : 1995 Age: 25y extreme [...] rce(s) Supporting Document(s) ID Date Data Source [id number] 11/29/2020 12:00:00 AM EDT [facility]) Name Value Range Interpretation Code Description Data Opal rce(s) Supporting Document(s) ID Date Data Source [id number] 11/29/2020 12:00:00 AM EDT [facility]) Name Value Range Interpretation Code Description Data Opal rce(s) Supporting Document(s) ID Date Data Source [id number] 11/29/2020 [facility] Name Value Range Interpretation Code Description Data Opal rce(s) Supporting Document(s) ID Date Data Source [id number] 11/29/2020 12:00:00 AM EDT [facility]) Name Value Range Interpretation Code Description Data Opal rce(s) Supporting Document(s) ID Date Data Source [id number] 11/29/2020 12:00:[facility] Name Value Range Interpretation Code Description Data Opal rce(s) Supporting Document(s) ID Date Data Source [id number] 11/29/2020 12:00:00 AM EDT [facility]) Name Value Range Interpretation Code Description Data Oapl rce(s) Supporting Document(s) ID Date Data Source [id number] 11/29/2020 12:00:00 AM EDT [facility]) Name Value Range Interpretation Code Description Data Opal rce(s) Supporting Document(s) ID Date Data Source [id number] 11/29/2020 12:00:00 AM EDT [facility]) Name Value Range Interpretation Code Description Data Opal rce(s) Supporting Document(s) ID Date Data Source [id number] 11/29/2020 [facility] Name Value Range Interpretation Code Description Data Opal rce(s) Supporting Document(s) ID Date Data Source [id number] 11/22/2020 12:00:[facility] Name Value Range Interpretation Code Description Data Opal rce(s) Supporting Document(s) ID Date Data Source [id number] 11/22/2020 12:00:00 [facility] Name Value Range Interpretation Code Description Data Opal rce(s) Supporting Document(s) ID Date Data Source [id number] 11/22/2020 12:00:00 AM EDT [facility]) Name Value Range Interpretation Code Description Data Opal rce(s) Supporting Document(s) ID Date Data Source [id number] 11/22/2020 12:00:00 AM EDT [facility]) Name Value Range Interpretation Code Description Data Opal rce(s) Supporting Document(s) ID Date Data Source [id number] 11/22/2020 12:00:[facility] Name Value Range Interpretation Code Description Data Opal rce(s) Supporting Document(s) ID Date Data Source [id number] 11/22/2020 12:00:[facility] Name Value Range Interpretation Code Description Data Opal rce(s) Supporting Document(s) ID Date Data Source [id number] 11/22/2020 12:00:00 AM EDT [facility]) Name Value Range Interpretation Code Description Data Opal rce(s) Supporting Document(s) ID Date Data Source [id number] 11/22/2020 12:00:[facility] Name Value Range Interpretation Code Description Data Opal rce(s) Supporting Document(s) ID Date Data Source [id number] 11/22/2020 12:00:00 AM EDT [facility]) Name Value Range Interpretation Code Description Data Opal rce(s) Supporting Document(s) ID Date Data Source [id number] 11/22/2020 12:00:00 AM EDT [facility]) Name Value Range Interpretation Code Description Data Opal rce(s) Supporting Document(s) ID Date Data Source [id number] 08/19/2020 05:11:00 PM EST [facility] 1 Medication Reconciliation Report [facility] [address] [place] [address] Phone #: ext- [phone] 08/19/2020 16:48 Patient: [...] Name Value Range Interpretation Code Description Data [facility](s) Supporting Document(s) ID Date Data Source [id number] 08/19/2020 05:11:00 PM [place] [address] Medication Administration Record [facility] [address] [place] [address] Phone #: ext [phone] 16:48 Patient: STEVEN MACEDO Sex: M : 1995 Age: 25yWeight: 86.1 kgHeight/Length: 68 inBMI: 28.9ALLERGIES: No Known Drug AllergyDate/Time Medication Administered Medication Ordered Name Value Range Interpretation Code Description Data [facility](s) Supporting Document(s) ID Date Data Source [id number] 08/19/2020 05:11:00 PM [facility] 1 Clinical Report - Nurses [facility] [address] [place] [address] Phone #: ext [phone] 08/19/2020 16:48 Patient: STEVEN MACEDO Sex: M : 1995 Age: 25yTRIAGEArrived by private vehicle. Historian: patient. Accompanied by family.Acuity: LEVEL 4.Chief Complaint: LEFT LOWER TOOTHACHE.Alert. No acute distress.Onset. (2 months). ( Pt is scheduled for a tooth extraction to the L lower molar on 08/25. The pain hasbecome unbearable and he says he cant wait until then.). 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 [...] Alvarado R.N. 2 Clinical Report - Nurses [facility] [address] [place] [address] Phone #: ext- [phone] 08/19/2020 16:48 Patient: ST[facility]ED[id number] Sex: M : 1995 Age: 25y The [...] within normal 3 Clinical Report - Nurses [facility] [address] [place] [address] Phone #: ext- [phone] 08/19/2020 16:48 Patient: STEVEN MACEDO Sex: M : 1995 Age: 25y limits. Left lower second and third molar(s). Mucous membranes are pink. RESPIRATORY: Respirations not labored. CVS: Capillary refill less than 2 seconds. SKIN: Skin is warm and dry. Normal skin turgor. --17:30 08/19/20 Amena Alvarado R.N.NURSING PROGRESS NOTES17:59 08/19/20. BP: 116/78. MAP: 90. HR: 75. RR: 18. O2 saturation: 98%. --18:00 08/19/20 [place] [address].DISPOSITION / DISCHARGE Departure time: 18:05 08/19/2020. --18:05 [...] rce(s) Supporting Document(s) ID Date Data Source [id number] 04/06/2020 10:12:00 PM EDT [facility] 1 OrderSheet [facility] [address] [place] [address] Phone #: ext- [phone] 04/06/2020 22:09 Patient: [...] rce(s) Supporting Document(s) ID Date Data Source [id number] 04/06/2020 10:12:00 PM EDT [facility] 1 Medication Reconciliation Report [facility] [address] [place] [address] Phone #: ext- [phone] 04/06/2020 22:09 Patient: [...] days -- Dispense 20tablet. Refills: 0. Substitution permitted.[employer] - [facility] [place] [id number]. .Lidocaine Viscous 2 % mucosal solution Apply 1 ml five times a day -- Dispense 100 ml. Refills: 0.Substitution permitted.[facility] [address] [place] [address] [phone]. . -- THO Coy Name Value Range Interpretation Code Description Data Opal rce(s) Supporting Document(s) ID Date Data Source [id number] 04/06/2020 10:12:00 PM EDT [facility] 1 Medication Administration Record [facility] [address] [place] [address] Phone #: ext- [phone] 04/06/2020 22:09 Patient: STEVEN MACEDO Sex: M [...] rce(s) Supporting Document(s) ID Date Data Source [id number] 04/06/2020 10:12:00 PM EDT [facility] 1 General Instructions [facility] [address] [place] [address] Phone #: ext- [phone] 04/06/2020 22:09 Patient: STEVEN MACEDO Sex: M : 1995 Age: 25yDental caries (localized)INSTRUCTIONSYour Current Medications: Your current home medications have been reviewed.CONTINUE TAKING THE FOLLOWING MEDICATIONS:SEROquel Oral.Zoloft Oral.Prescription Medications:Augmentin 875 mg-125 mg tablet Take 1 tablet twice a day as directed for 10 days -- Dispense 20tablet. Refills: 0. Substitution permitted.Pharmacy - [facility] - [address], [place] [phone]. .Lidocaine Viscous 2 % mucosal solution Apply 1 ml five times a day -- Dispense 100 ml. Refills: 0.Substitution permitted.Pharmacy - [facility] - [address] [facility] ; [place], [place] [phone]. .Follow-up:Follow up with a specialist Dentist. Call for an appointment. Reason for referral: evaluation and treatment.Summary of care provided to patient.Understanding of the discharge instructions verbalized by patient. ADDITIONAL INFORMATIONDental Cavity 2 General Instructions [facility] ent [address] [facility], [place] [address] Phone #: ext- [phone] 04/06/2020 22:09 Patient: STEVEN MACEDO Sex: Candy [...] cloves at drugstores. Some pharmacies carry an dpmb-pzm-hfwhmxo "toothache kit." This contains a paste that you can put on the exposed tooth to make it less sensitive. 3 General Instructions [facility] [address] [place] [address] Phone #: ext- [phone] 04/06/2020 22:09 Patient: STEVEN MACEDO Sex: M : 1995 Age: 25y Put a cold pack on your jaw over the sore area to help reduce pain. You may use sxat-ghh-hvsyovt medicine to ease pain, unless another medicine [...] this problem to prevent further tooth damage.Call [phone] if any of these occur: Difficulty [...] Pus drains from the tooth or gum [phone] [employer]. [address] [place] [address], [place] [address]. All rights reserved. This information is not [...] can cause problems with 4 General Instructions [facility] [address] [place] [address] Phone #: ext- [phone] 04/06/2020 22:09 Patient: [...] reduce pain. Oil of cloves is sold dgkl-ynh-mykcicu in pharmacies. Some pharmacies carry an vfjy-azx-suechvs "toothache kit." This contains oil of cloves [...] directly on the skin. 5 General Instructions [facility] [address] [place] [address] Phone #: ext- [phone] 04/06/2020 22:09 Patient: [...] sooner.Follow-up careFollow up as advised with an personal lines underwriter, or oral surgeon. Even though your pain may improve withthe treatment given today, only a dentist, personal lines underwriter, or oral surgeon can provide full treatment forthis problem. If a culture was done, you will be told if the treatment needs to be changed. You can call in as directed for the results. If X-rays were taken, they will be reviewed by a specialist. You will be given the results, especially if they affect treatment.Call [phone] if any of these occur: Trouble breathing [...] stiff neck, or weakness 6 General Instructions [facility] [address] [place] [address] Phone #: hbq- [phone] 04/06/2020 22:09 Patient: STEVEN MACEDO Sex: M : 1995 Age: 25y Pus drains from the gum or tooth You can't open your mouth wide 1999- 2017 [employer]. [address] [place] [address], [place] [address]. All rights reserved. This information is not [...] sensitive to changes in 7 General Instructions [facility] [address] [place] [address] Phone #: ext- [phone] 04/06/2020 22:09 Patient: STEVEN MACEDO Sex: M : 1995 Age: 25y temperature. Use toothpaste made for sensitive teeth. Moccasin gently up and down instead of sideways. Brushing sideways can wear away root surfaces if they are exposed. If your tooth is chipped or cracked, or if there is a large open cavity, put oil of cloves directly on the tooth to relieve pain. You can buy oil of cloves at drugstores. Some pharmacies carry an wpkq-clw-zcefmbr "toothache kit." This contains a paste that you can put on the exposed tooth to make it less sensitive. Put a cold pack on your jaw over the sore area to help reduce pain. You may use [id number] medicine to ease pain, unless your doctor [...] This will keep the pain from comingback.Call [phone] if any of these occur: Unusual drowsiness [...] drains from the tooth 8 General Instructions [facility] Department [address] [place] [address] Phone #: [phone] ext- [phone] 04/06/2020 22:09 Patient: STEVEN MACEDO Sex: M : 1995 Age: 25y [phone] [employer]. [address] [place] [address], [place] [address]. All rights reserved. This information is not intended as asubstitute for professional medical care. Always follow your healthcare professional's instructions. You have been given the following additional information: Dental Cavity Tooth Abscess Dental Pain(Electronically signed by THO Coy 04/07/2020 06:59) Name Value Range Interpretation Code Description Data Opal rce(s) Supporting Document(s) ID Date Data Source [id number] 04/06/2020 10:12:00 PM EDT [facility] 1 Clinical Report - Nurses [facility] [address] [place] [address] Phone #: [phone]- [phone] 04/06/2020 22:09 Patient: STEVEN MACEDO Sex: M : 1995 Age: 25yTRIAGEArrived by private vehicle. Historian: patient.Acuity: LEVEL 5.Chief Complaint: RIGHT UPPER TOOTHACHE.Alert. 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 3 Clinical Report - Nurses [facility] [address] [place] [address] Phone #: [phone]- [phone] 04/06/2020 22:09 Patient: STEVEN MACEDO Sex: M [...] Patient verbalized understanding. Written instructions provided in Georgian. The patient was discharged by the physician coding assistant. He was discharged home. He left [...] Name Value Range Interpretation Code Description Data [facility] Supporting Document(s) ID Date Data Source [id number] 04/06/2020 10:12:00 PM EDT [facility] 1 Clinical Report - Physicians/Mid Levels [facility] [address] [place] [address] Phone #: ext- [phone] 04/06/2020 22:09 Patient: [...] occasionally. 2 Clinical Report - Physicians/Mid Levels [facility] [address] [place] [address] Phone #: ext- [phone] 04/06/2020 22:09 [facility]: [id number] Sex: M : 1995 Age: 25y No [...] 22:34 Apr 06 2020. Evaluation after observation. ([id number] risks, benefits, optionsand pt is agreeable with [...] permitted. 3 Clinical Report - Physicians/Mid Levels [facility] [address] [place] [address] Phone #: ext- [phone] 04/06/2020 22:09 Patient: STEVEN MACEDO Sex: Candy : 1995 Age: 25y [facility][phone] [facility] ; [place], [place] [id number]. . Lidocaine Viscous 2 % mucosal solution Apply 1 ml five times a day -- Dispense 100 ml. Refills: 0. Substitution permitted. [facility]32 - [phone] [facility] ; [place], [place] [id number]. . Follow-up: Follow up with a specialist [...] Diastolic blood pressure 73 mm[Hg] 73 mm[Hg] LAIE ([facility]) Body height 69 [in_i] 69 [in_i] LAIE ([facility]) Body mass index (BMI) [Ratio] 29.2 kg/m2 29.2 k g/m2 TRAM ([facility]) Systolic blood pressure 115 mm[Hg] 115 mm[Hg] A THENA ([facility]) Body weight 3168 [oz_av] 3168 [oz_av] TRAM ([facility]) Body weight 3168 [oz_av] 3168 [oz_av] TRAM ([facility]) Diastolic blood pressure 73 mm[Hg] 73 mm[Hg] LAIE ([facility]) Body height 69 [in_i] 69 [in_i] LAIE ([facility]) Body mass index (BMI) [Ratio] 29.2 kg/m2 29.2 k g/m2 TRAM ([facility]) Systolic blood pressure 115 mm[Hg] 115 mm[Hg] [facility] Diastolic blood pressure 74 mm[Hg] 74 mm[Hg] TRAM ([facility]) Body height 69 [in_i] 69 [in_i] TRAM ([facility]) Body mass index (BMI) [Ratio] 28.3 kg/m2 28.3 k g/m2 TRAM ([facility]) Systolic blood pressure 117 mm[Hg] 117 mm[Hg] A THENA ([facility]) Body weight 3064 [oz_av] 3064 [oz_av] TRAM ([facility]) Diastolic blood pressure 74 mm[Hg] 74 mm[Hg] TRAM ([facility]) Body height 69 [in_i] 69 [in_i] TRAM ([facility]) Body mass index (BMI) [Ratio] 28.3 kg/m2 28.3 k g/m2 TRAM ([facility]) Systolic blood pressure 117 mm[Hg] 117 mm[Hg] A THENA ([facility]) Body weight 3064 [oz_av] 3064 [oz_av] TRAM ([facility]) Diastolic blood pressure 74 mm[Hg] 74 mm[Hg] TRAM ([facility]) Body height 69 [in_i] 69 [in_i] TRAM ([facility]) Body mass index (BMI) [Ratio] 28.3 kg/m2 28.3 k g/m2 TRAM ([facility]) Systolic blood pressure 117 mm[Hg] 117 mm[Hg] A THENA ([facility]) Body weight 3064 [oz_av] 3064 [oz_av] TRAM ([facility]) Diastolic blood pressure 63 mm[Hg] 63 mm[Hg] TRAM ([facility]) Body height 69 [in_i] 69 [in_i] TRAM ([facility]) Body mass index (BMI) [Ratio] 27.2 kg/m2 27.2 k g/m2 TRAM ([facility]) Systolic blood pressure 101 mm[Hg] 101 mm[Hg] A THENA ([facility]) Body weight 2948 [oz_av] 2948 [oz_av] TRAM ([facility]) Diastolic blood pressure 63 mm[Hg] 63 mm[Hg] TRAM ([facility]) Body height 69 [in_i] 69 [in_i] TRAM ([facility]) Body mass index (BMI) [Ratio] 27.2 kg/m2 27.2 k g/m2 TRAM ([facility]) Systolic blood pressure 101 mm[Hg] 101 mm[Hg] A THENA ([facility]) Body weight 2948 [oz_av] 2948 [oz_av] TRAM ([facility]) Diastolic blood pressure 63 mm[Hg] 63 mm[Hg] TRAM ([facility]) Body height 69 [in_i] 69 [in_i] TRAM ([facility]) Body mass index (BMI) [Ratio] 27.2 kg/m2 27.2 k g/m2 TRAM ([facility]) Systolic blood pressure 101 mm[Hg] 101 mm[Hg] A THENA ([facility]) Body weight 2948 [oz_av] 2948 [oz_av] TRAM ([facility]) Diastolic blood pressure 63 mm[Hg] 63 mm[Hg] TRAM ([facility]) Body height 69 [in_i] 69 [in_i] TRAM ([facility]) Body mass index (BMI) [Ratio] 27.2 kg/m2 27.2 k g/m2 TRAM ([facility]) Systolic blood pressure 101 mm[Hg] 101 mm[Hg] A THENA ([facility]) Body weight 2948 [oz_av] 2948 [oz_av] TRAM ([facility]) Diastolic blood pressure 69 mm[Hg] 69 mm[Hg] TRAM ([facility]) Body height 69 [in_i] 69 [in_i] TRAM ([facility]) Body mass index (BMI) [Ratio] 27.2 kg/m2 27.2 k g/m2 TRAM ([facility]) Systolic blood pressure 115 mm[Hg] 115 mm[Hg] A THENA ([facility]) Body weight 2944 [oz_av] 2944 [oz_av] TRAM ([facility]) Diastolic blood pressure 69 mm[Hg] 69 mm[Hg] TRAM ([facility]) Body height 69 [in_i] 69 [in_i] TRAM ([facility]) Body mass index (BMI) [Ratio] 27.2 kg/m2 27.2 k g/m2 TRAM ([facility]) Systolic blood pressure 115 mm[Hg] 115 mm[Hg] A THENA ([facility]) Body weight 2944 [oz_av] 2944 [oz_av] TRAM ([facility]) Diastolic blood pressure 69 mm[Hg] 69 mm[Hg] TRAM ([facility]) Body height 69 [in_i] 69 [in_i] TRAM ([facility]) Body mass index (BMI) [Ratio] 27.2 kg/m2 27.2 k g/m2 TRAM ([facility]) Systolic blood pressure 115 mm[Hg] 115 mm[Hg] A THENA ([facility]) Body weight 2944 [oz_av] 2944 [oz_av] TRAM ([facility]) Diastolic blood pressure 69 mm[Hg] 69 mm[Hg] TRAM ([facility]) Body height 69 [in_i] 69 [in_i] TRAM ([facility]) Body mass index (BMI) [Ratio] 27.2 kg/m2 27.2 k g/m2 TRAM ([facility]) Systolic blood pressure 115 mm[Hg] 115 mm[Hg] A THENA ([facility]) Body weight 2944 [oz_av] 2944 [oz_av] TRAM ([facility]) Diastolic blood pressure 69 mm[Hg] 69 mm[Hg] TRAM ([facility]) Body height 69 [in_i] 69 [in_i] TRAM ([facility]) Body mass index (BMI) [Ratio] 27.2 kg/m2 27.2 k g/m2 TRAM ([facility]) Systolic blood pressure 115 mm[Hg] 115 mm[Hg] A THENA ([facility]) Body weight 2944 [oz_av] 2944 [oz_av] TRAM ([facility]) Diastolic blood pressure 63 mm[Hg] 63 mm[Hg] TRAM ([facility]) Body height 69 [in_i] 69 [in_i] TRAM ([facility]) Body mass index (BMI) [Ratio] 27.2 kg/m2 27.2 k g/m2 TRAM ([facility]) Systolic blood pressure 107 mm[Hg] 107 mm[Hg] A THENA ([facility]) Body weight 2944 [oz_av] 2944 [oz_av] TRAM ([facility]) Diastolic blood pressure 63 mm[Hg] 63 mm[Hg] TRAM ([facility]) Body height 69 [in_i] 69 [in_i] TRAM ([facility]) Body mass index (BMI) [Ratio] 27.2 kg/m2 27.2 k g/m2 TRAM ([facility]) Systolic blood pressure 107 mm[Hg] 107 mm[Hg] A THENA ([facility]) Body weight 2944 [oz_av] 2944 [oz_av] TRAM ([facility]) Diastolic blood pressure 63 mm[Hg] 63 mm[Hg] TRAM ([facility]) Body height 69 [in_i] 69 [in_i] TRAM ([facility]) Body mass index (BMI) [Ratio] 27.2 kg/m2 27.2 k g/m2 TRAM ([facility]) Systolic blood pressure 107 mm[Hg] 107 mm[Hg] A THENA ([facility]) Body weight 2944 [oz_av] 2944 [oz_av] TRAM ([facility]) Diastolic blood pressure 63 mm[Hg] 63 mm[Hg] TRAM ([facility]) Body height 69 [in_i] 69 [in_i] TRAM ([facility]) Body mass index (BMI) [Ratio] 27.2 kg/m2 27.2 k g/m2 TRAM ([facility]) Systolic blood pressure 107 mm[Hg] 107 mm[Hg] A THENA ([facility]) Body weight 2944 [oz_av] 2944 [oz_av] TRAM ([facility]) Diastolic blood pressure 63 mm[Hg] 63 mm[Hg] TRAM ([facility]) Body height 69 [in_i] 69 [in_i] TRAM ([facility]) Body mass index (BMI) [Ratio] 27.2 kg/m2 27.2 k g/m2 TRAM ([facility]) Systolic blood pressure 107 mm[Hg] 107 mm[Hg] A THENA ([facility]) Body weight 2944 [oz_av] 2944 [oz_av] TRAM ([facility]) Diastolic blood pressure 63 mm[Hg] 63 mm[Hg] TRAM ([facility]) Body height 69 [in_i] 69 [in_i] TRAM ([facility]) Body mass index (BMI) [Ratio] 27.2 kg/m2 27.2 k g/m2 TRAM ([facility]) Systolic blood pressure 107 mm[Hg] 107 mm[Hg] A THENA ([facility]) Body weight 2944 [oz_av] 2944 [oz_av] TRAM ([facility]) Body height 69 [in_i] 69 [in_i] TRAM ([facility]) Body height 69 [in_i] 69 [in_i] TRAM ([facility]) Body height 69 [in_i] 69 [in_i] TRAM ([facility]) Body height 69 [in_i] 69 [in_i] TRAM ([facility]) Body height 69 [in_i] 69 [in_i] TRAM ([facility]) Body height 69 [in_i] 69 [in_i] TRAM ([facility]) Body height 69 [in_i] 69 [in_i] TRAM ([facility]) Diastolic blood pressure 79 mm[Hg] 79 mm[Hg] TRAM ([facility]) Body height 69 [in_i] 69 [in_i] TRAM ([facility]) Body mass index (BMI) [Ratio] 27.2 kg/m2 27.2 k g/m2 TRAM ([facility]) Systolic blood pressure 125 mm[Hg] 125 mm[Hg] A THENA ([facility]) Body weight 2944 [oz_av] 2944 [oz_av] TRAM ([facility]) Diastolic blood pressure 79 mm[Hg] 79 mm[Hg] TRAM ([facility]) Body height 69 [in_i] 69 [in_i] TRAM ([facility]) Body mass index (BMI) [Ratio] 27.2 kg/m2 27.2 k g/m2 TRAM ([facility]) Systolic blood pressure 125 mm[Hg] 125 mm[Hg] [facility] Body weight 2944 [oz_av] 2944 [oz_av] TRAM ([facility]) Diastolic blood pressure 79 mm[Hg] 79 mm[Hg] TRAM ([facility]) Body height 69 [in_i] 69 [in_i] TRAM ([facility]) Body mass index (BMI) [Ratio] 27.2 kg/m2 27.2 k g/m2 TRAM ([facility]) Systolic blood pressure 125 mm[Hg] 125 mm[Hg] A THENA ([facility]) Body weight 2944 [oz_av] 2944 [oz_av] TRAM ([facility]) Diastolic blood pressure 79 mm[Hg] 79 mm[Hg] TRAM ([facility]) Body height 69 [in_i] 69 [in_i] TRAM ([facility]) Body mass index (BMI) [Ratio] 27.2 kg/m2 27.2 k g/m2 TRAM ([facility]) Systolic blood pressure 125 mm[Hg] 125 mm[Hg] A THENA ([facility]) Body weight 2944 [oz_av] 2944 [oz_av] TRAM ([facility]) Diastolic blood pressure 79 mm[Hg] 79 mm[Hg] TRAM ([facility]) Body height 69 [in_i] 69 [in_i] TRAM ([facility]) Body mass index (BMI) [Ratio] 27.2 kg/m2 27.2 k g/m2 TRAM ([facility]) Systolic blood pressure 125 mm[Hg] 125 mm[Hg] A THENA ([facility]) Body weight 2944 [oz_av] 2944 [oz_av] TRAM ([facility]) Diastolic blood pressure 79 mm[Hg] 79 mm[Hg] TRAM ([facility]) Body height 69 [in_i] 69 [in_i] TRAM ([facility]) Body mass index (BMI) [Ratio] 27.2 kg/m2 27.2 k g/m2 TRAM ([facility]) Systolic blood pressure 125 mm[Hg] 125 mm[Hg] [facility] Body weight 2944 [oz_av] 2944 [oz_av] TRAM ([facility]) Diastolic blood pressure 79 mm[Hg] 79 mm[Hg] TRAM ([facility]) Body height 69 [in_i] 69 [in_i] TRAM ([facility]) Body mass index (BMI) [Ratio] 27.2 kg/m2 27.2 k g/m2 TRAM ([facility]) Systolic blood pressure 125 mm[Hg] 125 mm[Hg] A THENA ([facility]) Body weight 2944 [oz_av] 2944 [oz_av] TRAM ([facility]) Diastolic blood pressure 79 mm[Hg] 79 mm[Hg] TRAM ([facility]) Body height 69 [in_i] 69 [in_i] TRAM ([facility]) Body mass index (BMI) [Ratio] 27.2 kg/m2 27.2 k g/m2 TRAM ([facility]) Systolic blood pressure 125 mm[Hg] 125 mm[Hg] A THENA ([facility]) Body weight 2944 [oz_av] 2944 [oz_av] TRAM ([facility]) Diastolic blood pressure 81 mm[Hg] 81 mm[Hg] TRAM ([facility]) Body height 69 [in_i] 69 [in_i] TRAM ([facility]) Body mass index (BMI) [Ratio] 27.1 kg/m2 27.1 k g/m2 TRAM ([facility]) Systolic blood pressure 129 mm[Hg] 129 mm[Hg] A THENA ([facility]) Body weight 2934 [oz_av] 2934 [oz_av] TRAM ([facility]) Diastolic blood pressure 81 mm[Hg] 81 mm[Hg] TRAM ([facility]) Body height 69 [in_i] 69 [in_i] TRAM ([facility]) Body mass index (BMI) [Ratio] 27.1 kg/m2 27.1 k g/m2 TRAM ([facility]) Systolic blood pressure 129 mm[Hg] 129 mm[Hg] [facility] Body weight 2934 [oz_av] 2934 [oz_av] TRAM ([facility]) Body height 69 [in_i] 69 [in_i] TRAM ([facility]) Body mass index (BMI) [Ratio] 27.1 kg/m2 27.1 k g/m2 TRAM ([facility]) Systolic blood pressure 129 mm[Hg] 129 mm[Hg] A THENA ([facility]) Body weight 2934 [oz_av] 2934 [oz_av] TRAM ([facility]) Diastolic blood pressure 81 mm[Hg] 81 mm[Hg] TRAM ([facility]) Diastolic blood pressure 81 mm[Hg] 81 mm[Hg] TRAM ([facility]) Body height 69 [in_i] 69 [in_i] TRAM ([facility]) Body mass index (BMI) [Ratio] 27.1 kg/m2 27.1 k g/m2 TRAM ([facility]) Systolic blood pressure 129 mm[Hg] 129 mm[Hg] A THENA ([facility]) Body weight 2934 [oz_av] 2934 [oz_av] TRAM ([facility]) Diastolic blood pressure 81 mm[Hg] 81 mm[Hg] TRAM ([facility]) Body height 69 [in_i] 69 [in_i] TRAM ([facility]) Body mass index (BMI) [Ratio] 27.1 kg/m2 27.1 k g/m2 TRAM ([facility]) Systolic blood pressure 129 mm[Hg] 129 mm[Hg] A THENA ([facility]) Body weight 2934 [oz_av] 2934 [oz_av] TRAM ([facility]) Diastolic blood pressure 81 mm[Hg] 81 mm[Hg] TRAM ([facility]) Body height 69 [in_i] 69 [in_i] TRAM ([facility]) Body mass index (BMI) [Ratio] 27.1 kg/m2 27.1 k g/m2 TRAM ([facility]) Systolic blood pressure 129 mm[Hg] 129 mm[Hg] [facility] Body weight 2934 [oz_av] 2934 [oz_av] TRAM ([facility]) Diastolic blood pressure 81 mm[Hg] 81 mm[Hg] TRAM ([facility]) Body height 69 [in_i] 69 [in_i] TRAM ([facility]) Body mass index (BMI) [Ratio] 27.1 kg/m2 27.1 k g/m2 TRAM ([facility]) Systolic blood pressure 129 mm[Hg] 129 mm[Hg] A THENA ([facility]) Body weight 2934 [oz_av] 2934 [oz_av] TRAM ([facility]) Diastolic blood pressure 81 mm[Hg] 81 mm[Hg] TRAM ([facility]) Body height 69 [in_i] 69 [in_i] TRAM ([facility]) Body mass index (BMI) [Ratio] 27.1 kg/m2 27.1 k g/m2 TRAM ([facility]) Systolic blood pressure 129 mm[Hg] 129 mm[Hg] A THENA ([facility]) Body weight 2934 [oz_av] 2934 [oz_av] TRAM ([facility]) Diastolic blood pressure 81 mm[Hg] 81 mm[Hg] TRAM ([facility]) Body height 69 [in_i] 69 [in_i] TRAM ([facility]) Body mass index (BMI) [Ratio] 27.1 kg/m2 27.1 k g/m2 TRAM ([facility]) Systolic blood pressure 129 mm[Hg] 129 mm[Hg] A THENA ([facility]) Body weight 2934 [oz_av] 2934 [oz_av] TRAM ([facility]) Diastolic blood pressure 83 mm[Hg] 83 mm[Hg] TRAM ([facility]) Body height 69 [in_i] 69 [in_i] TRAM ([facility]) Body mass index (BMI) [Ratio] 26.8 kg/m2 26.8 k g/m2 TRAM ([facility]) Systolic blood pressure 133 mm[Hg] 133 mm[Hg] [facility] Body weight 2904 [oz_av] 2904 [oz_av] TRAM ([facility]) Diastolic blood pressure 83 mm[Hg] 83 mm[Hg] TRAM ([facility]) Body height 69 [in_i] 69 [in_i] TRAM ([facility]) Body mass index (BMI) [Ratio] 26.8 kg/m2 26.8 k g/m2 TRAM ([facility]) Systolic blood pressure 133 mm[Hg] 133 mm[Hg] A THENA ([facility]) Body weight 2904 [oz_av] 2904 [oz_av] TRAM ([facility]) Diastolic blood pressure 83 mm[Hg] 83 mm[Hg] TRAM ([facility]) Body height 69 [in_i] 69 [in_i] TRAM ([facility]) Body mass index (BMI) [Ratio] 26.8 kg/m2 26.8 k g/m2 TRAM ([facility]) Systolic blood pressure 133 mm[Hg] 133 mm[Hg] A THENA ([facility]) Body weight 2904 [oz_av] 2904 [oz_av] TRAM ([facility]) Diastolic blood pressure 83 mm[Hg] 83 mm[Hg] TRAM ([facility]) Body height 69 [in_i] 69 [in_i] TRAM ([facility]) Body mass index (BMI) [Ratio] 26.8 kg/m2 26.8 k g/m2 TRAM ([facility]) Systolic blood pressure 133 mm[Hg] 133 mm[Hg] A THENA ([facility]) Body weight 2904 [oz_av] 2904 [oz_av] TRAM ([facility]) Diastolic blood pressure 83 mm[Hg] 83 mm[Hg] TRAM ([facility]) Body height 69 [in_i] 69 [in_i] TRAM ([facility]) Body mass index (BMI) [Ratio] 26.8 kg/m2 26.8 k g/m2 TRAM ([facility]) Systolic blood pressure 133 mm[Hg] 133 mm[Hg] [facility] Body weight 2904 [oz_av] 2904 [oz_av] TRAM ([facility]) Diastolic blood pressure 83 mm[Hg] 83 mm[Hg] TRAM ([facility]) Body height 69 [in_i] 69 [in_i] TRAM ([facility]) Body mass index (BMI) [Ratio] 26.8 kg/m2 26.8 k g/m2 TRAM ([facility]) Systolic blood pressure 133 mm[Hg] 133 mm[Hg] A THENA ([facility]) Body weight 2904 [oz_av] 2904 [oz_av] TRAM ([facility]) Diastolic blood pressure 83 mm[Hg] 83 mm[Hg] TRAM ([facility]) Body height 69 [in_i] 69 [in_i] TRAM ([facility]) Body mass index (BMI) [Ratio] 26.8 kg/m2 26.8 k g/m2 TRAM ([facility]) Systolic blood pressure 133 mm[Hg] 133 mm[Hg] A THENA ([facility]) Body weight 2904 [oz_av] 2904 [oz_av] TRAM ([facility]) Diastolic blood pressure 83 mm[Hg] 83 mm[Hg] TRAM ([facility]) Body height 69 [in_i] 69 [in_i] TRAM ([facility]) Body mass index (BMI) [Ratio] 26.8 kg/m2 26.8 k g/m2 TRAM ([facility]) Systolic blood pressure 133 mm[Hg] 133 mm[Hg] A THENA ([facility]) Body weight 2904 [oz_av] 2904 [oz_av] TRAM ([facility]) Diastolic blood pressure 83 mm[Hg] 83 mm[Hg] TRAM ([facility]) Body height 69 [in_i] 69 [in_i] TRAM ([facility]) Body mass index (BMI) [Ratio] 26.8 kg/m2 26.8 k g/m2 TRAM ([facility]) Systolic blood pressure 133 mm[Hg] 133 mm[Hg] A THENA ([facility]) Body weight 2904 [oz_av] 2904 [oz_av] TRAM ([facility]) Diastolic blood pressure 83 mm[Hg] 83 mm[Hg] TRAM ([facility]) Body height 69 [in_i] 69 [in_i] TRAM ([facility]) Body mass index (BMI) [Ratio] 26.8 kg/m2 26.8 k g/m2 TRAM ([facility]) Systolic blood pressure 133 mm[Hg] 133 mm[Hg] A THENA ([facility]) Body weight 2904 [oz_av] 2904 [oz_av] TRAM ([facility]) Diastolic blood pressure 65 mm[Hg] 65 mm[Hg] TRAM ([facility]) Body height 69 [in_i] 69 [in_i] TRMA ([facility]) Body mass index (BMI) [Ratio] 22.3 kg/m2 22.3 k g/m2 TRAM ([facility]) Systolic blood pressure 107 mm[Hg] 107 mm[Hg] A THENA ([facility]) Body weight 2416 [oz_av] 2416 [oz_av] TRAM ([facility]) Diastolic blood pressure 65 mm[Hg] 65 mm[Hg] TRAM ([facility]) Body height 69 [in_i] 69 [in_i] TRAM ([facility]) Body mass index (BMI) [Ratio] 22.3 kg/m2 22.3 k g/m2 TRAM ([facility]) Systolic blood pressure 107 mm[Hg] 107 mm[Hg] A THENA ([facility]) Body weight 2416 [oz_av] 2416 [oz_av] TRAM ([facility]) Diastolic blood pressure 65 mm[Hg] 65 mm[Hg] TRAM ([facility]) Body height 69 [in_i] 69 [in_i] TRAM ([facility]) Body mass index (BMI) [Ratio] 22.3 kg/m2 22.3 k g/m2 TRAM ([facility]) Systolic blood pressure 107 mm[Hg] 107 mm[Hg] [facility] Body weight 2416 [oz_av] 2416 [oz_av] TRAM ([facility]) Diastolic blood pressure 65 mm[Hg] 65 mm[Hg] TRAM ([facility]) Body height 69 [in_i] 69 [in_i] TRAM ([facility]) Body mass index (BMI) [Ratio] 22.3 kg/m2 22.3 k g/m2 TRAM ([facility]) Systolic blood pressure 107 mm[Hg] 107 mm[Hg] A [facility]NA ([facility]) Body weight 2416 [oz_av] 2416 [oz_av] TRAM ([facility]) Diastolic blood pressure 65 mm[Hg] 65 mm[Hg] TRAM ([facility]) Body height 69 [in_i] 69 [in_i] TRAM ([facility]) Body mass index (BMI) [Ratio] 22.3 kg/m2 22.3 k g/m2 TRAM ([facility]) Systolic blood pressure 107 mm[Hg] 107 mm[Hg] A THENA ([facility]) Body weight 2416 [oz_av] 2416 [oz_av] TRAM ([facility]) Diastolic blood pressure 65 mm[Hg] 65 mm[Hg] TRAM ([facility]) Body height 69 [in_i] 69 [in_i] TRAM ([facility]) Body mass index (BMI) [Ratio] 22.3 kg/m2 22.3 k g/m2 TRAM ([facility]) Systolic blood pressure 107 mm[Hg] 107 mm[Hg] A THENA ([facility]) Body weight 2416 [oz_av] 2416 [oz_av] TRAM ([facility]) Diastolic blood pressure 65 mm[Hg] 65 mm[Hg] TRAM ([facility]) Body height 69 [in_i] 69 [in_i] TRAM ([facility]) Body mass index (BMI) [Ratio] 22.3 kg/m2 22.3 k g/m2 TRAM ([facility]) Systolic blood pressure 107 mm[Hg] 107 mm[Hg] A THENA ([facility]) Body weight 2416 [oz_av] 2416 [oz_av] TRAM ([facility]) Diastolic blood pressure 65 mm[Hg] 65 mm[Hg] TRAM ([facility]) Body height 69 [in_i] 69 [in_i] TRAM ([facility]) Body mass index (BMI) [Ratio] 22.3 kg/m2 22.3 k g/m2 TRAM ([facility]) Systolic blood pressure 107 mm[Hg] 107 mm[Hg] A THENA ([facility]) Body weight 2416 [oz_av] 2416 [oz_av] TRAM ([facility]) Body weight 2416 [oz_av] 2416 [oz_av] TRAM ([facility]) Diastolic blood pressure 65 mm[Hg] 65 mm[Hg] TRAM ([facility]) Body height 69 [in_i] 69 [in_i] TRAM ([facility]) Body mass index (BMI) [Ratio] 22.3 kg/m2 22.3 k g/m2 TRAM ([facility]) Systolic blood pressure 107 mm[Hg] 107 mm[Hg] A THENA ([facility]) Diastolic blood pressure 65 mm[Hg] 65 mm[Hg] TRAM ([facility]) Body height 69 [in_i] 69 [in_i] TRAM ([facility]) Body mass index (BMI) [Ratio] 22.3 kg/m2 22.3 k g/m2 TRAM ([facility]) Systolic blood pressure 107 mm[Hg] 107 mm[Hg] A THENA ([facility]) Body weight 2416 [oz_av] 2416 [oz_av] TRAM ([facility]) Diastolic blood pressure 65 mm[Hg] 65 mm[Hg] TRAM ([facility]) Body height 69 [in_i] 69 [in_i] TRAM ([facility]) Body mass index (BMI) [Ratio] 22.3 kg/m2 22.3 k g/m2 TRAM ([facility]) Systolic blood pressure 107 mm[Hg] 107 mm[Hg] A THENA ([facility]) Body weight 2416 [oz_av] 2416 [oz_av] TRAM ([facility]) Patient Treatment Plan of Care Planned Activity Planned Date Details Description Data Source (s) quetiapine 200 MG Oral Tablet TRAM ([facility]) Buprenorphine 8 MG Sublingual Tablet TRAM ([facility]) quetiapine 200 MG Oral Tablet TRAM ([facility]) Buprenorphine 8 MG Sublingual Tablet TRAM ([facility]) quetiapine 200 MG Oral Tablet TRAM ([facility]) Buprenorphine 8 MG Sublingual Tablet TRAM ([facility]) quetiapine 200 MG Oral Tablet TRAM ([facility]) Buprenorphine 8 MG Sublingual Tablet TRAM ([facility]) quetiapine 200 MG Oral Tablet TRAM ([facility]) Buprenorphine 8 MG Sublingual Tablet TRAM ([facility]) quetiapine 200 MG Oral Tablet TRAM ([facility]) Buprenorphine 8 MG Sublingual Tablet TRAM ([facility]) quetiapine 200 MG Oral Tablet TRAM ([facility]) Buprenorphine 8 MG Sublingual Tablet TRAM ([facility]) quetiapine 200 MG Oral Tablet TRAM ([facility]) Buprenorphine 8 MG Sublingual Tablet TRAM ([facility]) Buprenorphine 8 MG Sublingual Tablet TRAM ([facility]) Buprenorphine 8 MG Sublingual Tablet TRAM ([facility])
== END 2021-05-30 18:13 | disposition home or self-care (01) ==
LOC: M ED 13:17
DX: U07.1 COVID-19 (principal); J45.909 Unspecified asthma, uncomplicated; F41.9 Anxiety disorder, unspecified; F33.9 Major depressive disorder, recurrent, unspecified; F17.210 Nicotine dependence, cigarettes, uncomplicated; Z79.899 Other long term (current) drug therapy; Z88.8 Allergy status to other drugs, medicaments and biological substances; Z88.5 Allergy status to narcotic agent

== ENCOUNTER 2025-06-25 12:16 | Emergency (ER) | payer BC, OTHER, SELFPAY ==
[~2025-06-25] VITALS: Ht 172.7 cm; Wt 86.5 kg
[~2025-06-25 12:16] MED LIST changes: +IBUP80TA PO; +SUBO8MIS; +ZOLO100T
[2025-06-25] MEDS ORDERED: BUPR8SUB (12:38)
[2025-06-25 13:13] LABS: BASO # 0.1 10^3/uL (0.0-0.2); BASO % 0.9 % (0.0-1.0); EOS # 0.7 10^3/uL (0.0-0.5); EOS % 10.7 % (0.0-3.0); LYMPH # 1.8 10^3/uL (1.5-5.0); LYMPH % 28.8 % (24.0-44.0); MONO # 0.7 10^3/uL (0.0-0.8); MONO % 10.3 % (2.0-8.0); NEUTROPHILS # 3.1 10^3/uL (1.5-8.5); NEUTROPHILS % 49.1 % (36.0-66.0); PLATELET COUNT, AUTOMATED 201 10^3/uL (150-450)
[2025-06-25 13:27] LABS: KETONE, URINE AUTO RFX NEGATIVE (NEGATIVE); LEUKOCYTE ESTERASE UR AUTO RFX NEGATIVE (NEGATIVE); MUCUS, URINE RFX SMALL (NEGATIVE); NITRITE, URINE AUTO RFX NEGATIVE (NEGATIVE); RBC, URINE AUTO RFX 0 /HPF (0-3); SQUAM EPITHELIAL CELL UR AURFX 0 /HPF (0-6); WBC, URINE AUTO RFX 1 /HPF (0-3)
[2025-06-25 13:38] LABS: ALT/SGPT 30 U/L (7.0-40); AST/SGOT 23 U/L (<34); CALCIUM LEVEL 9.6 MG/DL (8.5-10.1); CARBON DIOXIDE LEVEL 29 MMOL/L (20-31); CHLORIDE LEVEL 104 MMOL/L (98-107); CREATININE FOR GFR 0.87 MG/DL (0.70-1.30); GLOMERULAR FILTRATION RATE > 90.0 (>60); POTASSIUM SERUM 4.1 MMOL/L (3.5-5.1); SODIUM LEVEL 142 MMOL/L (136-145)
[2025-06-25 15:31] VITALS: BP 110/74; TEMP 97.8; O2SAT 97
== END 2025-06-25 15:40 | disposition home or self-care (01) ==
LOC: M ED 12:16
DX: R10.9 Unspecified abdominal pain (principal); Z88.5 Allergy status to narcotic agent; Z88.6 Allergy status to analgesic agent; Z88.8 Allergy status to other drugs, medicaments and biological substances; Z79.899 Other long term (current) drug therapy